=== PATIENT | male | born 1945 | race Caucasian/White ===

== ENCOUNTER → 2016-05-20 | Outpatient (CLI) | payer MEDICARE, BC ==
--- NOTE | 2016-05-20 12:15 | REP ---
Clinical: Trauma. Technique: AP, lateral, bilateral oblique views left foot. Findings: The osseous structures and joint spaces are intact and normal for age. There is no evidence for acute fracture or dislocation. Surrounding soft tissues are unremarkable. No subcutaneous emphysema or radiodense foreign body. Small calcaneal heal spur. Impression: Age-appropriate left foot radiographs.
== END ==
LOC: M CLY 10:34
PROVIDERS: ATTEND Family Medicine
DX: M79.672 Pain in left foot (principal); E11.9 Type 2 diabetes mellitus without complications

== ENCOUNTER → 2016-05-20 | Outpatient (CLI) | payer MEDICARE, BC ==
[2016-05-20 17:10] LABS: ANION GAP 6 MEQ/L (8-16); BLOOD UREA NITROGEN 18 MG/DL (7-18); CALCIUM LEVEL 9.1 MG/DL (8.8-10.2); CARBON DIOXIDE LEVEL 31 MEQ/L (21-32); CHLORIDE LEVEL 104 MEQ/L (98-107); CREATININE FOR GFR 1.02 MG/DL (0.70-1.30); GLOMERULAR FILTRATION RATE > 60.0 (>42); GLUCOSE, FASTING 114 MG/DL (83-110); POTASSIUM SERUM 4.3 MEQ/L (3.5-5.1); SODIUM LEVEL 141 MEQ/L (136-145); URIC ACID 7.2 MG/DL (3.5-7.2)
== END ==
LOC: M CLY 10:13
PROVIDERS: ATTEND Family Medicine
DX: M79.672 Pain in left foot (principal); E11.9 Type 2 diabetes mellitus without complications

== ENCOUNTER → 2016-08-19 | Outpatient (REF) | payer MEDICARE, BC ==
[2016-08-19 11:29] LABS: ANION GAP 6 MEQ/L (8-16); BLOOD UREA NITROGEN 15 MG/DL (7-18); CALCIUM LEVEL 8.9 MG/DL (8.8-10.2); CARBON DIOXIDE LEVEL 31 MEQ/L (21-32); CHLORIDE LEVEL 103 MEQ/L (98-107); GLOMERULAR FILTRATION RATE > 60.0 (>42); GLUCOSE, FASTING 128 MG/DL (83-110); POTASSIUM SERUM 4.6 MEQ/L (3.5-5.1); SODIUM LEVEL 140 MEQ/L (136-145)
== END ==
LOC: M LABDRAWC 10:44
PROVIDERS: ATTEND Internal Medicine Cardiovascular Disease
DX: E11.9 Type 2 diabetes mellitus without complications (principal); I10 Essential (primary) hypertension; I25.10 Atherosclerotic heart disease of native coronary artery without angina pectoris

== ENCOUNTER → 2016-09-17 | Outpatient (REF) | payer MEDICARE, BC | LOC: M SFHCCLAY 08:31 | PROVIDERS: ATTEND Family Medicine | DX: E11.9 Type 2 diabetes mellitus without complications (principal); Z95.5 Presence of coronary angioplasty implant and graft; J44.9 Chronic obstructive pulmonary disease, unspecified ==

== ENCOUNTER → 2016-09-21 | Outpatient (REF) | payer MEDICARE, BC ==
[2016-09-21 11:56] LABS: MEAN CORPUSCULAR HEMOGLOBIN 33.8 pg (27.0-33.0); MEAN CORPUSCULAR HGB CONC 32.1 g/dl (32.0-36.5); MEAN CORPUSCULAR VOLUME 105.2 fl (80.0-96.0); RED CELL DISTRIBUTION WIDTH 12.1 % (11.5-14.5); WHITE BLOOD COUNT 4.9 K/mm3 (4.0-10.0)
[2016-09-21 12:39] LABS: ALBUMIN 3.9 GM/DL (3.2-5.2); ALKALINE PHOSPHATASE 63 U/L (45-117); ALT/SGPT 43 U/L (12-78); ANION GAP 6 MEQ/L (8-16); AST/SGOT 20 U/L (15-37); BILIRUBIN,TOTAL 0.8 MG/DL (0.2-1.0); BLOOD UREA NITROGEN 17 MG/DL (7-18); CALCIUM LEVEL 9.1 MG/DL (8.8-10.2); CARBON DIOXIDE LEVEL 31 MEQ/L (21-32); CHLORIDE LEVEL 105 MEQ/L (98-107); CHOLESTEROL LEVEL 119 MG/DL (<200); CREATININE FOR GFR 1.06 MG/DL (0.70-1.30); GLOMERULAR FILTRATION RATE > 60.0 (>42); GLUCOSE, FASTING 137 MG/DL (83-110); POTASSIUM SERUM 4.4 MEQ/L (3.5-5.1); SODIUM LEVEL 142 MEQ/L (136-145); TOTAL PROTEIN 6.9 GM/DL (6.4-8.2); TRIGLYCERIDES LEVEL 140 MG/DL (<150)
== END ==
LOC: M SFHCCLAY 07:05
PROVIDERS: ATTEND Family Medicine
DX: J44.9 Chronic obstructive pulmonary disease, unspecified (principal); E11.9 Type 2 diabetes mellitus without complications; Z95.5 Presence of coronary angioplasty implant and graft

== ENCOUNTER → 2016-10-14 | Outpatient (REF) | payer MEDICARE, BC ==
[2016-10-14 11:55] LABS: VITAMIN B12 LEVEL 270 PG/ML (247-911)
[2016-10-14 11:56] LABS: FOLATE > 24.0 NG/ML (>5.4)
== END ==
LOC: M SFHCCLAY 07:06
PROVIDERS: ATTEND Family Medicine
DX: D53.9 Nutritional anemia, unspecified (principal)
CPT/HCPCS: 82607; 82746; 83921; G0463

== ENCOUNTER → 2016-11-10 | Outpatient (CLI) | payer MEDICARE, BC ==
--- NOTE | 2016-11-10 12:34 | REP ---
Lumbar spine five views: There are no comparisons. There is mild grade 1 concave compression deformity of the L2 superior endplate. Vertebral body heights are otherwise normal. Vertebral alignment is normal. Interspacing is normal. There is surgical fusion at L5 S1 with pedicle screws and stabilization rods. The pedicles, facets and sacroiliac articulations are unremarkable. Impression: Grade 1 compression deformity of the L2 vertebral body superior endplate. Surgical fusion of L5 and S1. Otherwise, negative lumbar spine.
== END ==
LOC: M CLY 11:53
PROVIDERS: ATTEND Nurse Practitioner Family
DX: M51.36 Other intervertebral disc degeneration, lumbar region (principal); M43.27 Fusion of spine, lumbosacral region
CPT/HCPCS: 72110; G0463

== ENCOUNTER → 2016-12-07 | Outpatient (CLI) | payer MEDICARE, BC ==
--- NOTE | 2016-12-07 13:41 | REP ---
THREE-PHASE BONE SCAN OF THE LUMBAR SPINE REGION. HISTORY: Low back pain. TECHNIQUE: 21.6 mCi technetium 99m MDP is injected and standard imaging is acquired. FINDINGS: Anterior and posterior flow images are normal. Blood pool images show no abnormal soft tissue localization. Delayed scan images show normal distribution of skeletal tracer with uptake in bilateral kidneys and in the bladder. No abnormal lumbosacral spine uptake is seen. IMPRESSION: Negative three-phase bone scan imaging. Signed by Ankur Godoy MD 12/07/2016 03:53 P
== END ==
LOC: M RAD 10:13
PROVIDERS: ATTEND Orthopaedic Surgery
DX: M54.5 Low back pain (principal)
CPT/HCPCS: 78315; A9503

== ENCOUNTER → 2017-01-20 | Outpatient (REF) | payer MEDICARE, BC ==
[2017-01-20 17:42] LABS: MEAN CORPUSCULAR HEMOGLOBIN 33.7 pg (27.0-33.0); MEAN CORPUSCULAR HGB CONC 32.1 g/dl (32.0-36.5); MEAN CORPUSCULAR VOLUME 104.8 fl (80.0-96.0); PLATELET COUNT, AUTOMATED 250 10^3/uL (150-450); RED CELL DISTRIBUTION WIDTH 12.3 % (11.5-14.5); WHITE BLOOD COUNT 7.1 10^3/uL (4.0-10.0)
[2017-01-20 19:07] LABS: VITAMIN B12 LEVEL 318 PG/ML (247-911)
== END ==
LOC: M SFHCCLAY 11:13
PROVIDERS: ATTEND Family Medicine
DX: D53.9 Nutritional anemia, unspecified (principal); E11.9 Type 2 diabetes mellitus without complications; Z23 Encounter for immunization
CPT/HCPCS: 82607; 83036; 83540; 85027; 90662; G0008; G0463

== ENCOUNTER → 2017-04-20 | Outpatient (REF) | payer OTHER ==
[2017-04-20 19:06] LABS: ANION GAP 4 MEQ/L (8-16); BLOOD UREA NITROGEN 18 MG/DL (7-18); CALCIUM LEVEL 8.8 MG/DL (8.8-10.2); CARBON DIOXIDE LEVEL 32 MEQ/L (21-32); CHLORIDE LEVEL 104 MEQ/L (98-107); CREATININE FOR GFR 1.03 MG/DL (0.70-1.30); GLOMERULAR FILTRATION RATE > 60.0 (>42); GLUCOSE, FASTING 126 MG/DL (70-100); POTASSIUM SERUM 4.5 MEQ/L (3.5-5.1); SODIUM LEVEL 140 MEQ/L (136-145)
[2017-04-20 19:57] LABS: CREATININE, URINE 37.5 MG/DL; MALB URINE SIEMENS < 5.0 MG/L; MAU/CREAT RATIO 13.3 MCG/MG (0.0-30.0)
[2017-04-20 20:03] LABS: ESTIMATED AVERAGE GLUCOSE 169 MG/DL (60-110); HEMOGLOBIN A1c 7.5 %
== END ==
LOC: M SFHCCLAY 10:55
DX: I95.1 Orthostatic hypotension (principal); E11.9 Type 2 diabetes mellitus without complications
CPT/HCPCS: 83036

== ENCOUNTER → 2017-05-11 | Outpatient (CLI) | payer OTHER | LOC: M RAD 13:18 | DX: M51.26 Other intervertebral disc displacement, lumbar region (principal) | CPT/HCPCS: 72148 ==

== ENCOUNTER → 2017-08-09 | Outpatient (REF) | payer OTHER ==
[2017-08-09 14:05] LABS: AMORPHOUS SEDIMENT SMALL (NEGATIVE); APPEARANCE, URINE CLEAR (CLEAR); BACTERIA, URINE AUTO NEGATIVE (NEGATIVE); BILIRUBIN, URINE AUTO NEGATIVE (NEGATIVE); BLOOD, URINE BLOOD NEGATIVE (NEGATIVE); COLOR, URINE YELLOW (YELLOW); GLUCOSE, URINE (UA) AUTO NEGATIVE (NEGATIVE); KETONE, URINE AUTO NEGATIVE (NEGATIVE); LEUKOCYTE ESTERASE, URINE AUTO NEGATIVE (NEGATIVE); NITRITE, URINE AUTO NEGATIVE (NEGATIVE); PROTEIN, URINE AUTO NEGATIVE (NEGATIVE); RBC, URINE AUTO 1 /HPF (0-3); SPECIFIC GRAVITY URINE AUTO 1.014 (1.002-1.035); SQUAMOUS EPITHELIAL CELL UR AU 0 /HPF (0-6); UROBILINOGEN, URINE AUTO 0.2 mg/dL (0.0-2.0); WBC, URINE AUTO 0 /HPF (0-3)
== END ==
LOC: M SMT 12:57
DX: Z08 Encounter for follow-up examination after completed treatment for malignant neoplasm (principal); Z85.46 Personal history of malignant neoplasm of prostate; Z79.899 Other long term (current) drug therapy
CPT/HCPCS: 81001

== ENCOUNTER → 2017-08-09 | Outpatient (CLI) | payer OTHER ==
[2017-08-09 19:24] LABS: PROSTATIC SPECIFIC AG MONITOR 0.19 NG/ML (< 4.0)
== END ==
LOC: M SMT 13:33
DX: Z08 Encounter for follow-up examination after completed treatment for malignant neoplasm (principal); Z85.46 Personal history of malignant neoplasm of prostate
CPT/HCPCS: 84153

== ENCOUNTER → 2017-10-19 | Outpatient (REF) | payer OTHER ==
[2017-10-19 17:08] LABS: ALBUMIN 3.9 GM/DL (3.2-5.2); ALBUMIN/GLOBULIN RATIO 1.18 (1.00-1.93); ALKALINE PHOSPHATASE 69 U/L (45-117); ALT/SGPT 25 U/L (12-78); ANION GAP 7 MEQ/L (8-16); AST/SGOT 8 U/L (7-37); BILIRUBIN,TOTAL 0.5 MG/DL (0.2-1.0); BLOOD UREA NITROGEN 19 MG/DL (7-18); CARBON DIOXIDE LEVEL 31 MEQ/L (21-32); CHLORIDE LEVEL 105 MEQ/L (98-107); CREATININE FOR GFR 1.05 MG/DL (0.70-1.30); GLOMERULAR FILTRATION RATE > 60.0 (>42); GLUCOSE, FASTING 99 MG/DL (70-100); IRON (FE) 107 UG/DL (65-175); PERCENT SATURATION 31.8 % (19.7-50.0); POTASSIUM SERUM 4.3 MEQ/L (3.5-5.1); SODIUM LEVEL 143 MEQ/L (136-145); TOTAL IRON BINDING CAPACITY 336 UG/DL (250-450); TOTAL PROTEIN 7.2 GM/DL (6.4-8.2); VITAMIN B12 LEVEL 338 PG/ML (247-911)
[2017-10-19 17:11] LABS: ESTIMATED AVERAGE GLUCOSE 166 MG/DL (60-110); HEMOGLOBIN A1c 7.4 %
[2017-10-19 17:12] LABS: HEMATOCRIT 39.9 % (42.0-52.0); HEMOGLOBIN 12.9 g/dl (13.5-17.5); MEAN CORPUSCULAR HEMOGLOBIN 33.5 pg (27.0-33.0); MEAN CORPUSCULAR HGB CONC 32.3 g/dl (32.0-36.5); MEAN CORPUSCULAR VOLUME 103.6 fl (80.0-96.0); PLATELET COUNT, AUTOMATED 268 10^3/uL (150-450); RED BLOOD COUNT 3.85 10^6/uL (4.30-6.10); RED CELL DISTRIBUTION WIDTH 12.5 % (11.5-14.5); WHITE BLOOD COUNT 6.1 10^3/uL (4.0-10.0)
== END ==
LOC: M SFHCCLAY 10:51
DX: E11.9 Type 2 diabetes mellitus without complications (principal); D64.9 Anemia, unspecified
CPT/HCPCS: 83550

== ENCOUNTER 2017-10-25 07:09 | Day surgery (SDC) | payer OTHER ==
[2017-10-25] MEDS ORDERED: PROPOFOL 200 MG/20 ML VIAL As Ordered (07:12)
[2017-10-25] MEDS ORDERED: LIDOCAINE 2% INJ 100 MG/5 ML SDV (FOR ANES.) As Ordered (07:12)
== END 2017-10-25 08:52 | disposition home or self-care (01) ==
LOC: M OPP 07:09
DX: Z12.11 Encounter for screening for malignant neoplasm of colon (principal); Z86.010 Personal history of colon polyps; K57.30 Diverticulosis of large intestine without perforation or abscess without bleeding; I25.10 Atherosclerotic heart disease of native coronary artery without angina pectoris; Z95.5 Presence of coronary angioplasty implant and graft; E78.5 Hyperlipidemia, unspecified; E11.9 Type 2 diabetes mellitus without complications; M19.90 Unspecified osteoarthritis, unspecified site; M54.9 Dorsalgia, unspecified; Z85.46 Personal history of malignant neoplasm of prostate; Z92.3 Personal history of irradiation; J44.9 Chronic obstructive pulmonary disease, unspecified; G93.49 Other encephalopathy; Z87.891 Personal history of nicotine dependence; Z79.82 Long term (current) use of aspirin; Z79.899 Other long term (current) drug therapy; Z79.84 Long term (current) use of oral hypoglycemic drugs
CPT/HCPCS: G0105

== ENCOUNTER → 2018-02-16 | Outpatient (REF) | payer OTHER ==
[2018-02-16 16:49] LABS: ALBUMIN 3.9 GM/DL (3.2-5.2); ANION GAP 6 MEQ/L (8-16); BLOOD UREA NITROGEN 23 MG/DL (7-18); CALCIUM LEVEL 8.7 MG/DL (8.8-10.2); CARBON DIOXIDE LEVEL 30 MEQ/L (21-32); CHLORIDE LEVEL 102 MEQ/L (98-107); CREATININE FOR GFR 0.98 MG/DL (0.70-1.30); GLOMERULAR FILTRATION RATE > 60.0 (>42); GLUCOSE, FASTING 157 MG/DL (70-100); PHOSPHORUS LEVEL 2.8 MG/DL (2.5-4.9); POTASSIUM SERUM 4.8 MEQ/L (3.5-5.1); SODIUM LEVEL 138 MEQ/L (136-145)
[2018-02-16 17:01] LABS: ESTIMATED AVERAGE GLUCOSE 171 MG/DL (60-110); HEMOGLOBIN A1c 7.6 %
[2018-02-16 17:08] LABS: CREATININE, URINE 93.9 MG/DL; MALB URINE SIEMENS 5.1 MG/L; MAU/CREAT RATIO 5.4 MCG/MG (0.0-30.0)
== END ==
LOC: M SFHCCLAY 10:17
DX: I25.10 Atherosclerotic heart disease of native coronary artery without angina pectoris (principal); E11.9 Type 2 diabetes mellitus without complications
CPT/HCPCS: 80069

== ENCOUNTER → 2018-07-07 | Outpatient (REF) | payer MEDICARE ==
[~2018-07-07] MED LIST: ASPI1TAB15 PO; ATOR40TA75 PO; CARV3.12 PO; FLAX10002 PO; FLOM0.4C39 PO; FLON1SPR; GLUC500T PO; MAGN400C PO; MULT1TAB10 PO; OSTETAB4 PO; TIOT18INH INH; VENTAER IN
[2018-07-08 12:19] LABS: HEMOGLOBIN A1c 8.1 %
[2018-07-08 12:28] LABS: BLOOD UREA NITROGEN 23 MG/DL (7-18); CARBON DIOXIDE LEVEL 31 MEQ/L (21-32); CHLORIDE LEVEL 102 MEQ/L (98-107); CREATININE FOR GFR 1.04 MG/DL (0.70-1.30); GLOMERULAR FILTRATION RATE > 60.0 (>42); GLUCOSE, FASTING 171 MG/DL (70-100); POTASSIUM SERUM 5.5 MEQ/L (3.5-5.1); SODIUM LEVEL 138 MEQ/L (136-145)
== END ==
LOC: M SFHCCLAY 14:32
PROVIDERS: ATTEND Family Medicine
DX: E11.9 Type 2 diabetes mellitus without complications (principal); K52.9 Noninfective gastroenteritis and colitis, unspecified
CPT/HCPCS: 80048; 83036; 84443; G0463

== ENCOUNTER → 2018-07-08 | Outpatient (REF) | payer MEDICARE | LOC: M LABDRAWC 11:43 | PROVIDERS: ATTEND Family Medicine | DX: E11.9 Type 2 diabetes mellitus without complications (principal); K52.9 Noninfective gastroenteritis and colitis, unspecified ==

== ENCOUNTER → 2018-07-13 | Outpatient (REF) | payer MEDICARE | LOC: M SFHCCLAY 09:26 | PROVIDERS: ATTEND Family Medicine | DX: E87.5 Hyperkalemia (principal) ==

== ENCOUNTER → 2018-11-18 | Outpatient (REF) | payer MEDICARE ==
[2018-11-18 16:56] LABS: BLOOD UREA NITROGEN 18 MG/DL (7-18); CARBON DIOXIDE LEVEL 30 MEQ/L (21-32); CHLORIDE LEVEL 104 MEQ/L (98-107); CREATININE FOR GFR 1.01 MG/DL (0.70-1.30); GLOMERULAR FILTRATION RATE > 60.0 (>42); GLUCOSE, FASTING 141 MG/DL (70-100); POTASSIUM SERUM 4.4 MEQ/L (3.5-5.1); PROSTATIC SPECIFIC AG MONITOR 0.68 NG/ML (< 4.00); SODIUM LEVEL 141 MEQ/L (136-145)
[2018-11-18 17:17] LABS: HEMOGLOBIN A1c 8.6 %
== END ==
LOC: M SFHCCLAY 11:55
PROVIDERS: ATTEND Family Medicine
DX: E11.9 Type 2 diabetes mellitus without complications (principal); Z85.46 Personal history of malignant neoplasm of prostate
CPT/HCPCS: 80048; 83036; 84153; G0463

== ENCOUNTER → 2019-01-31 | Outpatient (REF) | payer MEDICARE ==
[2019-01-31 17:12] LABS: BASO % 0.4 % (0.0-1.0); EOS # 0.1 10^3/uL (0.0-0.5); EOS % 1.5 % (0.0-3.0); HEMATOCRIT 41.2 % (42.0-52.0); LYMPH # 1.5 10^3/uL (1.5-5.0); LYMPH % 20.5 % (24.0-44.0); MEAN CORPUSCULAR HEMOGLOBIN 33.8 pg (27.0-33.0); MEAN CORPUSCULAR HGB CONC 31.6 g/dl (32.0-36.5); NEUTROPHILS # 4.7 10^3/uL (1.5-8.5); NEUTROPHILS % 63.9 % (36.0-66.0); PLATELET COUNT, AUTOMATED 263 10^3/uL (150-450); RED BLOOD COUNT 3.85 10^6/uL (4.30-6.10); WHITE BLOOD COUNT 7.4 10^3/uL (4.0-10.0)
[2019-01-31 17:26] LABS: ALBUMIN 3.9 GM/DL (3.2-5.2); ALT/SGPT 38 U/L (12-78); BILIRUBIN,TOTAL 0.4 MG/DL (0.2-1.0); BLOOD UREA NITROGEN 21 MG/DL (7-18); C REACTIVE PROTEIN QUANTITATIV < 0.30 MG/DL (0.00-0.30); CALCIUM LEVEL 9.3 MG/DL (8.8-10.2); CARBON DIOXIDE LEVEL 32 MEQ/L (21-32); CHLORIDE LEVEL 103 MEQ/L (98-107); CREATININE FOR GFR 1.08 MG/DL (0.70-1.30); GLOMERULAR FILTRATION RATE > 60.0 (>42); GLUCOSE, FASTING 113 MG/DL (70-100); POTASSIUM SERUM 5.1 MEQ/L (3.5-5.1); SODIUM LEVEL 138 MEQ/L (136-145); TOTAL PROTEIN 6.9 GM/DL (6.4-8.2)
[2019-01-31 17:29] LABS: HEMOGLOBIN A1c 7.3 %
== END ==
LOC: M SFHCCLAY 10:45
PROVIDERS: ATTEND Family Medicine
DX: E11.9 Type 2 diabetes mellitus without complications (principal); S81.802D Unspecified open wound, left lower leg, subsequent encounter; Z23 Encounter for immunization
CPT/HCPCS: 80053; 83036; 85025; 86140; 90682; G0008; G0463

== ENCOUNTER → 2019-03-09 | Outpatient (CLI) | payer MEDICARE ==
--- NOTE | 2019-03-09 14:15 | REP ---
Five views left knee: 03/09/2019. Indication: Knee pain following injury. Comparison: None. Findings: There is no acute fracture, subluxation or dislocation. No lytic or blastic lesions are present. Peripheral vascular atherosclerotic disease is noted. There is no significant joint effusion. Impression: No acute osseous injury of the left knee. Electronically Signed by Kolby Hauser DO 03/09/2019 02:07 P
== END ==
LOC: M CLY 11:48
PROVIDERS: ATTEND Family Medicine
DX: S89.92XA Unspecified injury of left lower leg, initial encounter (principal); W19.XXXA Unspecified fall, initial encounter; Y92.9 Unspecified place or not applicable
CPT/HCPCS: 73564; G0463

== ENCOUNTER → 2019-06-02 | Outpatient (REF) | payer MEDICARE ==
[2019-06-02 11:27] LABS: HEMATOCRIT 42.1 % (42.0-52.0); HEMOGLOBIN 13.4 g/dl (13.5-17.5); MEAN CORPUSCULAR HEMOGLOBIN 33.3 pg (27.0-33.0); MEAN CORPUSCULAR HGB CONC 31.8 g/dl (32.0-36.5); MEAN CORPUSCULAR VOLUME 104.7 fl (80.0-96.0); PLATELET COUNT, AUTOMATED 288 10^3/uL (150-450); RED BLOOD COUNT 4.02 10^6/uL (4.30-6.10); WHITE BLOOD COUNT 7.7 10^3/uL (4.0-10.0)
[2019-06-02 11:46] LABS: HEMOGLOBIN A1c 6.7 %
[2019-06-02 12:00] LABS: ALT/SGPT 45 U/L (12-78); BLOOD UREA NITROGEN 20 MG/DL (7-18); CALCIUM LEVEL 9.2 MG/DL (8.8-10.2); CARBON DIOXIDE LEVEL 29 MEQ/L (21-32); CHLORIDE LEVEL 106 MEQ/L (98-107); CREATININE FOR GFR 1.06 MG/DL (0.70-1.30); GLOMERULAR FILTRATION RATE > 60.0 (>42); GLUCOSE, FASTING 101 MG/DL (70-100); POTASSIUM SERUM 4.8 MEQ/L (3.5-5.1); SODIUM LEVEL 139 MEQ/L (136-145)
== END ==
LOC: M SFHCCLAY 08:45
PROVIDERS: ATTEND Family Medicine
DX: E11.9 Type 2 diabetes mellitus without complications (principal); I25.10 Atherosclerotic heart disease of native coronary artery without angina pectoris; J44.9 Chronic obstructive pulmonary disease, unspecified; M48.062 Spinal stenosis, lumbar region with neurogenic claudication

== ENCOUNTER → 2019-11-16 | Outpatient (REF) | payer MEDICARE ==
[~2019-11-16] MED LIST changes: +ASPI-546 PO; -ASPI1TAB15 PO
== END ==
LOC: M LAB REF 08:30
PROVIDERS: ATTEND Dermatology
DX: D04.61 Carcinoma in situ of skin of right upper limb, including shoulder (principal)

== ENCOUNTER → 2020-01-04 | Outpatient (REF) | payer MEDICARE ==
[2020-01-04 16:10] LABS: HEMATOCRIT 38.6 % (42.0-52.0); HEMOGLOBIN 11.9 g/dl (13.5-17.5); MEAN CORPUSCULAR HGB CONC 30.8 g/dl (32.0-36.5); MEAN CORPUSCULAR VOLUME 106.9 fl (80.0-96.0); PLATELET COUNT, AUTOMATED 246 10^3/uL (150-450); RED BLOOD COUNT 3.61 10^6/uL (4.30-6.10); WHITE BLOOD COUNT 7.2 10^3/uL (4.0-10.0)
[2020-01-04 16:30] LABS: HEMOGLOBIN A1c 6.8 %
[2020-01-04 16:41] LABS: ALBUMIN 3.5 GM/DL (3.2-5.2); ALT/SGPT 30 U/L (12-78); BILIRUBIN,TOTAL 0.4 MG/DL (0.2-1.0); BLOOD UREA NITROGEN 16 MG/DL (7-18); CALCIUM LEVEL 8.9 MG/DL (8.8-10.2); CARBON DIOXIDE LEVEL 32 MEQ/L (21-32); CHLORIDE LEVEL 105 MEQ/L (98-107); CREATININE FOR GFR 0.97 MG/DL (0.70-1.30); FREE T4 0.79 NG/DL (0.76-1.46); GLOMERULAR FILTRATION RATE > 60.0 (>42); GLUCOSE, FASTING 105 MG/DL (70-100); POTASSIUM SERUM 4.5 MEQ/L (3.5-5.1); PROLACTIN 3.6 NG/ML (2.1-17.7); SODIUM LEVEL 141 MEQ/L (136-145); TOTAL PROTEIN 6.7 GM/DL (6.4-8.2)
== END ==
LOC: M SFHCCLAY 14:21
PROVIDERS: ATTEND Family Medicine
DX: E11.9 Type 2 diabetes mellitus without complications (principal); D35.2 Benign neoplasm of pituitary gland; H61.22 Impacted cerumen, left ear; Z23 Encounter for immunization
CPT/HCPCS: 69210; 80053; 83036; 84146; 84439; 84443; 85027; 90682; G0008; G0463

== ENCOUNTER → 2020-01-22 | Outpatient (CLI) | payer MEDICARE ==
--- NOTE | 2020-01-22 15:44 | REP ---
INDICATION: PAIN IN RIGHT HIP, FALL AT SAME LEVEL AGAINST OBJECT. COMPARISON: None. TECHNIQUE: Two views right hip performed. FINDINGS: There is no acute fracture or dislocation. Hip joint appears relatively well preserved. There are scattered vascular calcifications in the soft tissues medially. IMPRESSION: No acute fracture or dislocation. <Electronically signed by Mejia Argueta > 01/22/20 [id number]
== END ==
LOC: M WUC 15:18
PROVIDERS: ATTEND Physician Assistant
DX: M25.551 Pain in right hip (principal)

== ENCOUNTER → 2020-02-06 | Outpatient (CLI) | payer MEDICARE ==
--- NOTE | 2020-02-06 12:37 | REP ---
INDICATION: J44.9, COPD. COMPARISON: PA chest 07/11/2014 TECHNIQUE: Two views FINDINGS: Lungs are hyperinflated with a changes COPD and bullous emphysematous changes mid and upper lung zones. There is some linear scarring in the left CP angle. Other areas of basilar scarring are noted there is no pleural effusion, pleural based mass, acute infiltrate or pulmonary nodule. The heart is not enlarged. The aorta is mildly tortuous but normal for age. The airway is intact pulmonary artery symmetric and unchanged. Bones show no compression deformity or focal lesion. There is an azygos lobe fissure in the medial right apex as anatomic variation. Surgical anchors are noted in the region of the right humeral head. There is no free air under the diaphragm. No compression deformity in the spine. IMPRESSION: : 1. 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 No effusion, acute infiltrate, atelectasis or mass. 2. No cardiomegaly or edema. <Electronically signed by Michael Garg > 02/06/20 [id number]
--- NOTE | 2020-02-06 12:41 | REP ---
INDICATION: M47.812, CERVICAL SPONDYLOSIS. COMPARISON: None. TECHNIQUE: Nine views are provided. FINDINGS: Number lordosis on the lateral view. Spondylosis at C5-6. No prevertebral swelling. Patient is edentulous. Flexion extension show a somewhat limited flexion but adequate extension and overall decreased range of motion. Cervicothoracic junction aligns normally. The dens is and lateral masses align normally on the open mouth view. There is no torticollis. Some facet arthropathy and uncinate spurring contributing to some narrowing of the C5-6 foramina on the right with uncinate spurring on the left at C5-6, mild. No torticollis. IMPRESSION: Degenerative disc and facet arthritic changes in the cervical spine. Decreased range of motion with no instability or compression fracture. Foraminal encroachment at C5-6 bilaterally due to uncinate and facet spurs. Posterior elements without acute finding. <Electronically signed by Michael Garg > 02/06/20 [id number]
--- NOTE | 2020-02-06 14:58 | REP ---
INDICATION: M25.512, PAIN IN LEFT SHOULDER. COMPARISON: None. TECHNIQUE: Three views provided. FINDINGS: The AC joint shows no narrowing the or widening of the joint space. There is no elevation of the clavicle in relationship to the acromion. Small inferior spurs. Clavicle and scapula are without fracture humeral head articulates normally with the glenoid with no subluxation dislocation and minimal degenerative changes inferiorly of the glenohumeral joint. Visualized ribs intact. No abnormal calcifications. IMPRESSION: 1. A single humeral joint degenerative change without visible or displaced fracture, avulsion, subluxation or abnormal soft tissue calcification. <Electronically signed by Michael Garg > 02/06/20 [id number]
== END ==
LOC: M CLY 11:16
PROVIDERS: ATTEND Family Medicine
DX: M19.012 Primary osteoarthritis, left shoulder (principal); J44.9 Chronic obstructive pulmonary disease, unspecified; M47.812 Spondylosis without myelopathy or radiculopathy, cervical region; M25.512 Pain in left shoulder

== ENCOUNTER → 2020-02-06 | Outpatient (REF) | payer MEDICARE ==
[2020-02-08 13:33] LABS: FOLATE 14.2 NG/ML (>5.4)
== END ==
LOC: M SFHCCLAY 12:08
PROVIDERS: ATTEND Family Medicine
DX: D53.9 Nutritional anemia, unspecified (principal)

== ENCOUNTER → 2020-02-12 | Outpatient (REF) | payer MEDICARE | LOC: M LAB REF 17:07 | PROVIDERS: ATTEND Dermatology | DX: L90.5 Scar conditions and fibrosis of skin (principal) ==

== ENCOUNTER → 2020-03-11 | Outpatient (CLI) | payer MEDICARE ==
--- NOTE | 2020-03-11 14:09 | REP ---
INDICATION: R07.9, CHEST PAIN. COMPARISON: Rib series dated 07/11 in 2014 and PA and lateral chest dated 02/06/2020. TECHNIQUE: Upright PA and lateral chest. FINDINGS: The lung dumont are clear but again appear hyperinflated. This is unchanged. There is minor chronic parenchymal scarring inferiorly in the left lung, unchanged. Cardiac size is normal. The rosenda, mediastinum, and skeletal structures are unremarkable for patient age except for 2 small orthopedic screws in the or right E humeral head, unchanged. IMPRESSION: Chronic hyperinflation. Chronic scarring inferiorly in the left lung. Small orthopedic screws in the right humeral head. No acute infiltrates or effusions. No masses or nodules. <Electronically signed by Mejia Ulrich > 03/11/20 [id number]
--- NOTE | 2020-03-11 14:11 | REP ---
INDICATION: R07.9, CHEST PAIN. COMPARISON: PA and lateral chest performed this same date. TECHNIQUE: There are five views. FINDINGS: There is no left rib fracture or other left rib abnormality. On the comparison PA and lateral views of the chest performed this same date there is no pneumothorax, hemothorax or pulmonary contusion. There is chronic minor scarring inferiorly in the left lung. IMPRESSION: No left rib fracture or other rib abnormality. <Electronically signed by Mejia Ulrich > 03/11/20 [id number]
== END ==
LOC: M CLY 13:37
PROVIDERS: ATTEND Physician Assistant
DX: R07.9 Chest pain, unspecified (principal)

== ENCOUNTER → 2020-04-18 | Outpatient (CLI) | payer MEDICARE ==
--- NOTE | 2020-04-18 09:38 | REP ---
INDICATION: WORSENING COUGH X 3 MONTHS, RECURRET RALES AND RONCHI. COMPARISON: Comparison chest x-ray March 11, 2020. TECHNIQUE: Two views.. FINDINGS: There is a zone linear fibrosis again noted in the left base. Mild interstitial fibrosis is seen in the right base. Lung dumont are otherwise clear. An azygos lobe is again noted incidentally. Pleural angles are sharp. Heart is not enlarged. Aorta is somewhat tortuous. Metallic orthopedic anchors are noted in the right humeral head. No acute bony abnormality. IMPRESSION: Bibasilar fibrosis mild in degree. No active disease.. <Electronically signed by Binh Godoy > 04/18/20 [id number]
== END ==
LOC: M CLY 09:16
PROVIDERS: ATTEND Physician Assistant
DX: R05 Cough (principal)

== ENCOUNTER → 2020-05-09 | Outpatient (CLI) | payer MEDICARE ==
--- NOTE | 2020-05-09 11:57 | REP ---
INDICATION: TENDINOPATHY; F/U BLOOD PRESSURE. COMPARISON: Comparison chest x-ray April 18, 2020. TECHNIQUE: Two views.. FINDINGS: An azygos lobe is noted in the right lung apex incidentally and unchanged. There is linear fibrosis in the left base. Lung dumont are otherwise clear. Pleural angles are sharp. Heart size is normal and unchanged. Pulmonary vasculature is not increased. There are 2 orthopedic anchors in the humeral head on the right. IMPRESSION: Linear fibrosis left base. Azygos lobe. No active disease.. <Electronically signed by Binh Godoy > 05/09/20 [id number]
== END ==
LOC: M CLY 10:56
PROVIDERS: ATTEND Family Medicine
DX: J84.10 Pulmonary fibrosis, unspecified (principal); M67.90 Unspecified disorder of synovium and tendon, unspecified site

== ENCOUNTER → 2020-05-23 | Outpatient (REF) | payer MEDICARE ==
[2020-05-23 13:57] LABS: APPEARANCE, URINE CLEAR (CLEAR); BACTERIA, URINE AUTO NEGATIVE (NEGATIVE); BILIRUBIN, URINE AUTO NEGATIVE (NEGATIVE); BLOOD, URINE BLOOD NEGATIVE (NEGATIVE); COLOR, URINE YELLOW (YELLOW); GLUCOSE, URINE (UA) AUTO NEGATIVE (NEGATIVE); KETONE, URINE AUTO NEGATIVE (NEGATIVE); LEUKOCYTE ESTERASE, URINE AUTO NEGATIVE (NEGATIVE); NITRITE, URINE AUTO NEGATIVE (NEGATIVE); PROTEIN, URINE AUTO NEGATIVE (NEGATIVE); RBC, URINE AUTO 17 /HPF (0-3); SPECIFIC GRAVITY URINE AUTO 1.016 (1.002-1.035); SQUAMOUS EPITHELIAL CELL UR AU 0 /HPF (0-6); UROBILINOGEN, URINE AUTO 0.2 mg/dL (0.0-2.0); WBC, URINE AUTO 1 /HPF (0-3)
== END ==
LOC: M SMT 13:20
PROVIDERS: ATTEND Nurse Practitioner Women's Health
DX: R39.198 Other difficulties with micturition (principal)

== ENCOUNTER → 2020-05-24 | Outpatient (REF) | payer MEDICARE | LOC: M LABSMT 10:41 | PROVIDERS: ATTEND Nurse Practitioner Women's Health | DX: Z85.46 Personal history of malignant neoplasm of prostate (principal) ==

== ENCOUNTER → 2020-09-10 | Outpatient (REF) | payer MEDICARE ==
[2020-09-10 17:02] LABS: BLOOD UREA NITROGEN 23 MG/DL (7-18); CALCIUM LEVEL 9.7 MG/DL (8.8-10.2); CARBON DIOXIDE LEVEL 28 MEQ/L (21-32); CHLORIDE LEVEL 107 MEQ/L (98-107); CREATININE FOR GFR 0.92 MG/DL (0.70-1.30); GLOMERULAR FILTRATION RATE > 60.0 (>42); GLUCOSE, FASTING 67 MG/DL (70-100); POTASSIUM SERUM 4.8 MEQ/L (3.5-5.1); SODIUM LEVEL 140 MEQ/L (136-145)
[2020-09-10 17:20] LABS: PROLACTIN 8.4 NG/ML (2.1-17.7)
[2020-09-10 19:30] LABS: HEMOGLOBIN A1c 6.4 %
== END ==
LOC: M SFHCCLAY 11:48
PROVIDERS: ATTEND Family Medicine
DX: I87.332 Chronic venous hypertension (idiopathic) with ulcer and inflammation of left lower extremity (principal); I87.2 Venous insufficiency (chronic) (peripheral); E11.9 Type 2 diabetes mellitus without complications; D35.2 Benign neoplasm of pituitary gland; K59.01 Slow transit constipation

== ENCOUNTER → 2021-01-23 | Outpatient (REF) | payer MEDICARE ==
[2021-01-23 14:10] LABS: FOLATE 10.5 NG/ML
[2021-01-23 14:11] LABS: HEMOGLOBIN A1c 5.9 %
== END ==
LOC: M LABDRAWC 11:45
PROVIDERS: ATTEND Psychiatry & Neurology Neurology
DX: G62.9 Polyneuropathy, unspecified (principal); E61.0 Copper deficiency

== ENCOUNTER → 2021-04-28 | Outpatient (REF) | payer MEDICARE | LOC: M LABDRAWC 11:16 | PROVIDERS: ATTEND Physician Assistant Medical | DX: E23.6 Other disorders of pituitary gland (principal) ==

== ENCOUNTER → 2021-04-30 | Outpatient (CLI) | payer MEDICARE ==
[~2021-04-30] MED LIST changes: +PROHANCE 279.3MG/ML 15ML VIAL ONE; +PROHANCE 279.3MG/ML 5ML VIAL ONE
== END ==
LOC: M PLAIMG 10:09
PROVIDERS: ATTEND Neurological Surgery
DX: G95.0 Syringomyelia and syringobulbia (principal); R26.9 Unspecified abnormalities of gait and mobility; W19.XXXD Unspecified fall, subsequent encounter; Y92.9 Unspecified place or not applicable
CPT/HCPCS: 72157; A9576

== ENCOUNTER → 2021-05-23 | Outpatient (CLI) | payer MEDICARE ==
[~2021-05-23] MED LIST changes: -PROHANCE 279.3MG/ML 15ML VIAL ONE; -PROHANCE 279.3MG/ML 5ML VIAL ONE
== END ==
LOC: M CLY 13:39
PROVIDERS: ATTEND Thoracic Surgery (Cardiothoracic Vascular Surgery)
DX: L97.329 Non-pressure chronic ulcer of left ankle with unspecified severity (principal)

== ENCOUNTER → 2021-06-18 | Outpatient (REF) | payer MEDICARE ==
[2021-06-19 12:32] LABS: HEMOGLOBIN A1c 5.9 %
== END ==
LOC: M SFHCCLAY 14:16
PROVIDERS: ATTEND Family Medicine
DX: I25.10 Atherosclerotic heart disease of native coronary artery without angina pectoris (principal); E11.9 Type 2 diabetes mellitus without complications; Z85.46 Personal history of malignant neoplasm of prostate

== ENCOUNTER → 2021-07-01 | Outpatient (CLI) | payer MEDICARE | LOC: M PLAIMG 10:53 | PROVIDERS: ATTEND Surgery | DX: E11.622 Type 2 diabetes mellitus with other skin ulcer (principal); M79.89 Other specified soft tissue disorders; M19.072 Primary osteoarthritis, left ankle and foot; L97.529 Non-pressure chronic ulcer of other part of left foot with unspecified severity ==

== ENCOUNTER → 2021-07-23 | Outpatient (CLI) | payer MEDICARE ==
[~2021-07-23] MED LIST changes: +E-Z-GAS II EFFERVESCENT PACKET (SODIUM BICARB./CITRIC ACID/SIMETHICONE) As Ordered ONE; +E-Z-HD 98% w/w 340GM SUSP BTL As Ordered ONE; +E-Z-PAQUE 96% w/w SUSP 176GM BTL As Ordered ONE
== END ==
LOC: M RAD 07-07 09:41
PROVIDERS: ATTEND Family Medicine
DX: R10.13 Epigastric pain (principal)

== ENCOUNTER → 2021-08-15 | Outpatient (CLI) | payer MEDICARE ==
[~2021-08-15] MED LIST changes: -E-Z-GAS II EFFERVESCENT PACKET (SODIUM BICARB./CITRIC ACID/SIMETHICONE) As Ordered ONE; -E-Z-HD 98% w/w 340GM SUSP BTL As Ordered ONE; -E-Z-PAQUE 96% w/w SUSP 176GM BTL As Ordered ONE; +GLIM2TAB29; +LISI10TA22; +SERT50TA29
== END ==
LOC: M LABSMTC 11:14
PROVIDERS: ATTEND Anesthesiology
DX: Z01.812 Encounter for preprocedural laboratory examination (principal); Z20.822 Contact with and (suspected) exposure to COVID-19

== ENCOUNTER 2021-08-19 06:38 | Day surgery (SDC) | payer MEDICARE ==
[~2021-08-19] VITALS: Ht 180.3 cm; Wt 106.0 kg
[~2021-08-19 06:38] MED LIST changes: +NS 1,000 ML IV ONE
[2021-08-19] MEDS ORDERED: LIDOCAINE 2% 100MG/5ML SDV (FOR ANES.) As Ordered ONE (06:39)
[2021-08-19] MEDS ORDERED: propofoL 500 MG/50 ML VIAL As Ordered ONE (06:39)
[2021-08-19] MEDS ORDERED: fentaNYL 100 MCG/2 ML INJECTION As Ordered ONE (07:24)
[2021-08-19 08:30] VITALS: BP 158/70
== END 2021-08-19 08:40 | disposition home or self-care (01) ==
LOC: M OPP 06:38
PROVIDERS: ATTEND Internal Medicine Gastroenterology
DX: K57.30 Diverticulosis of large intestine without perforation or abscess without bleeding (principal); K64.8 Other hemorrhoids; R10.84 Generalized abdominal pain; K29.70 Gastritis, unspecified, without bleeding; K20.90 Esophagitis, unspecified without bleeding; R10.13 Epigastric pain; Z79.82 Long term (current) use of aspirin; Z79.84 Long term (current) use of oral hypoglycemic drugs; Z79.899 Other long term (current) drug therapy; Z95.5 Presence of coronary angioplasty implant and graft; Z85.46 Personal history of malignant neoplasm of prostate; Z92.3 Personal history of irradiation
CPT/HCPCS: 43239; 45378; 88305; J3010

== ENCOUNTER → 2021-09-26 | Outpatient (REF) | payer MEDICARE ==
[~2021-09-26] MED LIST changes: -NS 1,000 ML IV ONE
== END ==
LOC: M SFHCCLAY 15:22
PROVIDERS: ATTEND Family Medicine
DX: L97.329 Non-pressure chronic ulcer of left ankle with unspecified severity (principal)

== ENCOUNTER → 2021-09-30 | Outpatient (REF) | payer MEDICARE ==
[2021-09-30 12:20] LABS: CHOLESTEROL RISK RATIO 3.902 (<5)
== END ==
LOC: M LABDRAWC 11:20
PROVIDERS: ATTEND Nurse Practitioner Family
DX: E78.00 Pure hypercholesterolemia, unspecified (principal)

== ENCOUNTER 2021-10-10 18:16 | Emergency (ER) | payer MEDICARE ==
[~2021-10-10] VITALS: Ht 180.3 cm; Wt 106.8 kg
[2021-10-10] MEDS ORDERED: ONDANSETRON 4MG 2ML VIAL IV ONE (19:20)
[2021-10-10 19:54] LABS: BASO % 0.2 % (0.0-1.0); EOS % 0.2 % (0.0-3.0); HEMOGLOBIN 12.8 g/dl (13.5-17.5); LYMPH # 0.7 10^3/uL (1.5-5.0); LYMPH % 6.9 % (24.0-44.0); MEAN CORPUSCULAR HEMOGLOBIN 33.4 pg (27.0-33.0); MEAN CORPUSCULAR VOLUME 104.4 fl (80.0-96.0); MONO # 0.8 10^3/uL (0.0-0.8); MONO % 7.9 % (2.0-8.0); NEUTROPHILS % 84.4 % (36.0-66.0); PLATELET COUNT, AUTOMATED 241 10^3/uL (150-450); RED BLOOD COUNT 3.83 10^6/uL (4.30-6.10); WHITE BLOOD COUNT 9.5 10^3/uL (4.0-10.0)
[2021-10-10 20:05] LABS: INR 0.94; PARTIAL THROMBOPLASTIN TIME 26.9 SECONDS (25.9-37.0)
[2021-10-10] MEDS ORDERED: niCARdipine IV 40 MG in IV 1 EA IV SCH (20:10)
[2021-10-10 20:14] LABS: BLOOD UREA NITROGEN 15 MG/DL (7-18); CALCIUM LEVEL 8.6 MG/DL (8.8-10.2); CARBON DIOXIDE LEVEL 26 MEQ/L (21-32); CHLORIDE LEVEL 110 MEQ/L (98-107); GLOMERULAR FILTRATION RATE > 60.0 (>42); GLUCOSE, FASTING 114 MG/DL (70-100); POTASSIUM SERUM 3.8 MEQ/L (3.5-5.1); SODIUM LEVEL 143 MEQ/L (136-145)
[2021-10-10] MEDS ORDERED: DESMOPRESSIN ACETATE IV ONE (21:00)
[2021-10-10] MEDS ORDERED: NS IV ONE (21:00)
[2021-10-10 21:02] LABS: RSV AMPLIFICATION NEGATIVE (NEGATIVE)
[2021-10-10 21:27] VITALS: BP 136/61
== END 2021-10-10 21:45 | disposition short-term general hospital (02) ==
LOC: EDBD 18:16 → M ED 18:16
DX: S02.0XXA Fracture of vault of skull, initial encounter for closed fracture (principal); S06.5X9A Traumatic subdural hemorrhage with loss of consciousness of unspecified duration, initial encounter; I44.0 Atrioventricular block, first degree; W10.9XXA Fall (on) (from) unspecified stairs and steps, initial encounter; Y92.099 Unspecified place in other non-institutional residence as the place of occurrence of the external cause; E11.9 Type 2 diabetes mellitus without complications; E78.00 Pure hypercholesterolemia, unspecified; M47.812 Spondylosis without myelopathy or radiculopathy, cervical region; Z79.82 Long term (current) use of aspirin; Z79.899 Other long term (current) drug therapy
CPT/HCPCS: 70450; 72125; 80048; 85025; 85610; 85730; 87631; 93005; 96365; 96367; 96375; 99285; J2405; J2597

== ENCOUNTER 2021-10-20 10:31 | Inpatient (IN) | payer MEDICARE ==
[~2021-10-20 10:31] MED LIST changes: -GLIM2TAB29; +GLIM2TAB29 PO; -SERT50TA29; +SERT50TA29 PO
[2021-10-20] MEDS ORDERED: MECLIZINE 12.5 MG TAB PO PRN (11:25)
[2021-10-20] MEDS ORDERED: GLUCOSE 4GM CHEW TABLET PO PRN (11:25)
[2021-10-20] MEDS ORDERED: ONDANSETRON 4MG TAB PO PRN (11:25)
[2021-10-20] MEDS ORDERED: GLUCAGON INJ 1MG VIAL SC PRN (11:25)
[2021-10-20] MEDS ORDERED: DEXTROSE 50% 50 ML SYRINGE IV PRN (11:25)
[2021-10-20] MEDS ORDERED: ACETAMINOPHEN TAB 650MG DOSE (2X325MG) PO PRN (11:25)
[2021-10-20 12:40] VITALS: BP 128/60
[2021-10-20 14:00] VITALS: BP 145/82
[2021-10-20] MEDS ORDERED: LIDO5TD TOP (14:00)
[2021-10-20] MEDS ORDERED: APAP325T4 PO (14:00)
[2021-10-20] MEDS ORDERED: VITA100093 PO (14:00)
[2021-10-20] MEDS ORDERED: MIRA3350 PO (14:00)
[2021-10-20] MEDS ORDERED: ASCO500T PO (14:00)
[2021-10-20] MEDS ORDERED: TREL1AER INH (14:00)
[2021-10-20] MEDS ORDERED: HYDR-643 PO (14:00)
[2021-10-20] MEDS ORDERED: OXYB5TAB10 PO (14:00)
[2021-10-20] MEDS ORDERED: VITA1TAB35 PO (14:00)
[2021-10-20] MEDS ORDERED: METF500T13 PO (14:00)
[2021-10-20] MEDS ORDERED: DOCU100C16 PO (14:00)
[2021-10-20] MEDS ORDERED: SODI1TAB6 PO (14:00)
[2021-10-20] MEDS ORDERED: FINA5TAB2 PO (14:00)
[2021-10-20] MEDS ORDERED: LISI5TAB11 PO (14:00)
[2021-10-20] MEDS ORDERED: ENOX40IN3 SC (14:00)
[2021-10-20] MEDS ORDERED: PANT40TA29 PO (14:00)
[2021-10-20] MEDS: ALBUTEROL 90 MCG/ACT 8GM HFA INHALER INH SCH ×2 (14:00→19:58)
[2021-10-20] MEDS ORDERED: INSUHUMDS SC (14:01)
[2021-10-20] MEDS ORDERED: HOME MED LIST COMPLETE! XX SCH (14:05)
[2021-10-20] MEDS ORDERED: PILL CUTTER 1 EACH XX PRN (15:10)
[2021-10-20] MEDS: REMEDY PHYTOPLEX Z-GUARD PASTE 113GM TUBE (FROM STOREROOM PRODUCT) TOP SCH ×2 (16:00→20:48)
[2021-10-20] MEDS: guaiFENesin 200 MG TAB PO SCH ×2 (16:00→20:49)
[2021-10-20] MEDS: SERTRALINE HCL 25 MG TABLET PO SCH (17:13)
[2021-10-20] MEDS: PROPRANOLOL 10 MG TAB PO SCH ×2 (17:14→19:57)
[2021-10-20] MEDS: SODIUM CHLORIDE 1 GM TAB PO SCH (17:17)
[2021-10-20] MEDS: ACETAMINOPHEN 500 MG TAB PO SCH ×2 (17:18→20:49)
[2021-10-20] MEDS: INSULIN LISPRO (NovoLOG) PER UNIT SC SCH ×2 (17:30→20:47)
[2021-10-20] MEDS: lisinopriL 5 MG TAB PO SCH (19:58)
[2021-10-20 20:00] VITALS: BP 108/53
[2021-10-20] MEDS: DOCUSATE SODIUM 100MG CAPSULE PO SCH (20:47)
[2021-10-20] MEDS: SENNA 8.6 MG TAB (SENOKOT) PO SCH (20:48)
[2021-10-20] MEDS: ATORVASTATIN 20 MG TAB PO SCH (20:49)
[2021-10-20] MEDS: GABAPENTIN 100 MG CAP PO SCH (20:49)
[2021-10-20] MEDS: MAGNESIUM OXIDE 400MG TAB (MAG-OX) PO SCH (20:49)
[2021-10-20] MEDS: FLUTICASONE PROP 0.05% NASAL SPRAY 16 GM (FLONASE) NARES SCH (20:50)
[2021-10-21 05:59] LABS: BASO % 0.6 % (0.0-1.0); EOS # 0.2 10^3/uL (0.0-0.5); EOS % 2.8 % (0.0-3.0); HEMATOCRIT 34.7 % (42.0-52.0); HEMOGLOBIN 11.2 g/dl (13.5-17.5); LYMPH # 1.4 10^3/uL (1.5-5.0); MEAN CORPUSCULAR HEMOGLOBIN 33.6 pg (27.0-33.0); MEAN CORPUSCULAR HGB CONC 32.3 g/dl (32.0-36.5); MEAN CORPUSCULAR VOLUME 104.2 fl (80.0-96.0); MONO # 0.7 10^3/uL (0.0-0.8); MONO % 13.7 % (2.0-8.0); PLATELET COUNT, AUTOMATED 263 10^3/uL (150-450); RED BLOOD COUNT 3.33 10^6/uL (4.30-6.10); WHITE BLOOD COUNT 5.3 10^3/uL (4.0-10.0)
[2021-10-21 06:00] VITALS: BP 131/60
[2021-10-21] MEDS: INSULIN LISPRO (NovoLOG) PER UNIT SC SCH ×4 (07:30→21:00)
[2021-10-21 07:36] LABS: ALT/SGPT 25 IU/L (0-32); BLOOD UREA NITROGEN 11 MG/DL (7-18); CALCIUM LEVEL 8.8 MG/DL (8.8-10.2); CARBON DIOXIDE LEVEL 26 mmol/L (20-29); CHLORIDE LEVEL 109 MEQ/L (98-107); CREATININE FOR GFR 1.12 MG/DL (0.70-1.30); GLOMERULAR FILTRATION RATE > 60.0 (>42); GLUCOSE, FASTING 118 MG/DL (70-100); SODIUM LEVEL 142 MEQ/L (136-145)
[2021-10-21 07:37] LABS: BILIRUBIN,TOTAL 0.5 MG/DL (0.2-1.0); TOTAL PROTEIN 6.1 GM/DL (6.4-8.2)
[2021-10-21] MEDS ORDERED: MAGNESIUM OXIDE 400MG TAB (MAG-OX) PO SCH (09:00)
[2021-10-21] MEDS: ALBUTEROL 90 MCG/ACT 8GM HFA INHALER INH SCH ×3 (09:20→20:22)
[2021-10-21] MEDS: TIOTROPIUM INHALER/CAPSULE (SPIRIVA) INH SCH (09:20)
[2021-10-21] MEDS: DOCUSATE SODIUM 100MG CAPSULE PO SCH ×2 (09:27→19:26)
[2021-10-21] MEDS: SODIUM CHLORIDE 1 GM TAB PO SCH ×3 (09:27→18:42)
[2021-10-21] MEDS: SERTRALINE HCL 25 MG TABLET PO SCH (09:27)
[2021-10-21] MEDS: guaiFENesin 200 MG TAB PO SCH ×3 (09:27→21:00)
[2021-10-21] MEDS: PANTOPRAZOLE 40MG TAB (PROTONIX) PO SCH (09:27)
[2021-10-21] MEDS: oxyBUTYnin *DITROPAN XL* 5 MG TABCR PO SCH (09:27)
[2021-10-21] MEDS: lisinopriL 5 MG TAB PO SCH ×2 (09:28→21:09)
[2021-10-21] MEDS: TAMSULOSIN 0.4 MG CAP PO SCH (09:28)
[2021-10-21] MEDS: ASPIRIN 81MG ENTERIC TABLET PO SCH (09:28)
[2021-10-21] MEDS: FINASTERIDE 5MG TAB PO SCH (09:28)
[2021-10-21] MEDS: PROPRANOLOL 10 MG TAB PO SCH ×3 (09:29→21:00)
[2021-10-21] MEDS: REMEDY PHYTOPLEX Z-GUARD PASTE 113GM TUBE (FROM STOREROOM PRODUCT) TOP SCH ×3 (09:30→21:00)
[2021-10-21] MEDS: FLUTICASONE PROP 0.05% NASAL SPRAY 16 GM (FLONASE) NARES SCH ×2 (09:30→21:06)
[2021-10-21] MEDS: ACETAMINOPHEN 500 MG TAB PO SCH ×3 (09:30→21:00)
[2021-10-21 14:00] VITALS: BP 120/56
[2021-10-21] MEDS: SENNA 8.6 MG TAB (SENOKOT) PO SCH (19:26)
[2021-10-21 20:00] VITALS: BP 113/51
[2021-10-21] MEDS: ATORVASTATIN 20 MG TAB PO SCH (21:04)
[2021-10-21] MEDS: GABAPENTIN 100 MG CAP PO SCH (21:04)
[2021-10-21] MEDS: MAGNESIUM OXIDE 400MG TAB (MAG-OX) PO SCH (21:04)
[2021-10-22 06:00] VITALS: BP 132/66
[2021-10-22 06:59] LABS: BASO % 0.3 % (0.0-1.0); EOS # 0.1 10^3/uL (0.0-0.5); EOS % 2.3 % (0.0-3.0); HEMATOCRIT 37.2 % (42.0-52.0); HEMOGLOBIN 11.9 g/dl (13.5-17.5); LYMPH # 1.4 10^3/uL (1.5-5.0); LYMPH % 23.5 % (24.0-44.0); MEAN CORPUSCULAR HEMOGLOBIN 33.7 pg (27.0-33.0); MEAN CORPUSCULAR VOLUME 105.4 fl (80.0-96.0); MONO # 0.6 10^3/uL (0.0-0.8); MONO % 9.5 % (2.0-8.0); NEUTROPHILS # 3.8 10^3/uL (1.5-8.5); NEUTROPHILS % 63.9 % (36.0-66.0); PLATELET COUNT, AUTOMATED 276 10^3/uL (150-450); RED BLOOD COUNT 3.53 10^6/uL (4.30-6.10)
[2021-10-22 07:21] LABS: BLOOD UREA NITROGEN 11 MG/DL (7-18); CARBON DIOXIDE LEVEL 27 MEQ/L (21-32); CHLORIDE LEVEL 107 MEQ/L (98-107); CREATININE FOR GFR 1.15 MG/DL (0.70-1.30); GLOMERULAR FILTRATION RATE > 60.0 (>42); GLUCOSE, FASTING 119 MG/DL (70-100); POTASSIUM SERUM 3.9 MEQ/L (3.5-5.1); SODIUM LEVEL 138 MEQ/L (136-145)
[2021-10-22] MEDS: ALBUTEROL 90 MCG/ACT 8GM HFA INHALER INH SCH ×3 (07:24→19:37)
[2021-10-22] MEDS: TIOTROPIUM INHALER/CAPSULE (SPIRIVA) INH SCH (07:24)
[2021-10-22 07:28] LABS: HEMOGLOBIN A1c 5.7 %
[2021-10-22] MEDS: INSULIN LISPRO (NovoLOG) PER UNIT SC SCH ×4 (07:30→21:00)
[2021-10-22] MEDS: TAMSULOSIN 0.4 MG CAP PO SCH (08:01)
[2021-10-22] MEDS: guaiFENesin 200 MG TAB PO SCH ×3 (08:01→21:14)
[2021-10-22] MEDS: SODIUM CHLORIDE 1 GM TAB PO SCH ×3 (08:01→17:01)
[2021-10-22] MEDS: SERTRALINE HCL 25 MG TABLET PO SCH (08:01)
[2021-10-22] MEDS: ASPIRIN 81MG ENTERIC TABLET PO SCH (08:01)
[2021-10-22] MEDS: ACETAMINOPHEN 500 MG TAB PO SCH ×3 (08:02→21:15)
[2021-10-22] MEDS: PANTOPRAZOLE 40MG TAB (PROTONIX) PO SCH (08:03)
[2021-10-22] MEDS: oxyBUTYnin *DITROPAN XL* 5 MG TABCR PO SCH (08:03)
[2021-10-22] MEDS: lisinopriL 5 MG TAB PO SCH ×2 (08:03→21:14)
[2021-10-22] MEDS: PROPRANOLOL 10 MG TAB PO SCH ×3 (08:03→21:13)
[2021-10-22] MEDS: FINASTERIDE 5MG TAB PO SCH (08:03)
[2021-10-22] MEDS: DOCUSATE SODIUM 100MG CAPSULE PO SCH ×2 (08:04→21:00)
[2021-10-22] MEDS: FLUTICASONE PROP 0.05% NASAL SPRAY 16 GM (FLONASE) NARES SCH ×2 (08:04→21:19)
[2021-10-22] MEDS: REMEDY PHYTOPLEX Z-GUARD PASTE 113GM TUBE (FROM STOREROOM PRODUCT) TOP SCH ×3 (08:04→21:20)
[2021-10-22] MEDS: LACTOBACILLUS ACIDOPHILUS CAP (BACID) PO SCH ×3 (11:43→21:14)
[2021-10-22] MEDS: GABAPENTIN 100 MG CAP PO SCH ×3 (11:43→21:12)
[2021-10-22] MEDS: CEFDINIR 300 MG CAP (OMNICEF) PO SCH ×2 (11:43→21:14)
[2021-10-22] MEDS: SALIVA SUBSTITUTE(MOUTHKOTE) BTL MT SCH ×3 (12:43→21:12)
[2021-10-22] MEDS: EZETIMIBE 10MG TABLET (ZETIA) PO SCH (12:43)
[2021-10-22] MEDS: POLYVINYL ALCOHOL OPHTH SOLN 15 ML(LIQUITEARS) OU SCH ×3 (12:44→21:00)
[2021-10-22] MEDS: ANALGESIC BALM CRM 3OZ TOP SCH ×2 (17:02→21:20)
[2021-10-22 20:00] VITALS: BP 129/80
[2021-10-22] MEDS: SENNA 8.6 MG TAB (SENOKOT) PO SCH (21:00)
[2021-10-22] MEDS: ATORVASTATIN 20 MG TAB PO SCH (21:14)
[2021-10-22] MEDS: MAGNESIUM OXIDE 400MG TAB (MAG-OX) PO SCH (21:14)
[2021-10-23 05:12] VITALS: BP 158/74
[2021-10-23 05:22] VITALS: BP 136/64
[2021-10-23] MEDS: INSULIN LISPRO (NovoLOG) PER UNIT SC SCH ×2 (07:30→12:00)
[2021-10-23] MEDS: ALBUTEROL 90 MCG/ACT 8GM HFA INHALER INH SCH ×3 (07:46→20:00)
[2021-10-23] MEDS: TIOTROPIUM INHALER/CAPSULE (SPIRIVA) INH SCH (07:46)
[2021-10-23] MEDS: DOCUSATE SODIUM 100MG CAPSULE PO SCH ×3 (07:54→20:19)
[2021-10-23] MEDS: TAMSULOSIN 0.4 MG CAP PO SCH (08:47)
[2021-10-23] MEDS: GABAPENTIN 100 MG CAP PO SCH ×3 (08:47→20:19)
[2021-10-23] MEDS: ASPIRIN 81MG ENTERIC TABLET PO SCH (08:47)
[2021-10-23] MEDS: LACTOBACILLUS ACIDOPHILUS CAP (BACID) PO SCH ×4 (08:47→20:19)
[2021-10-23] MEDS: CEFDINIR 300 MG CAP (OMNICEF) PO SCH ×2 (08:47→20:19)
[2021-10-23] MEDS: guaiFENesin 200 MG TAB PO SCH ×3 (08:48→20:18)
[2021-10-23] MEDS: FINASTERIDE 5MG TAB PO SCH (08:48)
[2021-10-23] MEDS: SODIUM CHLORIDE 1 GM TAB PO SCH ×3 (08:48→18:38)
[2021-10-23] MEDS: PANTOPRAZOLE 40MG TAB (PROTONIX) PO SCH (08:48)
[2021-10-23] MEDS: PROPRANOLOL 10 MG TAB PO SCH ×3 (08:50→20:23)
[2021-10-23] MEDS: EZETIMIBE 10MG TABLET (ZETIA) PO SCH (08:51)
[2021-10-23] MEDS: lisinopriL 5 MG TAB PO SCH ×2 (08:51→20:23)
[2021-10-23] MEDS: ACETAMINOPHEN 500 MG TAB PO SCH ×3 (08:52→20:21)
[2021-10-23] MEDS: SERTRALINE HCL 25 MG TABLET PO SCH (08:52)
[2021-10-23] MEDS: REMEDY PHYTOPLEX Z-GUARD PASTE 113GM TUBE (FROM STOREROOM PRODUCT) TOP SCH ×3 (09:10→20:21)
[2021-10-23] MEDS: SALIVA SUBSTITUTE(MOUTHKOTE) BTL MT SCH ×4 (09:11→20:20)
[2021-10-23] MEDS: FLUTICASONE PROP 0.05% NASAL SPRAY 16 GM (FLONASE) NARES SCH ×2 (09:11→20:20)
[2021-10-23] MEDS: POLYVINYL ALCOHOL OPHTH SOLN 15 ML(LIQUITEARS) OU SCH ×4 (09:11→20:21)
[2021-10-23] MEDS: ANALGESIC BALM CRM 3OZ TOP SCH ×3 (09:11→20:20)
[2021-10-23] MEDS: rOPINIRole 0.25 MG TAB(REQUIP) PO SCH ×2 (13:02→20:19)
[2021-10-23 14:00] VITALS: BP 120/52
[2021-10-23 19:15] LABS: APPEARANCE, URINE CLEAR (CLEAR); BACTERIA, URINE AUTO NEGATIVE (NEGATIVE); BILIRUBIN, URINE AUTO NEGATIVE (NEGATIVE); BLOOD, URINE BLOOD 1+ (NEGATIVE); COLOR, URINE STRAW (YELLOW); GLUCOSE, URINE (UA) AUTO NEGATIVE (NEGATIVE); KETONE, URINE AUTO NEGATIVE (NEGATIVE); LEUKOCYTE ESTERASE, URINE AUTO NEGATIVE (NEGATIVE); NITRITE, URINE AUTO NEGATIVE (NEGATIVE); PROTEIN, URINE AUTO NEGATIVE (NEGATIVE); RBC, URINE AUTO 2 /HPF (0-3); SPECIFIC GRAVITY URINE AUTO 1.009 (1.002-1.035); SQUAMOUS EPITHELIAL CELL UR AU 0 /HPF (0-6); UROBILINOGEN, URINE AUTO 0.2 mg/dL (0.0-2.0); WBC, URINE AUTO 0 /HPF (0-3)
[2021-10-23 20:00] VITALS: BP 153/66
[2021-10-23] MEDS: SENNA 8.6 MG TAB (SENOKOT) PO SCH (20:19)
[2021-10-23] MEDS: MAGNESIUM OXIDE 400MG TAB (MAG-OX) PO SCH (20:19)
[2021-10-23] MEDS: ATORVASTATIN 20 MG TAB PO SCH (20:19)
[2021-10-24 05:33] VITALS: BP 132/60
[2021-10-24] MEDS: ALBUTEROL 90 MCG/ACT 8GM HFA INHALER INH SCH ×3 (06:30→20:47)
[2021-10-24] MEDS: TIOTROPIUM INHALER/CAPSULE (SPIRIVA) INH SCH (06:30)
[2021-10-24 07:31] LABS: BASO % 0.5 % (0.0-1.0); EOS # 0.1 10^3/uL (0.0-0.5); EOS % 2.4 % (0.0-3.0); HEMATOCRIT 35.7 % (42.0-52.0); HEMOGLOBIN 11.1 g/dl (13.5-17.5); LYMPH # 1.3 10^3/uL (1.5-5.0); LYMPH % 22.9 % (24.0-44.0); MEAN CORPUSCULAR HEMOGLOBIN 32.5 pg (27.0-33.0); MEAN CORPUSCULAR HGB CONC 31.1 g/dl (32.0-36.5); MEAN CORPUSCULAR VOLUME 104.4 fl (80.0-96.0); MONO # 0.6 10^3/uL (0.0-0.8); MONO % 10.3 % (2.0-8.0); NEUTROPHILS # 3.7 10^3/uL (1.5-8.5); NEUTROPHILS % 63.4 % (36.0-66.0); PLATELET COUNT, AUTOMATED 265 10^3/uL (150-450); RED BLOOD COUNT 3.42 10^6/uL (4.30-6.10); WHITE BLOOD COUNT 5.8 10^3/uL (4.0-10.0)
[2021-10-24 08:12] LABS: BLOOD UREA NITROGEN 13 MG/DL (7-18); CALCIUM LEVEL 8.9 MG/DL (8.8-10.2); CARBON DIOXIDE LEVEL 25 MEQ/L (21-32); CHLORIDE LEVEL 110 MEQ/L (98-107); CREATININE FOR GFR 1.15 MG/DL (0.70-1.30); GLOMERULAR FILTRATION RATE > 60.0 (>42); GLUCOSE, FASTING 122 MG/DL (70-100); SODIUM LEVEL 143 MEQ/L (136-145)
[2021-10-24] MEDS: REMEDY PHYTOPLEX Z-GUARD PASTE 113GM TUBE (FROM STOREROOM PRODUCT) TOP SCH ×3 (09:00→21:00)
[2021-10-24] MEDS: SALIVA SUBSTITUTE(MOUTHKOTE) BTL MT SCH ×4 (10:31→21:00)
[2021-10-24] MEDS: SODIUM CHLORIDE 1 GM TAB PO SCH ×3 (10:31→17:45)
[2021-10-24] MEDS: DOCUSATE SODIUM 100MG CAPSULE PO SCH ×2 (10:31→21:17)
[2021-10-24] MEDS: TAMSULOSIN 0.4 MG CAP PO SCH (10:31)
[2021-10-24] MEDS: ASPIRIN 81MG ENTERIC TABLET PO SCH (10:31)
[2021-10-24] MEDS: GABAPENTIN 100 MG CAP PO SCH (10:32)
[2021-10-24] MEDS: PROPRANOLOL 10 MG TAB PO SCH ×3 (10:32→21:00)
[2021-10-24] MEDS: lisinopriL 5 MG TAB PO SCH ×2 (10:33→21:00)
[2021-10-24] MEDS: rOPINIRole 0.25 MG TAB(REQUIP) PO SCH ×2 (10:33→21:17)
[2021-10-24] MEDS: FINASTERIDE 5MG TAB PO SCH (10:33)
[2021-10-24] MEDS: CEFDINIR 300 MG CAP (OMNICEF) PO SCH ×2 (10:33→21:17)
[2021-10-24] MEDS: guaiFENesin 200 MG TAB PO SCH ×3 (10:34→21:00)
[2021-10-24] MEDS: LACTOBACILLUS ACIDOPHILUS CAP (BACID) PO SCH ×4 (10:34→21:17)
[2021-10-24] MEDS: ACETAMINOPHEN 500 MG TAB PO SCH ×3 (10:34→21:17)
[2021-10-24] MEDS: EZETIMIBE 10MG TABLET (ZETIA) PO SCH (10:34)
[2021-10-24] MEDS: SERTRALINE HCL 25 MG TABLET PO SCH (10:34)
[2021-10-24] MEDS: FLUTICASONE PROP 0.05% NASAL SPRAY 16 GM (FLONASE) NARES SCH ×2 (10:35→21:19)
[2021-10-24] MEDS: POLYVINYL ALCOHOL OPHTH SOLN 15 ML(LIQUITEARS) OU SCH ×4 (10:35→21:19)
[2021-10-24] MEDS: ANALGESIC BALM CRM 3OZ TOP SCH ×3 (10:36→21:00)
[2021-10-24] MEDS: PANTOPRAZOLE 40MG TAB (PROTONIX) PO SCH (10:41)
[2021-10-24 14:00] VITALS: BP 121/57
[2021-10-24 20:00] VITALS: BP 104/56
[2021-10-24] MEDS: ATORVASTATIN 20 MG TAB PO SCH (21:17)
[2021-10-24] MEDS: SENNA 8.6 MG TAB (SENOKOT) PO SCH (21:17)
[2021-10-24] MEDS: MAGNESIUM OXIDE 400MG TAB (MAG-OX) PO SCH (21:17)
[2021-10-25 06:00] VITALS: BP 108/71
[2021-10-25] MEDS: TIOTROPIUM INHALER/CAPSULE (SPIRIVA) INH SCH (07:23)
[2021-10-25] MEDS: ALBUTEROL 90 MCG/ACT 8GM HFA INHALER INH SCH ×3 (07:23→18:51)
[2021-10-25] MEDS: PROPRANOLOL 10 MG TAB PO SCH ×3 (09:00→19:59)
[2021-10-25] MEDS: DOCUSATE SODIUM 100MG CAPSULE PO SCH ×2 (09:00→19:16)
[2021-10-25] MEDS: lisinopriL 5 MG TAB PO SCH ×2 (09:00→19:58)
[2021-10-25] MEDS: LACTOBACILLUS ACIDOPHILUS CAP (BACID) PO SCH ×4 (09:18→19:59)
[2021-10-25] MEDS: guaiFENesin 200 MG TAB PO SCH ×3 (09:18→20:00)
[2021-10-25] MEDS: SODIUM CHLORIDE 1 GM TAB PO SCH ×3 (09:18→17:30)
[2021-10-25] MEDS: rOPINIRole 0.25 MG TAB(REQUIP) PO SCH ×2 (09:19→19:59)
[2021-10-25] MEDS: ASPIRIN 81MG ENTERIC TABLET PO SCH (09:19)
[2021-10-25] MEDS: PANTOPRAZOLE 40MG TAB (PROTONIX) PO SCH (09:19)
[2021-10-25] MEDS: EZETIMIBE 10MG TABLET (ZETIA) PO SCH (09:19)
[2021-10-25] MEDS: ACETAMINOPHEN 500 MG TAB PO SCH ×3 (09:19→20:00)
[2021-10-25] MEDS: CEFDINIR 300 MG CAP (OMNICEF) PO SCH ×2 (09:19→19:58)
[2021-10-25] MEDS: FINASTERIDE 5MG TAB PO SCH (09:20)
[2021-10-25] MEDS: TAMSULOSIN 0.4 MG CAP PO SCH (09:20)
[2021-10-25] MEDS: SALIVA SUBSTITUTE(MOUTHKOTE) BTL MT SCH ×4 (09:21→20:00)
[2021-10-25] MEDS: POLYVINYL ALCOHOL OPHTH SOLN 15 ML(LIQUITEARS) OU SCH ×4 (09:22→20:01)
[2021-10-25] MEDS: REMEDY PHYTOPLEX Z-GUARD PASTE 113GM TUBE (FROM STOREROOM PRODUCT) TOP SCH ×3 (09:22→20:01)
[2021-10-25] MEDS: FLUTICASONE PROP 0.05% NASAL SPRAY 16 GM (FLONASE) NARES SCH ×2 (09:22→20:00)
[2021-10-25] MEDS: ANALGESIC BALM CRM 3OZ TOP SCH ×3 (09:22→20:01)
[2021-10-25] MEDS: SERTRALINE HCL 25 MG TABLET PO SCH (09:40)
[2021-10-25 14:00] VITALS: BP 123/58
[2021-10-25] MEDS: SENNA 8.6 MG TAB (SENOKOT) PO SCH (19:16)
[2021-10-25] MEDS: MAGNESIUM OXIDE 400MG TAB (MAG-OX) PO SCH (19:59)
[2021-10-25 20:00] VITALS: BP 114/55
[2021-10-25] MEDS: ATORVASTATIN 20 MG TAB PO SCH (20:00)
[2021-10-26 06:00] VITALS: BP 130/60
[2021-10-26] MEDS: TIOTROPIUM INHALER/CAPSULE (SPIRIVA) INH SCH (07:16)
[2021-10-26] MEDS: ALBUTEROL 90 MCG/ACT 8GM HFA INHALER INH SCH ×3 (07:16→20:00)
[2021-10-26] MEDS: SODIUM CHLORIDE 1 GM TAB PO SCH ×3 (08:34→18:08)
[2021-10-26] MEDS: guaiFENesin 200 MG TAB PO SCH ×3 (08:34→20:23)
[2021-10-26] MEDS: LACTOBACILLUS ACIDOPHILUS CAP (BACID) PO SCH ×4 (08:34→20:21)
[2021-10-26] MEDS: ASPIRIN 81MG ENTERIC TABLET PO SCH (08:35)
[2021-10-26] MEDS: ACETAMINOPHEN 500 MG TAB PO SCH ×3 (08:35→20:23)
[2021-10-26] MEDS: rOPINIRole 0.25 MG TAB(REQUIP) PO SCH ×2 (08:35→20:23)
[2021-10-26] MEDS: EZETIMIBE 10MG TABLET (ZETIA) PO SCH (08:35)
[2021-10-26] MEDS: PANTOPRAZOLE 40MG TAB (PROTONIX) PO SCH (08:35)
[2021-10-26] MEDS: SERTRALINE HCL 25 MG TABLET PO SCH (08:35)
[2021-10-26] MEDS: FINASTERIDE 5MG TAB PO SCH (08:35)
[2021-10-26] MEDS: CEFDINIR 300 MG CAP (OMNICEF) PO SCH ×2 (08:35→20:21)
[2021-10-26] MEDS: TAMSULOSIN 0.4 MG CAP PO SCH (08:35)
[2021-10-26] MEDS: SALIVA SUBSTITUTE(MOUTHKOTE) BTL MT SCH ×4 (08:36→20:24)
[2021-10-26] MEDS: DOCUSATE SODIUM 100MG CAPSULE PO SCH ×2 (08:36→20:24)
[2021-10-26] MEDS: lisinopriL 5 MG TAB PO SCH ×3 (08:36→20:23)
[2021-10-26] MEDS: PROPRANOLOL 10 MG TAB PO SCH ×4 (08:36→20:24)
[2021-10-26] MEDS: ANALGESIC BALM CRM 3OZ TOP SCH ×3 (08:37→20:25)
[2021-10-26] MEDS: FLUTICASONE PROP 0.05% NASAL SPRAY 16 GM (FLONASE) NARES SCH ×2 (08:37→20:26)
[2021-10-26] MEDS: POLYVINYL ALCOHOL OPHTH SOLN 15 ML(LIQUITEARS) OU SCH ×4 (08:37→20:27)
[2021-10-26] MEDS: REMEDY PHYTOPLEX Z-GUARD PASTE 113GM TUBE (FROM STOREROOM PRODUCT) TOP SCH ×3 (08:37→20:25)
[2021-10-26 14:00] VITALS: BP 129/59
[2021-10-26 20:00] VITALS: BP 135/63
[2021-10-26] MEDS: MAGNESIUM OXIDE 400MG TAB (MAG-OX) PO SCH (20:21)
[2021-10-26] MEDS: ATORVASTATIN 20 MG TAB PO SCH (20:23)
[2021-10-26] MEDS: SENNA 8.6 MG TAB (SENOKOT) PO SCH (20:23)
[2021-10-27 05:34] VITALS: BP 118/56
[2021-10-27] MEDS: TIOTROPIUM INHALER/CAPSULE (SPIRIVA) INH SCH (07:45)
[2021-10-27] MEDS: ALBUTEROL 90 MCG/ACT 8GM HFA INHALER INH SCH ×2 (07:47→13:43)
[2021-10-27] MEDS: ACETAMINOPHEN 500 MG TAB PO SCH ×3 (09:00→21:52)
[2021-10-27] MEDS: SALIVA SUBSTITUTE(MOUTHKOTE) BTL MT SCH ×4 (09:00→21:53)
[2021-10-27] MEDS: ANALGESIC BALM CRM 3OZ TOP SCH ×3 (09:00→21:53)
[2021-10-27] MEDS: REMEDY PHYTOPLEX Z-GUARD PASTE 113GM TUBE (FROM STOREROOM PRODUCT) TOP SCH ×3 (09:00→21:54)
[2021-10-27] MEDS: SODIUM CHLORIDE 1 GM TAB PO SCH ×3 (09:29→17:26)
[2021-10-27] MEDS: ASPIRIN 81MG ENTERIC TABLET PO SCH (09:29)
[2021-10-27] MEDS: PANTOPRAZOLE 40MG TAB (PROTONIX) PO SCH (09:29)
[2021-10-27] MEDS: DOCUSATE SODIUM 100MG CAPSULE PO SCH ×2 (09:29→21:52)
[2021-10-27] MEDS: SERTRALINE HCL 25 MG TABLET PO SCH (09:29)
[2021-10-27] MEDS: rOPINIRole 0.25 MG TAB(REQUIP) PO SCH ×2 (09:30→21:51)
[2021-10-27] MEDS: guaiFENesin 200 MG TAB PO SCH ×3 (09:30→21:52)
[2021-10-27] MEDS: PROPRANOLOL 10 MG TAB PO SCH ×3 (09:30→21:52)
[2021-10-27] MEDS: TAMSULOSIN 0.4 MG CAP PO SCH (09:30)
[2021-10-27] MEDS: LACTOBACILLUS ACIDOPHILUS CAP (BACID) PO SCH ×4 (09:30→21:52)
[2021-10-27] MEDS: FLUTICASONE PROP 0.05% NASAL SPRAY 16 GM (FLONASE) NARES SCH ×2 (09:31→21:53)
[2021-10-27] MEDS: CEFDINIR 300 MG CAP (OMNICEF) PO SCH ×2 (09:31→21:52)
[2021-10-27] MEDS: lisinopriL 5 MG TAB PO SCH ×2 (09:31→21:51)
[2021-10-27] MEDS: FINASTERIDE 5MG TAB PO SCH (09:31)
[2021-10-27] MEDS: EZETIMIBE 10MG TABLET (ZETIA) PO SCH (09:31)
[2021-10-27] MEDS: POLYVINYL ALCOHOL OPHTH SOLN 15 ML(LIQUITEARS) OU SCH ×4 (09:32→21:53)
[2021-10-27 14:00] VITALS: BP 134/63
[2021-10-27] MEDS: GABAPENTIN 100 MG CAP PO SCH ×2 (16:54→21:51)
[2021-10-27 19:33] VITALS: BP_SYST 134; BP_SYST 140; BP_DIAS 65
[2021-10-27] MEDS: MAGNESIUM OXIDE 400MG TAB (MAG-OX) PO SCH (21:51)
[2021-10-27] MEDS: SENNA 8.6 MG TAB (SENOKOT) PO SCH (21:51)
[2021-10-27] MEDS: ATORVASTATIN 20 MG TAB PO SCH (21:51)
[2021-10-28 06:00] VITALS: BP 140/64
[2021-10-28] MEDS: ALBUTEROL 90 MCG/ACT 8GM HFA INHALER INH SCH ×3 (07:17→19:51)
[2021-10-28] MEDS: TIOTROPIUM INHALER/CAPSULE (SPIRIVA) INH SCH (07:17)
[2021-10-28] MEDS: LACTOBACILLUS ACIDOPHILUS CAP (BACID) PO SCH ×4 (09:30→22:12)
[2021-10-28] MEDS: SODIUM CHLORIDE 1 GM TAB PO SCH ×3 (09:30→17:09)
[2021-10-28] MEDS: rOPINIRole 0.25 MG TAB(REQUIP) PO SCH ×2 (09:30→22:11)
[2021-10-28] MEDS: PANTOPRAZOLE 40MG TAB (PROTONIX) PO SCH (09:31)
[2021-10-28] MEDS: SERTRALINE HCL 25 MG TABLET PO SCH (09:31)
[2021-10-28] MEDS: CEFDINIR 300 MG CAP (OMNICEF) PO SCH ×2 (09:31→22:14)
[2021-10-28] MEDS: guaiFENesin 200 MG TAB PO SCH ×3 (09:31→21:00)
[2021-10-28] MEDS: GABAPENTIN 100 MG CAP PO SCH ×3 (09:31→22:11)
[2021-10-28] MEDS: DOCUSATE SODIUM 100MG CAPSULE PO SCH ×2 (09:31→21:00)
[2021-10-28] MEDS: EZETIMIBE 10MG TABLET (ZETIA) PO SCH (09:31)
[2021-10-28] MEDS: FINASTERIDE 5MG TAB PO SCH (09:31)
[2021-10-28] MEDS: TAMSULOSIN 0.4 MG CAP PO SCH (09:31)
[2021-10-28] MEDS: ACETAMINOPHEN 500 MG TAB PO SCH ×3 (09:32→22:12)
[2021-10-28] MEDS: PROPRANOLOL 10 MG TAB PO SCH ×3 (09:32→22:13)
[2021-10-28] MEDS: lisinopriL 5 MG TAB PO SCH ×2 (09:32→21:00)
[2021-10-28] MEDS: POLYVINYL ALCOHOL OPHTH SOLN 15 ML(LIQUITEARS) OU SCH ×4 (09:43→21:00)
[2021-10-28] MEDS: FLUTICASONE PROP 0.05% NASAL SPRAY 16 GM (FLONASE) NARES SCH ×2 (09:43→22:14)
[2021-10-28] MEDS: SALIVA SUBSTITUTE(MOUTHKOTE) BTL MT SCH ×4 (09:43→21:00)
[2021-10-28] MEDS: ANALGESIC BALM CRM 3OZ TOP SCH ×3 (09:44→21:00)
[2021-10-28] MEDS: REMEDY PHYTOPLEX Z-GUARD PASTE 113GM TUBE (FROM STOREROOM PRODUCT) TOP SCH ×3 (09:44→21:00)
[2021-10-28 14:00] VITALS: BP 138/66
[2021-10-28 20:00] VITALS: BP 133/61
[2021-10-28] MEDS: SENNA 8.6 MG TAB (SENOKOT) PO SCH (22:11)
[2021-10-28] MEDS: MAGNESIUM OXIDE 400MG TAB (MAG-OX) PO SCH (22:12)
[2021-10-28] MEDS: ATORVASTATIN 20 MG TAB PO SCH (22:12)
[2021-10-29 06:00] VITALS: BP 100/56
[2021-10-29 07:08] LABS: BASO % 0.8 % (0.0-1.0); EOS # 0.1 10^3/uL (0.0-0.5); EOS % 3.6 % (0.0-3.0); HEMATOCRIT 34.5 % (42.0-52.0); LYMPH # 1.1 10^3/uL (1.5-5.0); LYMPH % 28.2 % (24.0-44.0); MEAN CORPUSCULAR HEMOGLOBIN 33.5 pg (27.0-33.0); MEAN CORPUSCULAR HGB CONC 31.9 g/dl (32.0-36.5); MEAN CORPUSCULAR VOLUME 105.2 fl (80.0-96.0); MONO # 0.4 10^3/uL (0.0-0.8); MONO % 9.9 % (2.0-8.0); NEUTROPHILS # 2.3 10^3/uL (1.5-8.5); NEUTROPHILS % 57.2 % (36.0-66.0); PLATELET COUNT, AUTOMATED 211 10^3/uL (150-450); RED BLOOD COUNT 3.28 10^6/uL (4.30-6.10); WHITE BLOOD COUNT 3.9 10^3/uL (4.0-10.0)
[2021-10-29 07:31] LABS: BLOOD UREA NITROGEN 13 MG/DL (7-18); CALCIUM LEVEL 8.8 MG/DL (8.8-10.2); CARBON DIOXIDE LEVEL 29 MEQ/L (21-32); CHLORIDE LEVEL 106 MEQ/L (98-107); CREATININE FOR GFR 1.19 MG/DL (0.70-1.30); GLOMERULAR FILTRATION RATE > 60.0 (>42); GLUCOSE, FASTING 102 MG/DL (70-100); POTASSIUM SERUM 4.3 MEQ/L (3.5-5.1); SODIUM LEVEL 138 MEQ/L (136-145)
[2021-10-29] MEDS: TIOTROPIUM INHALER/CAPSULE (SPIRIVA) INH SCH (08:00)
[2021-10-29] MEDS: ALBUTEROL 90 MCG/ACT 8GM HFA INHALER INH SCH ×3 (08:00→20:30)
[2021-10-29] MEDS: guaiFENesin 200 MG TAB PO SCH ×3 (09:21→21:00)
[2021-10-29] MEDS: FINASTERIDE 5MG TAB PO SCH (09:21)
[2021-10-29] MEDS: SODIUM CHLORIDE 1 GM TAB PO SCH ×3 (09:21→18:06)
[2021-10-29] MEDS: DOCUSATE SODIUM 100MG CAPSULE PO SCH ×2 (09:22→21:12)
[2021-10-29] MEDS: rOPINIRole 0.25 MG TAB(REQUIP) PO SCH ×2 (09:22→21:11)
[2021-10-29] MEDS: EZETIMIBE 10MG TABLET (ZETIA) PO SCH (09:22)
[2021-10-29] MEDS: TAMSULOSIN 0.4 MG CAP PO SCH (09:22)
[2021-10-29] MEDS: SERTRALINE HCL 25 MG TABLET PO SCH (09:22)
[2021-10-29] MEDS: PANTOPRAZOLE 40MG TAB (PROTONIX) PO SCH (09:22)
[2021-10-29] MEDS: GABAPENTIN 100 MG CAP PO SCH ×3 (09:22→21:12)
[2021-10-29] MEDS: LACTOBACILLUS ACIDOPHILUS CAP (BACID) PO SCH ×4 (09:22→21:12)
[2021-10-29] MEDS: SALIVA SUBSTITUTE(MOUTHKOTE) BTL MT SCH ×4 (09:23→21:00)
[2021-10-29] MEDS: ACETAMINOPHEN 500 MG TAB PO SCH ×3 (09:23→21:11)
[2021-10-29] MEDS: FLUTICASONE PROP 0.05% NASAL SPRAY 16 GM (FLONASE) NARES SCH ×2 (09:24→21:14)
[2021-10-29] MEDS: REMEDY PHYTOPLEX Z-GUARD PASTE 113GM TUBE (FROM STOREROOM PRODUCT) TOP SCH ×3 (09:24→21:15)
[2021-10-29] MEDS: POLYVINYL ALCOHOL OPHTH SOLN 15 ML(LIQUITEARS) OU SCH ×4 (09:24→21:14)
[2021-10-29] MEDS: ANALGESIC BALM CRM 3OZ TOP SCH ×3 (09:24→21:00)
[2021-10-29] MEDS: lisinopriL 5 MG TAB PO SCH ×2 (09:28→21:00)
[2021-10-29] MEDS: PROPRANOLOL 10 MG TAB PO SCH ×3 (09:28→21:00)
[2021-10-29 14:00] VITALS: BP 116/69
[2021-10-29 20:00] VITALS: BP 102/45
[2021-10-29] MEDS: SENNA 8.6 MG TAB (SENOKOT) PO SCH (21:11)
[2021-10-29] MEDS: ATORVASTATIN 20 MG TAB PO SCH (21:12)
[2021-10-29] MEDS: MAGNESIUM OXIDE 400MG TAB (MAG-OX) PO SCH (21:12)
[2021-10-30 06:00] VITALS: BP 126/60
[2021-10-30] MEDS: TIOTROPIUM INHALER/CAPSULE (SPIRIVA) INH SCH (07:09)
[2021-10-30] MEDS: ALBUTEROL 90 MCG/ACT 8GM HFA INHALER INH SCH ×3 (07:09→20:00)
[2021-10-30] MEDS: EZETIMIBE 10MG TABLET (ZETIA) PO SCH (08:58)
[2021-10-30] MEDS: SODIUM CHLORIDE 1 GM TAB PO SCH ×3 (08:58→17:21)
[2021-10-30] MEDS: DOCUSATE SODIUM 100MG CAPSULE PO SCH ×2 (08:58→21:15)
[2021-10-30] MEDS: PANTOPRAZOLE 40MG TAB (PROTONIX) PO SCH (08:58)
[2021-10-30] MEDS: FINASTERIDE 5MG TAB PO SCH (08:58)
[2021-10-30] MEDS: LACTOBACILLUS ACIDOPHILUS CAP (BACID) PO SCH ×4 (08:58→21:15)
[2021-10-30] MEDS: TAMSULOSIN 0.4 MG CAP PO SCH (08:58)
[2021-10-30] MEDS: ACETAMINOPHEN 500 MG TAB PO SCH ×3 (08:59→21:16)
[2021-10-30] MEDS: POLYVINYL ALCOHOL OPHTH SOLN 15 ML(LIQUITEARS) OU SCH ×4 (08:59→21:17)
[2021-10-30] MEDS: guaiFENesin 200 MG TAB PO SCH (08:59)
[2021-10-30] MEDS: rOPINIRole 0.25 MG TAB(REQUIP) PO SCH ×2 (08:59→21:16)
[2021-10-30] MEDS: GABAPENTIN 100 MG CAP PO SCH ×3 (08:59→21:15)
[2021-10-30] MEDS: FLUTICASONE PROP 0.05% NASAL SPRAY 16 GM (FLONASE) NARES SCH ×2 (08:59→21:16)
[2021-10-30] MEDS: SERTRALINE HCL 25 MG TABLET PO SCH (08:59)
[2021-10-30] MEDS: SALIVA SUBSTITUTE(MOUTHKOTE) BTL MT SCH ×4 (09:00→21:00)
[2021-10-30] MEDS: PROPRANOLOL 10 MG TAB PO SCH (09:00)
[2021-10-30] MEDS: lisinopriL 5 MG TAB PO SCH ×2 (09:00→21:15)
[2021-10-30] MEDS ORDERED: FLUTICASONE PROP 0.05% NASAL SPRAY 16 GM (FLONASE) NARES SCH (09:00)
[2021-10-30] MEDS: REMEDY PHYTOPLEX Z-GUARD PASTE 113GM TUBE (FROM STOREROOM PRODUCT) TOP SCH ×3 (09:00→21:00)
[2021-10-30] MEDS: ANALGESIC BALM CRM 3OZ TOP SCH ×3 (09:00→21:00)
[2021-10-30 14:00] VITALS: BP 122/56
[2021-10-30] MEDS: LORATADINE 10 MG TAB PO SCH (14:20)
[2021-10-30] MEDS: SODIUM CHLORIDE NASAL 0.65% SPRAY BTL (OCEAN) SCH ×2 (17:19→21:00)
[2021-10-30 20:00] VITALS: BP 141/61
[2021-10-30] MEDS: ATORVASTATIN 20 MG TAB PO SCH (21:15)
[2021-10-30] MEDS: MAGNESIUM OXIDE 400MG TAB (MAG-OX) PO SCH (21:15)
[2021-10-30] MEDS: SENNA 8.6 MG TAB (SENOKOT) PO SCH (21:16)
[2021-10-31 06:00] VITALS: BP 119/75
[2021-10-31] MEDS: ALBUTEROL 90 MCG/ACT 8GM HFA INHALER INH SCH ×3 (07:29→20:00)
[2021-10-31] MEDS: TIOTROPIUM INHALER/CAPSULE (SPIRIVA) INH SCH (07:29)
[2021-10-31 08:39] LABS: BASO % 0.4 % (0.0-1.0); EOS # 0.1 10^3/uL (0.0-0.5); EOS % 2.4 % (0.0-3.0); HEMATOCRIT 35.8 % (42.0-52.0); HEMOGLOBIN 11.2 g/dl (13.5-17.5); LYMPH # 1.2 10^3/uL (1.5-5.0); LYMPH % 24.9 % (24.0-44.0); MEAN CORPUSCULAR HEMOGLOBIN 33.6 pg (27.0-33.0); MEAN CORPUSCULAR HGB CONC 31.3 g/dl (32.0-36.5); MEAN CORPUSCULAR VOLUME 107.5 fl (80.0-96.0); MONO # 0.4 10^3/uL (0.0-0.8); MONO % 7.7 % (2.0-8.0); NEUTROPHILS # 3.2 10^3/uL (1.5-8.5); NEUTROPHILS % 64.2 % (36.0-66.0); PLATELET COUNT, AUTOMATED 212 10^3/uL (150-450); RED BLOOD COUNT 3.33 10^6/uL (4.30-6.10); WHITE BLOOD COUNT 4.9 10^3/uL (4.0-10.0)
[2021-10-31 09:22] LABS: BLOOD UREA NITROGEN 12 MG/DL (7-18); CALCIUM LEVEL 8.9 MG/DL (8.8-10.2); CARBON DIOXIDE LEVEL 28 MEQ/L (21-32); CHLORIDE LEVEL 105 MEQ/L (98-107); CREATININE FOR GFR 1.23 MG/DL (0.70-1.30); GLOMERULAR FILTRATION RATE > 60.0 (>42); GLUCOSE, FASTING 144 MG/DL (70-100); POTASSIUM SERUM 3.9 MEQ/L (3.5-5.1); SODIUM LEVEL 139 MEQ/L (136-145)
[2021-10-31] MEDS: SODIUM CHLORIDE 1 GM TAB PO SCH ×3 (11:16→16:44)
[2021-10-31] MEDS: TAMSULOSIN 0.4 MG CAP PO SCH (11:16)
[2021-10-31] MEDS: DOCUSATE SODIUM 100MG CAPSULE PO SCH ×2 (11:17→20:10)
[2021-10-31] MEDS: EZETIMIBE 10MG TABLET (ZETIA) PO SCH (11:17)
[2021-10-31] MEDS: LORATADINE 10 MG TAB PO SCH (11:17)
[2021-10-31] MEDS: FINASTERIDE 5MG TAB PO SCH (11:17)
[2021-10-31] MEDS: GABAPENTIN 100 MG CAP PO SCH ×3 (11:17→20:11)
[2021-10-31] MEDS: PANTOPRAZOLE 40MG TAB (PROTONIX) PO SCH (11:17)
[2021-10-31] MEDS: rOPINIRole 0.25 MG TAB(REQUIP) PO SCH ×2 (11:17→20:11)
[2021-10-31] MEDS: SERTRALINE HCL 25 MG TABLET PO SCH (11:17)
[2021-10-31] MEDS: LACTOBACILLUS ACIDOPHILUS CAP (BACID) PO SCH ×4 (11:17→20:10)
[2021-10-31] MEDS: lisinopriL 5 MG TAB PO SCH ×2 (11:18→20:22)
[2021-10-31] MEDS: ACETAMINOPHEN 500 MG TAB PO SCH ×3 (11:18→20:11)
[2021-10-31] MEDS: SALIVA SUBSTITUTE(MOUTHKOTE) BTL MT SCH ×4 (11:18→20:12)
[2021-10-31] MEDS: ANALGESIC BALM CRM 3OZ TOP SCH ×3 (11:19→20:23)
[2021-10-31] MEDS: SODIUM CHLORIDE NASAL 0.65% SPRAY BTL (OCEAN) SCH ×3 (11:19→20:12)
[2021-10-31] MEDS: FLUTICASONE PROP 0.05% NASAL SPRAY 16 GM (FLONASE) NARES SCH ×2 (11:19→20:12)
[2021-10-31] MEDS: POLYVINYL ALCOHOL OPHTH SOLN 15 ML(LIQUITEARS) OU SCH ×4 (11:20→20:11)
[2021-10-31] MEDS: REMEDY PHYTOPLEX Z-GUARD PASTE 113GM TUBE (FROM STOREROOM PRODUCT) TOP SCH ×3 (11:21→20:23)
[2021-10-31 14:00] VITALS: BP 108/52
[2021-10-31 19:40] VITALS: BP 117/59
[2021-10-31] MEDS: MAGNESIUM OXIDE 400MG TAB (MAG-OX) PO SCH (20:10)
[2021-10-31] MEDS: SENNA 8.6 MG TAB (SENOKOT) PO SCH (20:10)
[2021-10-31] MEDS: ATORVASTATIN 20 MG TAB PO SCH (20:10)
[2021-11-01 05:50] VITALS: BP 134/70
[2021-11-01] MEDS: TIOTROPIUM INHALER/CAPSULE (SPIRIVA) INH SCH (07:21)
[2021-11-01] MEDS: ALBUTEROL 90 MCG/ACT 8GM HFA INHALER INH SCH ×3 (07:21→19:54)
[2021-11-01] MEDS: SALIVA SUBSTITUTE(MOUTHKOTE) BTL MT SCH ×4 (09:00→20:38)
[2021-11-01] MEDS: SODIUM CHLORIDE NASAL 0.65% SPRAY BTL (OCEAN) SCH ×3 (09:00→20:35)
[2021-11-01] MEDS: REMEDY PHYTOPLEX Z-GUARD PASTE 113GM TUBE (FROM STOREROOM PRODUCT) TOP SCH ×3 (09:00→20:40)
[2021-11-01] MEDS: TAMSULOSIN 0.4 MG CAP PO SCH (09:16)
[2021-11-01] MEDS: ACETAMINOPHEN 500 MG TAB PO SCH ×3 (09:16→20:34)
[2021-11-01] MEDS: SERTRALINE HCL 25 MG TABLET PO SCH (09:16)
[2021-11-01] MEDS: DOCUSATE SODIUM 100MG CAPSULE PO SCH ×2 (09:16→20:33)
[2021-11-01] MEDS: FINASTERIDE 5MG TAB PO SCH (09:16)
[2021-11-01] MEDS: rOPINIRole 0.25 MG TAB(REQUIP) PO SCH ×2 (09:16→20:32)
[2021-11-01] MEDS: GABAPENTIN 100 MG CAP PO SCH ×3 (09:16→20:33)
[2021-11-01] MEDS: SODIUM CHLORIDE 1 GM TAB PO SCH ×3 (09:17→17:24)
[2021-11-01] MEDS: LACTOBACILLUS ACIDOPHILUS CAP (BACID) PO SCH ×4 (09:17→20:32)
[2021-11-01] MEDS: PANTOPRAZOLE 40MG TAB (PROTONIX) PO SCH (09:17)
[2021-11-01] MEDS: LORATADINE 10 MG TAB PO SCH (09:17)
[2021-11-01] MEDS: FLUTICASONE PROP 0.05% NASAL SPRAY 16 GM (FLONASE) NARES SCH ×2 (09:18→20:39)
[2021-11-01] MEDS: lisinopriL 5 MG TAB PO SCH ×2 (09:18→20:33)
[2021-11-01] MEDS: POLYVINYL ALCOHOL OPHTH SOLN 15 ML(LIQUITEARS) OU SCH ×4 (09:19→20:39)
[2021-11-01] MEDS: ANALGESIC BALM CRM 3OZ TOP SCH ×3 (09:19→20:39)
[2021-11-01] MEDS: EZETIMIBE 10MG TABLET (ZETIA) PO SCH (09:21)
[2021-11-01 14:00] VITALS: BP 101/59
[2021-11-01 19:49] VITALS: BP 142/67
[2021-11-01] MEDS: ATORVASTATIN 20 MG TAB PO SCH (20:33)
[2021-11-01] MEDS: SENNA 8.6 MG TAB (SENOKOT) PO SCH (20:33)
[2021-11-01] MEDS: MAGNESIUM OXIDE 400MG TAB (MAG-OX) PO SCH (20:33)
[2021-11-02 05:48] VITALS: BP 118/60
[2021-11-02] MEDS: ALBUTEROL 90 MCG/ACT 8GM HFA INHALER INH SCH ×3 (07:22→20:16)
[2021-11-02] MEDS: TIOTROPIUM INHALER/CAPSULE (SPIRIVA) INH SCH (07:22)
[2021-11-02] MEDS: SODIUM CHLORIDE 1 GM TAB PO SCH ×3 (07:57→17:49)
[2021-11-02] MEDS: SALIVA SUBSTITUTE(MOUTHKOTE) BTL MT SCH ×4 (07:57→21:31)
[2021-11-02] MEDS: LACTOBACILLUS ACIDOPHILUS CAP (BACID) PO SCH ×4 (07:57→21:29)
[2021-11-02] MEDS: DOCUSATE SODIUM 100MG CAPSULE PO SCH ×2 (07:58→21:00)
[2021-11-02] MEDS: TAMSULOSIN 0.4 MG CAP PO SCH (07:58)
[2021-11-02] MEDS: GABAPENTIN 100 MG CAP PO SCH ×3 (07:58→21:28)
[2021-11-02] MEDS: LORATADINE 10 MG TAB PO SCH (07:58)
[2021-11-02] MEDS: PANTOPRAZOLE 40MG TAB (PROTONIX) PO SCH (07:59)
[2021-11-02] MEDS: FINASTERIDE 5MG TAB PO SCH (07:59)
[2021-11-02] MEDS: lisinopriL 5 MG TAB PO SCH ×2 (07:59→21:29)
[2021-11-02] MEDS: rOPINIRole 0.25 MG TAB(REQUIP) PO SCH ×2 (07:59→21:28)
[2021-11-02] MEDS: SERTRALINE HCL 25 MG TABLET PO SCH (08:00)
[2021-11-02] MEDS: SODIUM CHLORIDE NASAL 0.65% SPRAY BTL (OCEAN) SCH ×3 (08:00→21:00)
[2021-11-02] MEDS: FLUTICASONE PROP 0.05% NASAL SPRAY 16 GM (FLONASE) NARES SCH ×2 (08:00→21:00)
[2021-11-02] MEDS: EZETIMIBE 10MG TABLET (ZETIA) PO SCH (08:00)
[2021-11-02] MEDS: ACETAMINOPHEN 500 MG TAB PO SCH ×3 (08:00→21:30)
[2021-11-02] MEDS: POLYVINYL ALCOHOL OPHTH SOLN 15 ML(LIQUITEARS) OU SCH ×4 (08:01→21:00)
[2021-11-02] MEDS: ANALGESIC BALM CRM 3OZ TOP SCH ×3 (08:01→21:00)
[2021-11-02] MEDS: REMEDY PHYTOPLEX Z-GUARD PASTE 113GM TUBE (FROM STOREROOM PRODUCT) TOP SCH ×3 (08:01→21:31)
[2021-11-02 14:00] VITALS: BP 137/64
[2021-11-02 19:11] VITALS: BP 125/80
[2021-11-02] MEDS: SENNA 8.6 MG TAB (SENOKOT) PO SCH (21:00)
[2021-11-02] MEDS: MAGNESIUM OXIDE 400MG TAB (MAG-OX) PO SCH (21:28)
[2021-11-02] MEDS: ATORVASTATIN 20 MG TAB PO SCH (21:29)
[2021-11-03 06:00] VITALS: BP 144/63
[2021-11-03 07:18] LABS: BASO % 0.5 % (0.0-1.0); EOS # 0.1 10^3/uL (0.0-0.5); EOS % 2.6 % (0.0-3.0); HEMATOCRIT 38.7 % (42.0-52.0); HEMOGLOBIN 11.9 g/dl (13.5-17.5); LYMPH # 1.4 10^3/uL (1.5-5.0); LYMPH % 32.2 % (24.0-44.0); MEAN CORPUSCULAR HEMOGLOBIN 32.7 pg (27.0-33.0); MEAN CORPUSCULAR HGB CONC 30.7 g/dl (32.0-36.5); MEAN CORPUSCULAR VOLUME 106.3 fl (80.0-96.0); MONO # 0.3 10^3/uL (0.0-0.8); MONO % 7.8 % (2.0-8.0); NEUTROPHILS # 2.4 10^3/uL (1.5-8.5); NEUTROPHILS % 56.2 % (36.0-66.0); PLATELET COUNT, AUTOMATED 224 10^3/uL (150-450); RED BLOOD COUNT 3.64 10^6/uL (4.30-6.10); WHITE BLOOD COUNT 4.2 10^3/uL (4.0-10.0)
[2021-11-03 07:56] LABS: BLOOD UREA NITROGEN 12 MG/DL (7-18); CARBON DIOXIDE LEVEL 27 MEQ/L (21-32); CHLORIDE LEVEL 102 MEQ/L (98-107); CREATININE FOR GFR 1.09 MG/DL (0.70-1.30); GLOMERULAR FILTRATION RATE > 60.0 (>42); GLUCOSE, FASTING 112 MG/DL (70-100); POTASSIUM SERUM 3.7 MEQ/L (3.5-5.1); SODIUM LEVEL 134 MEQ/L (136-145)
[2021-11-03] MEDS: SALIVA SUBSTITUTE(MOUTHKOTE) BTL MT SCH ×4 (09:00→20:37)
[2021-11-03] MEDS: rOPINIRole 0.25 MG TAB(REQUIP) PO SCH ×2 (09:32→20:37)
[2021-11-03] MEDS: DOCUSATE SODIUM 100MG CAPSULE PO SCH ×2 (09:32→20:41)
[2021-11-03] MEDS: SERTRALINE HCL 25 MG TABLET PO SCH (09:33)
[2021-11-03] MEDS: TAMSULOSIN 0.4 MG CAP PO SCH (09:33)
[2021-11-03] MEDS: PANTOPRAZOLE 40MG TAB (PROTONIX) PO SCH (09:33)
[2021-11-03] MEDS: FINASTERIDE 5MG TAB PO SCH (09:33)
[2021-11-03] MEDS: EZETIMIBE 10MG TABLET (ZETIA) PO SCH (09:33)
[2021-11-03] MEDS: LACTOBACILLUS ACIDOPHILUS CAP (BACID) PO SCH ×4 (09:33→20:36)
[2021-11-03] MEDS: GABAPENTIN 100 MG CAP PO SCH ×3 (09:33→20:36)
[2021-11-03] MEDS: LORATADINE 10 MG TAB PO SCH (09:33)
[2021-11-03] MEDS: lisinopriL 5 MG TAB PO SCH ×2 (09:34→20:36)
[2021-11-03] MEDS: ACETAMINOPHEN 500 MG TAB PO SCH ×3 (09:34→20:37)
[2021-11-03] MEDS: SODIUM CHLORIDE NASAL 0.65% SPRAY BTL (OCEAN) SCH ×3 (09:35→20:38)
[2021-11-03] MEDS: ANALGESIC BALM CRM 3OZ TOP SCH ×3 (09:35→20:38)
[2021-11-03] MEDS: POLYVINYL ALCOHOL OPHTH SOLN 15 ML(LIQUITEARS) OU SCH ×4 (09:35→20:38)
[2021-11-03] MEDS: FLUTICASONE PROP 0.05% NASAL SPRAY 16 GM (FLONASE) NARES SCH ×2 (09:35→20:38)
[2021-11-03] MEDS: REMEDY PHYTOPLEX Z-GUARD PASTE 113GM TUBE (FROM STOREROOM PRODUCT) TOP SCH ×3 (09:36→20:39)
[2021-11-03] MEDS: ALBUTEROL 90 MCG/ACT 8GM HFA INHALER INH SCH ×3 (12:58→20:00)
[2021-11-03] MEDS: TIOTROPIUM INHALER/CAPSULE (SPIRIVA) INH SCH (12:58)
[2021-11-03 14:00] VITALS: BP 117/63
[2021-11-03 20:00] VITALS: BP 141/61
[2021-11-03] MEDS: MAGNESIUM OXIDE 400MG TAB (MAG-OX) PO SCH (20:36)
[2021-11-03] MEDS: ATORVASTATIN 20 MG TAB PO SCH (20:37)
[2021-11-03] MEDS: SENNA 8.6 MG TAB (SENOKOT) PO SCH (20:38)
[2021-11-04 06:00] VITALS: BP 140/72
[2021-11-04] MEDS: TIOTROPIUM INHALER/CAPSULE (SPIRIVA) INH SCH (07:32)
[2021-11-04] MEDS: ALBUTEROL 90 MCG/ACT 8GM HFA INHALER INH SCH ×3 (07:32→20:46)
[2021-11-04] MEDS: DOCUSATE SODIUM 100MG CAPSULE PO SCH ×2 (08:35→21:00)
[2021-11-04] MEDS: LACTOBACILLUS ACIDOPHILUS CAP (BACID) PO SCH ×4 (08:35→20:59)
[2021-11-04] MEDS: lisinopriL 5 MG TAB PO SCH ×2 (08:35→21:00)
[2021-11-04] MEDS: PANTOPRAZOLE 40MG TAB (PROTONIX) PO SCH (08:35)
[2021-11-04] MEDS: ACETAMINOPHEN 500 MG TAB PO SCH ×3 (08:35→21:00)
[2021-11-04] MEDS: LORATADINE 10 MG TAB PO SCH (08:35)
[2021-11-04] MEDS: EZETIMIBE 10MG TABLET (ZETIA) PO SCH (08:36)
[2021-11-04] MEDS: FINASTERIDE 5MG TAB PO SCH (08:36)
[2021-11-04] MEDS: GABAPENTIN 100 MG CAP PO SCH ×3 (08:36→20:59)
[2021-11-04] MEDS: ANALGESIC BALM CRM 3OZ TOP SCH ×3 (08:36→21:00)
[2021-11-04] MEDS: SERTRALINE HCL 25 MG TABLET PO SCH (08:36)
[2021-11-04] MEDS: TAMSULOSIN 0.4 MG CAP PO SCH (08:36)
[2021-11-04] MEDS: rOPINIRole 0.25 MG TAB(REQUIP) PO SCH ×2 (08:36→20:59)
[2021-11-04] MEDS: POLYVINYL ALCOHOL OPHTH SOLN 15 ML(LIQUITEARS) OU SCH ×4 (08:37→21:00)
[2021-11-04] MEDS: FLUTICASONE PROP 0.05% NASAL SPRAY 16 GM (FLONASE) NARES SCH ×2 (08:37→21:00)
[2021-11-04] MEDS: SALIVA SUBSTITUTE(MOUTHKOTE) BTL MT SCH ×4 (08:37→21:00)
[2021-11-04] MEDS: SODIUM CHLORIDE NASAL 0.65% SPRAY BTL (OCEAN) SCH ×3 (08:37→21:00)
[2021-11-04] MEDS: REMEDY PHYTOPLEX Z-GUARD PASTE 113GM TUBE (FROM STOREROOM PRODUCT) TOP SCH ×3 (08:40→21:00)
[2021-11-04 14:00] VITALS: BP 142/78
[2021-11-04 20:00] VITALS: BP 128/66
[2021-11-04] MEDS: ATORVASTATIN 20 MG TAB PO SCH (21:00)
[2021-11-04] MEDS: MAGNESIUM OXIDE 400MG TAB (MAG-OX) PO SCH (21:00)
[2021-11-04] MEDS: SENNA 8.6 MG TAB (SENOKOT) PO SCH (21:00)
[2021-11-05 06:00] VITALS: BP 127/59
[2021-11-05] MEDS: DOCUSATE SODIUM 100MG CAPSULE PO SCH (08:34)
[2021-11-05] MEDS: GABAPENTIN 100 MG CAP PO SCH (08:34)
[2021-11-05] MEDS: SERTRALINE HCL 25 MG TABLET PO SCH (08:34)
[2021-11-05] MEDS: rOPINIRole 0.25 MG TAB(REQUIP) PO SCH (08:34)
[2021-11-05] MEDS: LACTOBACILLUS ACIDOPHILUS CAP (BACID) PO SCH ×2 (08:34→11:44)
[2021-11-05] MEDS: PANTOPRAZOLE 40MG TAB (PROTONIX) PO SCH (08:34)
[2021-11-05 08:35] VITALS: BP 127/59
[2021-11-05] MEDS: FINASTERIDE 5MG TAB PO SCH (08:35)
[2021-11-05] MEDS: lisinopriL 5 MG TAB PO SCH (08:35)
[2021-11-05] MEDS: TAMSULOSIN 0.4 MG CAP PO SCH (08:35)
[2021-11-05] MEDS: LORATADINE 10 MG TAB PO SCH (08:35)
[2021-11-05] MEDS: ACETAMINOPHEN 500 MG TAB PO SCH (08:35)
[2021-11-05] MEDS: ANALGESIC BALM CRM 3OZ TOP SCH (08:36)
[2021-11-05] MEDS: FLUTICASONE PROP 0.05% NASAL SPRAY 16 GM (FLONASE) NARES SCH (08:36)
[2021-11-05] MEDS: EZETIMIBE 10MG TABLET (ZETIA) PO SCH (08:36)
[2021-11-05] MEDS: POLYVINYL ALCOHOL OPHTH SOLN 15 ML(LIQUITEARS) OU SCH ×2 (08:36→11:44)
[2021-11-05] MEDS: REMEDY PHYTOPLEX Z-GUARD PASTE 113GM TUBE (FROM STOREROOM PRODUCT) TOP SCH (08:37)
[2021-11-05] MEDS: SALIVA SUBSTITUTE(MOUTHKOTE) BTL MT SCH ×2 (08:37→11:44)
[2021-11-05] MEDS: SODIUM CHLORIDE NASAL 0.65% SPRAY BTL (OCEAN) SCH (08:37)
[2021-11-05] MEDS: ALBUTEROL 90 MCG/ACT 8GM HFA INHALER INH SCH (09:03)
[2021-11-05] MEDS: TIOTROPIUM INHALER/CAPSULE (SPIRIVA) INH SCH (09:04)
[2021-11-05] MEDS ORDERED: ROPI0.253 PO (10:33)
[2021-11-05] MEDS ORDERED: EZET10TA21 PO (10:33)
[2021-11-05] MEDS ORDERED: GABA-1171 PO (10:33)
[2021-11-05] MEDS ORDERED: FLUTISP NARES (10:33)
[2021-11-05] MEDS ORDERED: FLOM0.4C39 PO (10:33)
[2021-11-05] MEDS ORDERED: FINA5TAB2 PO (10:33)
[2021-11-05] MEDS ORDERED: SERT25TA21 PO (10:33)
[2021-11-05] MEDS ORDERED: ATOR40TA75 PO (10:33)
[2021-11-05] MEDS ORDERED: CLAR10TA7 PO (10:33)
[2021-11-05] MEDS ORDERED: LISI5TAB11 PO (10:33)
[2021-11-05] MEDS ORDERED: ASCO500T PO (10:33)
[2021-11-05] MEDS ORDERED: MAGN400T2 PO (10:33)
[2021-11-05] MEDS ORDERED: SODI1TAB6 PO (10:33)
[2021-11-05] MEDS ORDERED: TIOT18INH INH (10:33)
[2021-11-05] MEDS ORDERED: TREL1AER INH (10:33)
[2021-11-05] MEDS ORDERED: GLIM2TAB29 PO (10:33)
== END 2021-11-05 14:30 | disposition home health service (06) | DRG 949 ==
LOC: M PM&R 12:40
PROVIDERS: ADMIT Physical Medicine & Rehabilitation; ATTEND Physical Medicine & Rehabilitation
DX: S06.6X0D Traumatic subarachnoid hemorrhage without loss of consciousness, subsequent encounter (principal); G95.0 Syringomyelia and syringobulbia; E87.1 Hypo-osmolality and hyponatremia; N39.0 Urinary tract infection, site not specified; S06.5X0D Traumatic subdural hemorrhage without loss of consciousness, subsequent encounter; S02.0XXD Fracture of vault of skull, subsequent encounter for fracture with routine healing; I25.10 Atherosclerotic heart disease of native coronary artery without angina pectoris; J44.9 Chronic obstructive pulmonary disease, unspecified; E11.42 Type 2 diabetes mellitus with diabetic polyneuropathy; M54.50 Low back pain, unspecified; Z98.1 Arthrodesis status; G62.89 Other specified polyneuropathies; E66.9 Obesity, unspecified; E11.51 Type 2 diabetes mellitus with diabetic peripheral angiopathy without gangrene; R33.9 Retention of urine, unspecified; Z74.09 Other reduced mobility; Z74.1 Need for assistance with personal care; G89.29 Other chronic pain; M79.661 Pain in right lower leg; M79.662 Pain in left lower leg; R53.1 Weakness; Z90.49 Acquired absence of other specified parts of digestive tract; Z95.1 Presence of aortocoronary bypass graft; H81.10 Benign paroxysmal vertigo, unspecified ear; Z79.82 Long term (current) use of aspirin; Z79.4 Long term (current) use of insulin; Z79.899 Other long term (current) drug therapy; G60.8 Other hereditary and idiopathic neuropathies; I10 Essential (primary) hypertension; Z85.46 Personal history of malignant neoplasm of prostate; Z87.891 Personal history of nicotine dependence

== ENCOUNTER → 2021-11-12 | Outpatient (REF) | payer MEDICARE ==
[~2021-11-12] MED LIST changes: +APAP325T4 PO; +ASCO500T PO; +CLAR10TA7 PO; +DOCU100C16 PO; +ENOX40IN3 SC; +EZET10TA21 PO; +FINA5TAB2 PO; +FLUTISP NARES; +GABA-1171 PO; +HYDR-643 PO; +INSUHUMDS SC; +LIDO5TD TOP; +LISI5TAB11 PO; +MAGN400T2 PO; +METF500T13 PO; +MIRA3350 PO; +OXYB5TAB10 PO; +PANT40TA29 PO; +ROPI0.253 PO; +SERT25TA21 PO; +SODI1TAB6 PO; +TREL1AER INH; +VITA100093 PO; +VITA1TAB35 PO
[2021-11-12 19:16] LABS: BLOOD UREA NITROGEN 16 MG/DL (7-18); CALCIUM LEVEL 8.9 MG/DL (8.8-10.2); CARBON DIOXIDE LEVEL 26 MEQ/L (21-32); CHLORIDE LEVEL 102 MEQ/L (98-107); CREATININE FOR GFR 1.19 MG/DL (0.70-1.30); GLOMERULAR FILTRATION RATE > 60.0 (>42); GLUCOSE, FASTING 96 MG/DL (70-100); POTASSIUM SERUM 4.2 MEQ/L (3.5-5.1); SODIUM LEVEL 133 MEQ/L (136-145)
== END ==
LOC: M SFHCCLAY 11:11
PROVIDERS: ATTEND Family Medicine
DX: E87.1 Hypo-osmolality and hyponatremia (principal)

== ENCOUNTER → 2021-11-27 | Outpatient (REF) | payer MEDICARE ==
[2021-11-27 18:58] LABS: BLOOD UREA NITROGEN 12 MG/DL (7-18); CALCIUM LEVEL 9.1 MG/DL (8.8-10.2); CARBON DIOXIDE LEVEL 26 MEQ/L (21-32); CHLORIDE LEVEL 100 MEQ/L (98-107); GLOMERULAR FILTRATION RATE > 60.0 (>42); GLUCOSE, FASTING 133 MG/DL (70-100); POTASSIUM SERUM 4.2 MEQ/L (3.5-5.1); SODIUM LEVEL 134 MEQ/L (136-145)
== END ==
LOC: M SFHCCLAY 09:53
PROVIDERS: ATTEND Family Medicine
DX: E87.1 Hypo-osmolality and hyponatremia (principal)

== ENCOUNTER → 2021-12-08 | Outpatient (CLI) | payer MEDICARE | LOC: M PLAIMG 13:17 | PROVIDERS: ATTEND Physician Assistant Medical | DX: S06.5X9A Traumatic subdural hemorrhage with loss of consciousness of unspecified duration, initial encounter (principal); S02.19XD Other fracture of base of skull, subsequent encounter for fracture with routine healing ==

== ENCOUNTER → 2021-12-16 | Outpatient (CLI) | payer MEDICARE | LOC: M CLY 11:28 | PROVIDERS: ATTEND Family Medicine | DX: S99.921A Unspecified injury of right foot, initial encounter (principal); M77.31 Calcaneal spur, right foot; M85.871 Other specified disorders of bone density and structure, right ankle and foot; X58.XXXA Exposure to other specified factors, initial encounter; Y92.9 Unspecified place or not applicable; Y93.9 Activity, unspecified; Y99.9 Unspecified external cause status ==

== ENCOUNTER 2022-01-03 20:15 | Emergency (ER) | payer MEDICARE ==
[~2022-01-03] VITALS: Ht 180.3 cm; Wt 94.5 kg
[2022-01-03] MEDS ORDERED: NITR1CAP11 PO (23:16)
[2022-01-03 23:39] VITALS: BP 140/85
== END 2022-01-03 23:40 | disposition home or self-care (01) ==
LOC: M ED 20:15
DX: N39.0 Urinary tract infection, site not specified (principal); R31.9 Hematuria, unspecified; R33.9 Retention of urine, unspecified; C61 Malignant neoplasm of prostate; E11.9 Type 2 diabetes mellitus without complications; Z87.891 Personal history of nicotine dependence; Z95.828 Presence of other vascular implants and grafts

== ENCOUNTER 2022-01-22 15:07 | Inpatient (IN) | payer MEDICARE ==
[~2022-01-22] VITALS: Ht 180.3 cm; Wt 91.4 kg
[~2022-01-22 15:07] MED LIST changes: +NITR1CAP11 PO
[2022-01-22 16:27] LABS: BASO % 0.2 % (0.0-1.0); EOS # 0.1 10^3/uL (0.0-0.5); EOS % 2.3 % (0.0-3.0); HEMATOCRIT 32.5 % (42.0-52.0); HEMOGLOBIN 10.5 g/dl (13.5-17.5); LYMPH # 1.2 10^3/uL (1.5-5.0); MEAN CORPUSCULAR HEMOGLOBIN 33.7 pg (27.0-33.0); MEAN CORPUSCULAR HGB CONC 32.3 g/dl (32.0-36.5); MEAN CORPUSCULAR VOLUME 104.2 fl (80.0-96.0); MONO # 0.6 10^3/uL (0.0-0.8); MONO % 14.5 % (2.0-8.0); NEUTROPHILS # 2.5 10^3/uL (1.5-8.5); NEUTROPHILS % 55.8 % (36.0-66.0); PLATELET COUNT, AUTOMATED 255 10^3/uL (150-450); RED BLOOD COUNT 3.12 10^6/uL (4.30-6.10); WHITE BLOOD COUNT 4.4 10^3/uL (4.0-10.0)
[2022-01-22 16:57] LABS: ALBUMIN 3.1 GM/DL (3.2-5.2); ALT/SGPT 23 U/L (12-78); BILIRUBIN,DIRECT 0.2 MG/DL (0.0-0.2); BILIRUBIN,TOTAL 0.4 MG/DL (0.2-1.0); BLOOD UREA NITROGEN 15 MG/DL (7-18); CALCIUM LEVEL 8.4 MG/DL (8.8-10.2); CARBON DIOXIDE LEVEL 25 MEQ/L (21-32); CHLORIDE LEVEL 103 MEQ/L (98-107); CREATININE FOR GFR 0.96 MG/DL (0.70-1.30); GLOMERULAR FILTRATION RATE > 60.0 (>42); GLUCOSE, FASTING 61 MG/DL (70-100); LIPASE 86 U/L (73-393); MB/CK RELATIVE INDEX 1.99 (< OR =4); SODIUM LEVEL 134 MEQ/L (136-145); TOTAL PROTEIN 6.1 GM/DL (6.4-8.2)
[2022-01-22 16:58] LABS: INR 1.07; PROTHROMBIN TIME 14.1 SECONDS (12.5-14.5)
[2022-01-22 16:59] LABS: PARTIAL THROMBOPLASTIN TIME 35.7 SECONDS (24.8-34.2)
[2022-01-22 18:51] LABS: CK-MB VALUE MASS 6.2 NG/ML (<3.6); MB/CK RELATIVE INDEX 2.01 (< OR =4)
[2022-01-22] MEDS ORDERED: cefTRIAXone SOD 1 GM in D5W MINI-BAG PLUS 50 ML IV ONE (19:00)
[2022-01-22] MEDS ORDERED: NS 1,000 ML IV ONE (19:25)
[2022-01-22] MEDS ORDERED: GLUCAGON INJ 1MG VIAL SC PRN (19:25)
[2022-01-22] MEDS ORDERED: GLUCOSE 4GM CHEW TABLET PO PRN (19:25)
[2022-01-22] MEDS ORDERED: DEXTROSE 50% 50 ML SYRINGE IV PRN (19:25)
[2022-01-22] MEDS: CEFEPIME HCL 1 GM in D5W MINI-BAG PLUS 50 ML IV SCH (20:00)
[2022-01-22 20:07] LABS: FERRITIN 141 NG/ML (26-388); IRON (FE) 36 UG/DL (65-175); TOTAL IRON BINDING CAPACITY 258 UG/DL (250-450)
[2022-01-22 20:17] LABS: FOLATE 6.9 NG/ML (>5.4); VITAMIN B12 LEVEL 939 PG/ML (247-911)
[2022-01-22] MEDS: INSULIN LISPRO (NovoLOG) PER UNIT SC SCH (20:29)
[2022-01-22] MEDS ORDERED: TREL1AER INH (20:58)
[2022-01-22] MEDS ORDERED: LORA-674 PO (20:58)
[2022-01-22] MEDS ORDERED: FINA5TAB2 PO (20:58)
[2022-01-22] MEDS ORDERED: OMEG100011 PO (20:58)
[2022-01-22] MEDS ORDERED: FLOM0.4C39 PO (20:58)
[2022-01-22] MEDS ORDERED: B-12100021 PO (20:58)
[2022-01-22] MEDS ORDERED: SODI1TAB12 PO (20:58)
[2022-01-22] MEDS ORDERED: ALBU2.5V10 INH (20:58)
[2022-01-22] MEDS ORDERED: BACL10TA2 PO (20:58)
[2022-01-22] MEDS ORDERED: ROPI0.5T3 PO (20:58)
[2022-01-22] MEDS ORDERED: C 50TAB PO (20:58)
[2022-01-22] MEDS ORDERED: BUPR300T92 PO (20:58)
[2022-01-22] MEDS ORDERED: EZET10TA21 PO (20:58)
[2022-01-22] MEDS ORDERED: MAGN400T2 PO (20:58)
[2022-01-22] MEDS ORDERED: NYST1POW9 TOP (20:58)
[2022-01-22] MEDS ORDERED: CHOL125C6 PO (20:58)
[2022-01-22] MEDS ORDERED: GABA-1171 PO (20:58)
[2022-01-22] MEDS ORDERED: TURM500T PO (20:58)
[2022-01-22] MEDS ORDERED: GLIM2TAB4 PO (20:58)
[2022-01-22] MEDS ORDERED: OSTE5TAB PO (20:58)
[2022-01-22] MEDS ORDERED: ATOR80TA59 PO (20:58)
[2022-01-22] MEDS: DOCUSATE SODIUM 100MG CAPSULE PO SCH (20:59)
[2022-01-22] MEDS ORDERED: HOME MED LIST COMPLETE! XX SCH (21:00)
[2022-01-22] MEDS ORDERED: ALBUTEROL SULFATE 2.5 MG/0.5 ML INH NEB SOLN INH PRN (22:10)
[2022-01-23] MEDS: ATORVASTATIN 20 MG TAB PO SCH ×2 (00:41→21:17)
[2022-01-23] MEDS: rOPINIRole 0.25 MG TAB(REQUIP) PO SCH ×3 (00:41→21:17)
[2022-01-23] MEDS: GABAPENTIN 100 MG CAP PO SCH ×4 (00:42→21:17)
[2022-01-23 04:50] VITALS: BP 127/62
[2022-01-23 06:14] LABS: HEMATOCRIT 32.3 % (42.0-52.0); HEMOGLOBIN 10.3 g/dl (13.5-17.5); MEAN CORPUSCULAR HGB CONC 31.9 g/dl (32.0-36.5); MEAN CORPUSCULAR VOLUME 103.5 fl (80.0-96.0); PLATELET COUNT, AUTOMATED 269 10^3/uL (150-450); RED BLOOD COUNT 3.12 10^6/uL (4.30-6.10); WHITE BLOOD COUNT 4.3 10^3/uL (4.0-10.0)
[2022-01-23 06:58] LABS: BLOOD UREA NITROGEN 12 MG/DL (7-18); CALCIUM LEVEL 8.5 MG/DL (8.8-10.2); CARBON DIOXIDE LEVEL 27 MEQ/L (21-32); CHLORIDE LEVEL 104 MEQ/L (98-107); CREATININE FOR GFR 0.99 MG/DL (0.70-1.30); GLOMERULAR FILTRATION RATE > 60.0 (>42); GLUCOSE, FASTING 78 MG/DL (70-100); MAGNESIUM LEVEL 2.2 MG/DL (1.8-2.4); POTASSIUM SERUM 4.3 MEQ/L (3.5-5.1); SODIUM LEVEL 135 MEQ/L (136-145)
[2022-01-23] MEDS: INSULIN LISPRO (NovoLOG) PER UNIT SC SCH ×4 (07:30→21:00)
[2022-01-23] MEDS: ADVAIR HFA 115/21MCG INHALER INH SCH ×2 (07:48→19:54)
[2022-01-23] MEDS: TIOTROPIUM INHALER/CAPSULE (SPIRIVA) INH SCH (07:48)
[2022-01-23] MEDS: CEFEPIME HCL 1 GM in D5W MINI-BAG PLUS 50 ML IV SCH ×2 (10:05→21:17)
[2022-01-23] MEDS: EZETIMIBE 10MG TABLET (ZETIA) PO SCH (10:05)
[2022-01-23] MEDS: DOCUSATE SODIUM 100MG CAPSULE PO SCH ×2 (10:05→21:17)
[2022-01-23] MEDS: FINASTERIDE 5MG TAB PO SCH (10:06)
[2022-01-23] MEDS: buPROPion **XL** TABLET 150MG (WELLBUTRIN XL) PO SCH (10:06)
[2022-01-23] MEDS: TAMSULOSIN 0.4 MG CAP PO SCH (10:06)
[2022-01-23] MEDS: SODIUM CHLORIDE 1 GM TAB PO SCH ×3 (10:06→17:22)
[2022-01-23] MEDS: LORATADINE 10 MG TAB PO SCH (10:06)
[2022-01-23] MEDS: BACLOFEN 10 MG TAB PO PRN (10:06)
[2022-01-23] MEDS: ENOXAPARIN 40MG/0.4ML SYRINGE (J1650 PER 10MG) SC SCH (10:07)
[2022-01-23 14:00] VITALS: BP 127/62
[2022-01-23] MEDS ORDERED: PERCOCET 5MG/325MG TAB PO ONE (15:30)
[2022-01-23] MEDS ORDERED: KETOROLAC 30 MG/ML 1ML VIAL IV ONE (15:30)
[2022-01-23] MEDS: DICLOFENAC EPOLAMINE 1.3 % PATCH TOP SCH (17:23)
[2022-01-23] MEDS: ANALGESIC BALM CRM 3OZ TOP SCH ×2 (17:23→21:18)
[2022-01-23 19:43] VITALS: BP 123/52
[2022-01-24] MEDS: DICLOFENAC EPOLAMINE 1.3 % PATCH TOP SCH ×2 (06:02→18:27)
[2022-01-24] MEDS: INSULIN LISPRO (NovoLOG) PER UNIT SC SCH ×4 (07:30→20:27)
[2022-01-24] MEDS: ADVAIR HFA 115/21MCG INHALER INH SCH ×2 (07:57→19:57)
[2022-01-24] MEDS: TIOTROPIUM INHALER/CAPSULE (SPIRIVA) INH SCH (08:00)
[2022-01-24] MEDS: buPROPion **XL** TABLET 150MG (WELLBUTRIN XL) PO SCH (09:15)
[2022-01-24] MEDS: EZETIMIBE 10MG TABLET (ZETIA) PO SCH (09:15)
[2022-01-24] MEDS: GABAPENTIN 100 MG CAP PO SCH ×3 (09:15→20:21)
[2022-01-24] MEDS: rOPINIRole 0.25 MG TAB(REQUIP) PO SCH ×2 (09:15→20:21)
[2022-01-24] MEDS: ENOXAPARIN 40MG/0.4ML SYRINGE (J1650 PER 10MG) SC SCH (09:15)
[2022-01-24] MEDS: DOCUSATE SODIUM 100MG CAPSULE PO SCH ×2 (09:15→20:21)
[2022-01-24] MEDS: TAMSULOSIN 0.4 MG CAP PO SCH (09:15)
[2022-01-24] MEDS: SODIUM CHLORIDE 1 GM TAB PO SCH ×3 (09:15→18:27)
[2022-01-24] MEDS: FINASTERIDE 5MG TAB PO SCH (09:15)
[2022-01-24] MEDS: LORATADINE 10 MG TAB PO SCH (09:16)
[2022-01-24] MEDS: ANALGESIC BALM CRM 3OZ TOP SCH ×4 (09:16→20:25)
[2022-01-24] MEDS: BACLOFEN 10 MG TAB PO PRN (09:20)
[2022-01-24] MEDS: LevoFLOXacin 750 MG TABLET PO SCH (09:20)
[2022-01-24] MEDS: ACETAMINOPHEN TAB 650MG DOSE (2X325MG) PO PRN (09:21)
[2022-01-24 14:00] VITALS: BP 135/81
[2022-01-24] MEDS ORDERED: MOM 30ML SUSPENSION UDC PO PRN (18:30)
[2022-01-24 19:13] LABS: BASO % 0.2 % (0.0-1.0); EOS # 0.1 10^3/uL (0.0-0.5); EOS % 2.2 % (0.0-3.0); HEMATOCRIT 33.8 % (42.0-52.0); HEMOGLOBIN 10.7 g/dl (13.5-17.5); LYMPH # 0.9 10^3/uL (1.5-5.0); MEAN CORPUSCULAR HEMOGLOBIN 32.9 pg (27.0-33.0); MEAN CORPUSCULAR HGB CONC 31.7 g/dl (32.0-36.5); MONO # 0.6 10^3/uL (0.0-0.8); MONO % 10.3 % (2.0-8.0); NEUTROPHILS # 3.9 10^3/uL (1.5-8.5); NEUTROPHILS % 71.1 % (36.0-66.0); PLATELET COUNT, AUTOMATED 246 10^3/uL (150-450); RED BLOOD COUNT 3.25 10^6/uL (4.30-6.10); WHITE BLOOD COUNT 5.4 10^3/uL (4.0-10.0)
[2022-01-24] MEDS ORDERED: MOM 30ML SUSPENSION UDC PO ONE (19:30)
[2022-01-24 19:52] LABS: ALBUMIN 2.9 GM/DL (3.2-5.2); ALT/SGPT 22 U/L (12-78); BILIRUBIN,TOTAL 0.4 MG/DL (0.2-1.0); BLOOD UREA NITROGEN 12 MG/DL (7-18); CALCIUM LEVEL 8.2 MG/DL (8.8-10.2); CARBON DIOXIDE LEVEL 28 MEQ/L (21-32); CHLORIDE LEVEL 99 MEQ/L (98-107); CREATININE FOR GFR 0.97 MG/DL (0.70-1.30); GLOMERULAR FILTRATION RATE > 60.0 (>42); GLUCOSE, FASTING 108 MG/DL (70-100); POTASSIUM SERUM 4.4 MEQ/L (3.5-5.1); SODIUM LEVEL 130 MEQ/L (136-145); TOTAL PROTEIN 6.3 GM/DL (6.4-8.2)
[2022-01-24 20:00] VITALS: BP 146/84
[2022-01-24] MEDS: SENOKOT S TAB PO SCH (20:21)
[2022-01-24] MEDS: MIRALAX *UNIT DOSE* 17GM PACKET PO SCH (20:21)
[2022-01-24] MEDS: ATORVASTATIN 20 MG TAB PO SCH (20:22)
[2022-01-25] VITALS (9 sets, daily range): BP systolic 101–130; BP diastolic 52–67; O2SAT 90
[2022-01-25] MEDS ORDERED: ONDANSETRON 4MG 2ML VIAL IV PRN (04:15)
[2022-01-25] MEDS: PERCOCET 5MG/325MG TAB PO PRN (05:27)
[2022-01-25] MEDS: LevoFLOXacin 750 MG TABLET PO SCH (05:27)
[2022-01-25] MEDS: DICLOFENAC EPOLAMINE 1.3 % PATCH TOP SCH ×2 (05:28→21:00)
[2022-01-25] MEDS: INSULIN LISPRO (NovoLOG) PER UNIT SC SCH ×4 (07:30→21:00)
[2022-01-25] MEDS ORDERED: traMADol 50 MG TAB PO PRN (07:50)
[2022-01-25] MEDS: TIOTROPIUM INHALER/CAPSULE (SPIRIVA) INH SCH (07:53)
[2022-01-25] MEDS: ADVAIR HFA 115/21MCG INHALER INH SCH ×2 (07:53→20:00)
[2022-01-25] MEDS: SODIUM CHLORIDE 1 GM TAB PO SCH ×3 (08:00→17:58)
[2022-01-25] MEDS ORDERED: traMADol 50 MG TAB PO ONE (08:00)
[2022-01-25] MEDS ORDERED: METOCLOPRAMIDE INJ 10MG/2ML VIAL (J2765 PER 1) IV ONE (10:00)
[2022-01-25] MEDS ORDERED: NS 1,000 ML IV ONE (10:00)
[2022-01-25] MEDS: BISACODYL 10 MG SUPP PR SCH ×3 (10:13→18:16)
[2022-01-25] MEDS: MIRALAX *UNIT DOSE* 17GM PACKET PO SCH ×2 (11:53→21:00)
[2022-01-25] MEDS: FINASTERIDE 5MG TAB PO SCH (11:54)
[2022-01-25] MEDS: SENOKOT S TAB PO SCH ×2 (11:54→21:00)
[2022-01-25] MEDS: GABAPENTIN 100 MG CAP PO SCH ×2 (11:55→16:00)
[2022-01-25] MEDS: buPROPion **XL** TABLET 150MG (WELLBUTRIN XL) PO SCH (11:55)
[2022-01-25] MEDS: EZETIMIBE 10MG TABLET (ZETIA) PO SCH (11:55)
[2022-01-25] MEDS: LORATADINE 10 MG TAB PO SCH (11:55)
[2022-01-25] MEDS: rOPINIRole 0.25 MG TAB(REQUIP) PO SCH ×2 (11:55→21:00)
[2022-01-25] MEDS: ENOXAPARIN 40MG/0.4ML SYRINGE (J1650 PER 10MG) SC SCH (11:55)
[2022-01-25] MEDS: TAMSULOSIN 0.4 MG CAP PO SCH (11:55)
[2022-01-25] MEDS: ANALGESIC BALM CRM 3OZ TOP SCH ×4 (11:56→21:00)
[2022-01-25 17:12] LABS: BASO % 0.2 % (0.0-1.0); EOS % 0.4 % (0.0-3.0); HEMATOCRIT 35.4 % (42.0-52.0); HEMOGLOBIN 11.4 g/dl (13.5-17.5); LYMPH # 0.7 10^3/uL (1.5-5.0); LYMPH % 7.5 % (24.0-44.0); MEAN CORPUSCULAR HGB CONC 32.2 g/dl (32.0-36.5); MEAN CORPUSCULAR VOLUME 102.6 fl (80.0-96.0); MONO # 0.8 10^3/uL (0.0-0.8); MONO % 8.6 % (2.0-8.0); NEUTROPHILS # 7.6 10^3/uL (1.5-8.5); NEUTROPHILS % 83.1 % (36.0-66.0); PLATELET COUNT, AUTOMATED 260 10^3/uL (150-450); RED BLOOD COUNT 3.45 10^6/uL (4.30-6.10); WHITE BLOOD COUNT 9.2 10^3/uL (4.0-10.0)
[2022-01-25 17:24] LABS: ABG BASE EXCESS 1.5 (-2.0-2.0); ABG HCO3 25.6 MEQ/L (22.0-26.0); ABG O2 SATURATION 97.2 % (95.0-99.0); ABG PARTIAL PRESSURE CO2 38.7 mmHg (35.0-45.0); ABG STANDARD HCO3 25.8 MEQ/L (22.0-26.0); ABG TOTAL CO2 26.8 MEQ/L (23.0-31.0); ABG pH (ARTERIAL) 7.439 UNITS (7.350-7.450)
[2022-01-25 17:26] LABS: INR 1.07; PROTHROMBIN TIME 14.1 SECONDS (12.5-14.5)
[2022-01-25 17:39] LABS: ERYTHROCYTE SEDIMENTATION RATE 54 mm/hr (0-20)
[2022-01-25 17:44] LABS: CK-MB VALUE MASS 5.3 NG/ML (<3.6); MB/CK RELATIVE INDEX 1.14 (< OR =4)
[2022-01-25 17:51] LABS: ALBUMIN 2.8 GM/DL (3.2-5.2); ALT/SGPT 20 U/L (12-78); BILIRUBIN,TOTAL 0.9 MG/DL (0.2-1.0); BLOOD UREA NITROGEN 13 MG/DL (7-18); C REACTIVE PROTEIN QUANTITATIV 7.05 MG/DL (0.00-0.30); CALCIUM LEVEL 8.3 MG/DL (8.8-10.2); CARBON DIOXIDE LEVEL 25 MEQ/L (21-32); CHLORIDE LEVEL 99 MEQ/L (98-107); CREATININE FOR GFR 1.15 MG/DL (0.70-1.30); GLOMERULAR FILTRATION RATE > 60.0 (>42); GLUCOSE, FASTING 127 MG/DL (70-100); NT-PRO BNP 280 PG/ML (<450); POTASSIUM SERUM 4.4 MEQ/L (3.5-5.1); SODIUM LEVEL 130 MEQ/L (136-145); TOTAL PROTEIN 6.2 GM/DL (6.4-8.2)
[2022-01-25] MEDS: NS 1,000 ML IV SCH ×2 (18:11→18:16)
[2022-01-25] MEDS ORDERED: ISOVUE-370 76% 100ML VIAL As Ordered ONE (19:29)
[2022-01-25] MEDS: NYSTATIN 100,000 UNITS/GM TOPICAL PWD 15 GM TOP SCH (21:00)
[2022-01-25] MEDS: ATORVASTATIN 20 MG TAB PO SCH (21:00)
[2022-01-25] MEDS: cefTRIAXone SOD 1 GM in D5W MINI-BAG PLUS 50 ML IV SCH (21:47)
[2022-01-26] VITALS (13 sets, daily range): BP systolic 106–148; BP diastolic 46–64; O2SAT 89–96
[2022-01-26] MEDS: DICLOFENAC EPOLAMINE 1.3 % PATCH TOP SCH ×2 (05:56→18:26)
[2022-01-26] MEDS: INSULIN LISPRO (NovoLOG) PER UNIT SC SCH ×4 (07:30→20:38)
[2022-01-26] MEDS: ADVAIR HFA 115/21MCG INHALER INH SCH ×2 (07:41→20:40)
[2022-01-26] MEDS: TIOTROPIUM INHALER/CAPSULE (SPIRIVA) INH SCH (07:42)
[2022-01-26] MEDS: SODIUM CHLORIDE 1 GM TAB PO SCH ×3 (07:55→18:24)
[2022-01-26] MEDS: NYSTATIN 100,000 UNITS/GM TOPICAL PWD 15 GM TOP SCH ×2 (09:00→20:34)
[2022-01-26] MEDS ORDERED: GABAPENTIN 100 MG CAP PO SCH (09:00)
[2022-01-26] MEDS: ANALGESIC BALM CRM 3OZ TOP SCH ×4 (09:00→20:34)
[2022-01-26 09:13] LABS: INR 1.18; PROTHROMBIN TIME 15.2 SECONDS (12.5-14.5)
[2022-01-26 09:14] LABS: PARTIAL THROMBOPLASTIN TIME 39.7 SECONDS (24.8-34.2)
[2022-01-26] MEDS: cefTRIAXone SOD 1 GM in D5W MINI-BAG PLUS 50 ML IV SCH ×2 (10:04→20:38)
[2022-01-26] MEDS: FINASTERIDE 5MG TAB PO SCH (10:38)
[2022-01-26] MEDS: MIRALAX *UNIT DOSE* 17GM PACKET PO SCH ×2 (10:38→20:39)
[2022-01-26] MEDS: buPROPion **XL** TABLET 150MG (WELLBUTRIN XL) PO SCH (10:38)
[2022-01-26] MEDS: SENOKOT S TAB PO SCH ×2 (10:39→20:34)
[2022-01-26] MEDS: LORATADINE 10 MG TAB PO SCH (10:39)
[2022-01-26] MEDS: rOPINIRole 0.25 MG TAB(REQUIP) PO SCH ×2 (10:39→20:34)
[2022-01-26] MEDS: EZETIMIBE 10MG TABLET (ZETIA) PO SCH (10:39)
[2022-01-26] MEDS: TAMSULOSIN 0.4 MG CAP PO SCH (10:39)
[2022-01-26 13:54] LABS: PH BODY FLUID 7.603 UNITS (NOT ESTABLISHED); SOURCE, BODY FLUID pH PLEURAL
[2022-01-26 13:57] LABS: APPEARANCE, BODY FLUID CLOUDY (CLEAR); PLEURAL FL COLOR AMBER (COLORLESS); SOURCE, BODY FLUID PLEURAL
[2022-01-26] MEDS: BACLOFEN 5MG PER 1/2 TABLET PO PRN (14:08)
[2022-01-26 14:55] LABS: AMYLASE, BODY FLUID 33 U/L (NOT ESTABLISHED); CHOLESTEROL, BODY FLUID < 50 MG/DL (NOT ESTABLISHED); LDH, BODY FLUID 141 U/L (NOT ESTABLISHED); SOURCE, BODY FLUID AMYLASE PLEURAL; SOURCE, BODY FLUID CHOL PLEURAL; SOURCE, BODY FLUID GLUCOSE PLEURAL; SOURCE, BODY FLUID LDH PLEURAL; SOURCE, BODY FLUID TRIG PLEURAL; TRIGLYCERIDE, BODY FLUID 27 MG/DL (NOT ESTABLISHED)
[2022-01-26 15:02] LABS: SOURCE, BODY FLUID ALBUMIN PLEURAL; SOURCE, BODY FLUID TOT PROTEIN PLEURAL; TOTAL PROTEIN, BODY FLUID 3.8 G/DL (NOT ESTABLISHED)
[2022-01-26] MEDS: ATORVASTATIN 20 MG TAB PO SCH (20:34)
[2022-01-27] VITALS (13 sets, daily range): BP systolic 104–132; BP diastolic 53–98; O2SAT 92–96
[2022-01-27] MEDS: DICLOFENAC EPOLAMINE 1.3 % PATCH TOP SCH ×3 (05:36→17:50)
[2022-01-27] MEDS: ADVAIR HFA 115/21MCG INHALER INH SCH ×2 (07:18→20:36)
[2022-01-27] MEDS: TIOTROPIUM INHALER/CAPSULE (SPIRIVA) INH SCH (07:18)
[2022-01-27] MEDS ORDERED: PIPERACILLIN/TAZOBACTAM SOD 3.375 GM in D5W MINI-BAG PLUS 50 ML IV SCH (07:40)
[2022-01-27 07:48] LABS: HEMATOCRIT 33.9 % (42.0-52.0); HEMOGLOBIN 10.9 g/dl (13.5-17.5); MEAN CORPUSCULAR HGB CONC 32.2 g/dl (32.0-36.5); MEAN CORPUSCULAR VOLUME 102.7 fl (80.0-96.0); PLATELET COUNT, AUTOMATED 273 10^3/uL (150-450); WHITE BLOOD COUNT 9.6 10^3/uL (4.0-10.0)
[2022-01-27 08:32] LABS: ALBUMIN 2.6 GM/DL (3.2-5.2); ALT/SGPT 27 U/L (12-78); BILIRUBIN,TOTAL 0.6 MG/DL (0.2-1.0); BLOOD UREA NITROGEN 16 MG/DL (7-18); CALCIUM LEVEL 8.6 MG/DL (8.8-10.2); CARBON DIOXIDE LEVEL 26 MEQ/L (21-32); CHLORIDE LEVEL 102 MEQ/L (98-107); GLOMERULAR FILTRATION RATE > 60.0 (>42); GLUCOSE, FASTING 114 MG/DL (70-100); POTASSIUM SERUM 4.3 MEQ/L (3.5-5.1); SODIUM LEVEL 134 MEQ/L (136-145); TOTAL PROTEIN 6.1 GM/DL (6.4-8.2)
[2022-01-27] MEDS: INSULIN LISPRO (NovoLOG) PER UNIT SC SCH ×4 (08:34→21:00)
[2022-01-27] MEDS: NYSTATIN 100,000 UNITS/GM TOPICAL PWD 15 GM TOP SCH ×2 (09:00→21:42)
[2022-01-27] MEDS: ANALGESIC BALM CRM 3OZ TOP SCH ×4 (09:00→21:43)
[2022-01-27] MEDS: SODIUM CHLORIDE 1 GM TAB PO SCH ×3 (09:58→17:06)
[2022-01-27] MEDS: MIRALAX *UNIT DOSE* 17GM PACKET PO SCH ×2 (10:00→21:43)
[2022-01-27] MEDS: rOPINIRole 0.25 MG TAB(REQUIP) PO SCH ×2 (10:00→21:44)
[2022-01-27] MEDS: EZETIMIBE 10MG TABLET (ZETIA) PO SCH (10:00)
[2022-01-27] MEDS: SENOKOT S TAB PO SCH ×2 (10:00→21:44)
[2022-01-27] MEDS: buPROPion **XL** TABLET 150MG (WELLBUTRIN XL) PO SCH (10:00)
[2022-01-27] MEDS: TAMSULOSIN 0.4 MG CAP PO SCH (10:00)
[2022-01-27] MEDS: LORATADINE 10 MG TAB PO SCH (10:00)
[2022-01-27] MEDS: FINASTERIDE 5MG TAB PO SCH (10:00)
[2022-01-27] MEDS: PIPERACILLIN/TAZOBACTAM SOD 4.5 GM in D5W MINI-BAG PLUS 50 ML IV SCH ×3 (11:08→21:42)
[2022-01-27] MEDS ORDERED: FUROSEMIDE 20MG/2ML VIAL (J1940) IV ONE (18:10)
[2022-01-27 18:32] LABS: ABG BASE EXCESS 1.7 (-2.0-2.0); ABG HCO3 25.4 MEQ/L (22.0-26.0); ABG O2 SATURATION 98.1 % (95.0-99.0); ABG PARTIAL PRESSURE CO2 36.6 mmHg (35.0-45.0); ABG PARTIAL PRESSURE O2 104.3 mmHg (75.0-100.0); ABG TOTAL CO2 26.5 MEQ/L (23.0-31.0); ABG pH (ARTERIAL) 7.459 UNITS (7.350-7.450)
[2022-01-27] MEDS ORDERED: ALBUTEROL SULFATE 2.5 MG/0.5 ML INH NEB SOLN INH PRN (18:45)
[2022-01-27 18:53] LABS: CK-MB VALUE MASS 12.8 NG/ML (<3.6); MB/CK RELATIVE INDEX 0.43 (< OR =4)
[2022-01-27] MEDS: IPRATROPIUM 0.5MG/ALBUTEROL 2.5MG INH SOL UD 3ML (DUONEB) NEB SCH (20:37)
[2022-01-27] MEDS: ATORVASTATIN 20 MG TAB PO SCH (21:43)
[2022-01-27] MEDS: MAGNESIUM OXIDE 400MG TAB (MAG-OX) PO SCH (21:44)
[2022-01-28] VITALS (17 sets, daily range): BP systolic 100–126; BP diastolic 55–58; O2SAT 93–100
[2022-01-28] MEDS: PIPERACILLIN/TAZOBACTAM SOD 4.5 GM in D5W MINI-BAG PLUS 50 ML IV SCH ×3 (03:25→16:50)
[2022-01-28] MEDS: INSULIN LISPRO (NovoLOG) PER UNIT SC SCH ×4 (07:30→20:01)
[2022-01-28] MEDS: TIOTROPIUM INHALER/CAPSULE (SPIRIVA) INH SCH (07:56)
[2022-01-28] MEDS: IPRATROPIUM 0.5MG/ALBUTEROL 2.5MG INH SOL UD 3ML (DUONEB) NEB SCH ×4 (07:58→20:31)
[2022-01-28] MEDS: ADVAIR HFA 115/21MCG INHALER INH SCH ×2 (07:58→20:32)
[2022-01-28] MEDS: EZETIMIBE 10MG TABLET (ZETIA) PO SCH (08:40)
[2022-01-28] MEDS: SENOKOT S TAB PO SCH ×2 (08:40→20:00)
[2022-01-28] MEDS: SODIUM CHLORIDE 1 GM TAB PO SCH ×3 (08:40→18:28)
[2022-01-28] MEDS: rOPINIRole 0.25 MG TAB(REQUIP) PO SCH ×2 (08:41→20:01)
[2022-01-28] MEDS: LORATADINE 10 MG TAB PO SCH (08:41)
[2022-01-28] MEDS: MIRALAX *UNIT DOSE* 17GM PACKET PO SCH ×2 (08:41→20:01)
[2022-01-28] MEDS: FINASTERIDE 5MG TAB PO SCH (08:41)
[2022-01-28] MEDS: buPROPion **XL** TABLET 150MG (WELLBUTRIN XL) PO SCH (08:41)
[2022-01-28 08:42] LABS: HEMATOCRIT 32.1 % (42.0-52.0); MEAN CORPUSCULAR HEMOGLOBIN 32.8 pg (27.0-33.0); MEAN CORPUSCULAR HGB CONC 31.2 g/dl (32.0-36.5); MEAN CORPUSCULAR VOLUME 105.2 fl (80.0-96.0); PLATELET COUNT, AUTOMATED 263 10^3/uL (150-450); RED BLOOD COUNT 3.05 10^6/uL (4.30-6.10)
[2022-01-28] MEDS: TAMSULOSIN 0.4 MG CAP PO SCH (08:42)
[2022-01-28] MEDS: ANALGESIC BALM CRM 3OZ TOP SCH ×4 (08:42→20:01)
[2022-01-28] MEDS: FUROSEMIDE 20MG/2ML VIAL (J1940) IV SCH (08:43)
[2022-01-28] MEDS: ENOXAPARIN 40MG/0.4ML SYRINGE (J1650 PER 10MG) SC SCH (08:43)
[2022-01-28 09:25] LABS: ALBUMIN 2.3 GM/DL (3.2-5.2); ALT/SGPT 42 U/L (12-78); BILIRUBIN,TOTAL 0.5 MG/DL (0.2-1.0); BLOOD UREA NITROGEN 19 MG/DL (7-18); CALCIUM LEVEL 8.5 MG/DL (8.8-10.2); CARBON DIOXIDE LEVEL 29 MEQ/L (21-32); CHLORIDE LEVEL 105 MEQ/L (98-107); CREATININE FOR GFR 1.14 MG/DL (0.70-1.30); GLOMERULAR FILTRATION RATE > 60.0 (>42); GLUCOSE, FASTING 108 MG/DL (70-100); SODIUM LEVEL 139 MEQ/L (136-145); TOTAL PROTEIN 5.6 GM/DL (6.4-8.2)
[2022-01-28] MEDS: NYSTATIN 100,000 UNITS/GM TOPICAL PWD 15 GM TOP SCH ×2 (09:31→20:02)
[2022-01-28] MEDS: DICLOFENAC EPOLAMINE 1.3 % PATCH TOP SCH (18:28)
[2022-01-28] MEDS: MAGNESIUM OXIDE 400MG TAB (MAG-OX) PO SCH (20:00)
[2022-01-28] MEDS: PERCOCET 5MG/325MG TAB PO PRN (20:00)
[2022-01-28] MEDS: ATORVASTATIN 20 MG TAB PO SCH (20:01)
[2022-01-29] VITALS: BP 96/57
[2022-01-29 04:00] VITALS: BP 109/59
[2022-01-29] MEDS: DICLOFENAC EPOLAMINE 1.3 % PATCH TOP SCH ×2 (05:20→18:00)
[2022-01-29 05:39] LABS: HEMATOCRIT 33.2 % (42.0-52.0); HEMOGLOBIN 10.4 g/dl (13.5-17.5); MEAN CORPUSCULAR HEMOGLOBIN 33.2 pg (27.0-33.0); MEAN CORPUSCULAR HGB CONC 31.3 g/dl (32.0-36.5); MEAN CORPUSCULAR VOLUME 106.1 fl (80.0-96.0); PLATELET COUNT, AUTOMATED 285 10^3/uL (150-450); RED BLOOD COUNT 3.13 10^6/uL (4.30-6.10); WHITE BLOOD COUNT 5.8 10^3/uL (4.0-10.0)
[2022-01-29 06:10] LABS: ALBUMIN 2.3 GM/DL (3.2-5.2); ALT/SGPT 83 U/L (12-78); BILIRUBIN,TOTAL 0.6 MG/DL (0.2-1.0); BLOOD UREA NITROGEN 23 MG/DL (7-18); CALCIUM LEVEL 8.2 MG/DL (8.8-10.2); CARBON DIOXIDE LEVEL 31 MEQ/L (21-32); CHLORIDE LEVEL 103 MEQ/L (98-107); CREATININE FOR GFR 1.04 MG/DL (0.70-1.30); GLOMERULAR FILTRATION RATE > 60.0 (>42); GLUCOSE, FASTING 91 MG/DL (70-100); POTASSIUM SERUM 3.9 MEQ/L (3.5-5.1); SODIUM LEVEL 141 MEQ/L (136-145); TOTAL PROTEIN 5.7 GM/DL (6.4-8.2)
[2022-01-29] MEDS: ADVAIR HFA 115/21MCG INHALER INH SCH ×2 (07:18→17:55)
[2022-01-29] MEDS: TIOTROPIUM INHALER/CAPSULE (SPIRIVA) INH SCH (07:18)
[2022-01-29] MEDS: IPRATROPIUM 0.5MG/ALBUTEROL 2.5MG INH SOL UD 3ML (DUONEB) NEB SCH ×4 (07:19→17:55)
[2022-01-29] MEDS: INSULIN LISPRO (NovoLOG) PER UNIT SC SCH ×4 (07:30→20:14)
[2022-01-29 08:00] VITALS: BP 110/58
[2022-01-29] MEDS: FUROSEMIDE 20MG/2ML VIAL (J1940) IV SCH (09:21)
[2022-01-29] MEDS: EZETIMIBE 10MG TABLET (ZETIA) PO SCH (09:22)
[2022-01-29] MEDS: TAMSULOSIN 0.4 MG CAP PO SCH (09:22)
[2022-01-29] MEDS: MIRALAX *UNIT DOSE* 17GM PACKET PO SCH ×2 (09:22→21:00)
[2022-01-29] MEDS: LORATADINE 10 MG TAB PO SCH (09:22)
[2022-01-29] MEDS: ENOXAPARIN 40MG/0.4ML SYRINGE (J1650 PER 10MG) SC SCH (09:22)
[2022-01-29] MEDS: rOPINIRole 0.25 MG TAB(REQUIP) PO SCH ×2 (09:22→21:03)
[2022-01-29] MEDS: FINASTERIDE 5MG TAB PO SCH (09:22)
[2022-01-29] MEDS: SENOKOT S TAB PO SCH ×2 (09:23→21:03)
[2022-01-29] MEDS: buPROPion **XL** TABLET 150MG (WELLBUTRIN XL) PO SCH (09:23)
[2022-01-29] MEDS: SODIUM CHLORIDE 1 GM TAB PO SCH ×3 (09:23→17:57)
[2022-01-29] MEDS: NYSTATIN 100,000 UNITS/GM TOPICAL PWD 15 GM TOP SCH ×2 (09:24→21:04)
[2022-01-29] MEDS: ANALGESIC BALM CRM 3OZ TOP SCH ×4 (09:25→21:04)
[2022-01-29 12:00] VITALS: BP 147/62
[2022-01-29] MEDS: PERCOCET 5MG/325MG TAB PO PRN (12:47)
[2022-01-29 16:00] VITALS: BP 95/53
[2022-01-29 20:00] VITALS: BP 88/56
[2022-01-29] MEDS: MAGNESIUM OXIDE 400MG TAB (MAG-OX) PO SCH (21:03)
[2022-01-29] MEDS: ATORVASTATIN 20 MG TAB PO SCH (21:03)
[2022-01-30] VITALS: BP_SYST 100; BP_SYST 106; BP_DIAS 50; BP_DIAS 60
[2022-01-30 04:00] VITALS: BP 94/52
[2022-01-30] MEDS: PERCOCET 5MG/325MG TAB PO PRN (04:46)
[2022-01-30] MEDS: DICLOFENAC EPOLAMINE 1.3 % PATCH TOP SCH ×2 (05:57→18:00)
[2022-01-30 06:12] LABS: HEMOGLOBIN 10.2 g/dl (13.5-17.5); MEAN CORPUSCULAR HEMOGLOBIN 32.7 pg (27.0-33.0); MEAN CORPUSCULAR HGB CONC 30.9 g/dl (32.0-36.5); MEAN CORPUSCULAR VOLUME 105.8 fl (80.0-96.0); PLATELET COUNT, AUTOMATED 301 10^3/uL (150-450); RED BLOOD COUNT 3.12 10^6/uL (4.30-6.10); WHITE BLOOD COUNT 4.7 10^3/uL (4.0-10.0)
[2022-01-30 06:52] LABS: ALBUMIN 2.3 GM/DL (3.2-5.2); ALT/SGPT 173 U/L (12-78); BILIRUBIN,TOTAL 0.5 MG/DL (0.2-1.0); BLOOD UREA NITROGEN 21 MG/DL (7-18); CALCIUM LEVEL 8.3 MG/DL (8.8-10.2); CARBON DIOXIDE LEVEL 31 MEQ/L (21-32); CHLORIDE LEVEL 106 MEQ/L (98-107); CREATININE FOR GFR 0.95 MG/DL (0.70-1.30); GLOMERULAR FILTRATION RATE > 60.0 (>42); GLUCOSE, FASTING 91 MG/DL (70-100); POTASSIUM SERUM 3.7 MEQ/L (3.5-5.1); SODIUM LEVEL 144 MEQ/L (136-145); TOTAL PROTEIN 5.5 GM/DL (6.4-8.2)
[2022-01-30] MEDS: TIOTROPIUM INHALER/CAPSULE (SPIRIVA) INH SCH (07:19)
[2022-01-30] MEDS: IPRATROPIUM 0.5MG/ALBUTEROL 2.5MG INH SOL UD 3ML (DUONEB) NEB SCH ×4 (07:19→19:16)
[2022-01-30] MEDS: ADVAIR HFA 115/21MCG INHALER INH SCH ×2 (07:19→19:15)
[2022-01-30] MEDS: INSULIN LISPRO (NovoLOG) PER UNIT SC SCH ×4 (07:30→21:00)
[2022-01-30 07:58] VITALS: BP 120/56
[2022-01-30] MEDS: rOPINIRole 0.25 MG TAB(REQUIP) PO SCH ×2 (08:38→20:11)
[2022-01-30] MEDS: FINASTERIDE 5MG TAB PO SCH (08:38)
[2022-01-30] MEDS: LORATADINE 10 MG TAB PO SCH (08:38)
[2022-01-30] MEDS: TAMSULOSIN 0.4 MG CAP PO SCH (08:38)
[2022-01-30] MEDS: SODIUM CHLORIDE 1 GM TAB PO SCH ×3 (08:38→18:03)
[2022-01-30] MEDS: EZETIMIBE 10MG TABLET (ZETIA) PO SCH (08:38)
[2022-01-30] MEDS: ENOXAPARIN 40MG/0.4ML SYRINGE (J1650 PER 10MG) SC SCH (08:39)
[2022-01-30] MEDS: SENOKOT S TAB PO SCH ×2 (08:39→20:06)
[2022-01-30] MEDS: MIRALAX *UNIT DOSE* 17GM PACKET PO SCH ×2 (08:39→20:06)
[2022-01-30] MEDS: buPROPion **XL** TABLET 150MG (WELLBUTRIN XL) PO SCH (08:39)
[2022-01-30] MEDS: NYSTATIN 100,000 UNITS/GM TOPICAL PWD 15 GM TOP SCH ×2 (08:40→20:06)
[2022-01-30] MEDS: ANALGESIC BALM CRM 3OZ TOP SCH ×4 (08:40→20:06)
[2022-01-30 12:00] VITALS: BP 113/58
[2022-01-30] MEDS: FUROSEMIDE 20 MG TAB PO SCH (16:01)
[2022-01-30 20:00] VITALS: BP 111/53
[2022-01-30] MEDS: ATORVASTATIN 20 MG TAB PO SCH (20:11)
[2022-01-30] MEDS: MAGNESIUM OXIDE 400MG TAB (MAG-OX) PO SCH (20:11)
[2022-01-30] MEDS: ACETAMINOPHEN TAB 650MG DOSE (2X325MG) PO PRN (21:02)
[2022-01-31 04:00] VITALS: BP 114/58
[2022-01-31] MEDS: DICLOFENAC EPOLAMINE 1.3 % PATCH TOP SCH ×2 (05:18→17:39)
[2022-01-31 05:52] LABS: HEMATOCRIT 33.2 % (42.0-52.0); HEMOGLOBIN 10.3 g/dl (13.5-17.5); MEAN CORPUSCULAR HEMOGLOBIN 32.7 pg (27.0-33.0); MEAN CORPUSCULAR VOLUME 105.4 fl (80.0-96.0); PLATELET COUNT, AUTOMATED 307 10^3/uL (150-450); RED BLOOD COUNT 3.15 10^6/uL (4.30-6.10); WHITE BLOOD COUNT 4.8 10^3/uL (4.0-10.0)
[2022-01-31 06:28] LABS: ALBUMIN 2.5 GM/DL (3.2-5.2); ALT/SGPT 150 U/L (12-78); BILIRUBIN,TOTAL 0.3 MG/DL (0.2-1.0); BLOOD UREA NITROGEN 21 MG/DL (7-18); CALCIUM LEVEL 8.5 MG/DL (8.8-10.2); CARBON DIOXIDE LEVEL 30 MEQ/L (21-32); CHLORIDE LEVEL 104 MEQ/L (98-107); CREATININE FOR GFR 1.01 MG/DL (0.70-1.30); GLOMERULAR FILTRATION RATE > 60.0 (>42); GLUCOSE, FASTING 101 MG/DL (70-100); POTASSIUM SERUM 3.5 MEQ/L (3.5-5.1); SODIUM LEVEL 140 MEQ/L (136-145)
[2022-01-31] MEDS: INSULIN LISPRO (NovoLOG) PER UNIT SC SCH ×4 (07:30→21:00)
[2022-01-31] MEDS: ADVAIR HFA 115/21MCG INHALER INH SCH ×2 (07:33→20:07)
[2022-01-31] MEDS: TIOTROPIUM INHALER/CAPSULE (SPIRIVA) INH SCH (07:33)
[2022-01-31] MEDS: IPRATROPIUM 0.5MG/ALBUTEROL 2.5MG INH SOL UD 3ML (DUONEB) NEB SCH ×4 (07:33→20:00)
[2022-01-31 07:36] VITALS: O2SAT 92
[2022-01-31 08:18] VITALS: BP 111/53
[2022-01-31] MEDS: MIRALAX *UNIT DOSE* 17GM PACKET PO SCH ×2 (09:00→21:00)
[2022-01-31] MEDS: EZETIMIBE 10MG TABLET (ZETIA) PO SCH (09:12)
[2022-01-31] MEDS: buPROPion **XL** TABLET 150MG (WELLBUTRIN XL) PO SCH (09:12)
[2022-01-31] MEDS: rOPINIRole 0.25 MG TAB(REQUIP) PO SCH ×2 (09:13→21:19)
[2022-01-31] MEDS: FINASTERIDE 5MG TAB PO SCH (09:13)
[2022-01-31] MEDS: NYSTATIN 100,000 UNITS/GM TOPICAL PWD 15 GM TOP SCH ×2 (09:13→21:07)
[2022-01-31] MEDS: TAMSULOSIN 0.4 MG CAP PO SCH (09:13)
[2022-01-31] MEDS: ENOXAPARIN 40MG/0.4ML SYRINGE (J1650 PER 10MG) SC SCH (09:13)
[2022-01-31] MEDS: FUROSEMIDE 20 MG TAB PO SCH (09:13)
[2022-01-31] MEDS: SENOKOT S TAB PO SCH ×2 (09:13→21:00)
[2022-01-31] MEDS: SODIUM CHLORIDE 1 GM TAB PO SCH ×3 (09:13→17:39)
[2022-01-31] MEDS: LORATADINE 10 MG TAB PO SCH (09:13)
[2022-01-31] MEDS: ANALGESIC BALM CRM 3OZ TOP SCH ×4 (09:14→21:08)
[2022-01-31] MEDS: BACLOFEN 5MG PER 1/2 TABLET PO PRN (11:25)
[2022-01-31] MEDS: ACETAMINOPHEN TAB 650MG DOSE (2X325MG) PO PRN (11:26)
[2022-01-31 20:00] VITALS: BP 134/64
[2022-01-31] MEDS: ATORVASTATIN 20 MG TAB PO SCH (21:07)
[2022-01-31] MEDS: MAGNESIUM OXIDE 400MG TAB (MAG-OX) PO SCH (21:07)
[2022-01-31] MEDS: PERCOCET 5MG/325MG TAB PO PRN (21:22)
[2022-02-01] MEDS: ACETAMINOPHEN TAB 650MG DOSE (2X325MG) PO PRN ×2 (00:43→21:04)
[2022-02-01] MEDS: RAMELTEON 8 MG TAB (ROZEREM) PO PRN (00:44)
[2022-02-01 05:32] LABS: HEMATOCRIT 33.2 % (42.0-52.0); HEMOGLOBIN 10.5 g/dl (13.5-17.5); MEAN CORPUSCULAR HEMOGLOBIN 32.8 pg (27.0-33.0); MEAN CORPUSCULAR HGB CONC 31.6 g/dl (32.0-36.5); MEAN CORPUSCULAR VOLUME 103.8 fl (80.0-96.0); PLATELET COUNT, AUTOMATED 310 10^3/uL (150-450); WHITE BLOOD COUNT 5.5 10^3/uL (4.0-10.0)
[2022-02-01] MEDS: DICLOFENAC EPOLAMINE 1.3 % PATCH TOP SCH ×2 (06:05→17:53)
[2022-02-01 06:19] LABS: ALBUMIN 2.5 GM/DL (3.2-5.2); ALT/SGPT 108 U/L (12-78); BILIRUBIN,TOTAL 0.3 MG/DL (0.2-1.0); BLOOD UREA NITROGEN 19 MG/DL (7-18); CALCIUM LEVEL 8.8 MG/DL (8.8-10.2); CARBON DIOXIDE LEVEL 29 MEQ/L (21-32); CHLORIDE LEVEL 108 MEQ/L (98-107); CREATININE FOR GFR 1.02 MG/DL (0.70-1.30); GLOMERULAR FILTRATION RATE > 60.0 (>42); GLUCOSE, FASTING 96 MG/DL (70-100); POTASSIUM SERUM 3.9 MEQ/L (3.5-5.1); SODIUM LEVEL 142 MEQ/L (136-145); TOTAL PROTEIN 6.3 GM/DL (6.4-8.2)
[2022-02-01] MEDS: INSULIN LISPRO (NovoLOG) PER UNIT SC SCH ×4 (07:30→21:00)
[2022-02-01] MEDS: IPRATROPIUM 0.5MG/ALBUTEROL 2.5MG INH SOL UD 3ML (DUONEB) NEB SCH ×4 (08:00→20:21)
[2022-02-01] MEDS: TIOTROPIUM INHALER/CAPSULE (SPIRIVA) INH SCH (08:54)
[2022-02-01] MEDS: ADVAIR HFA 115/21MCG INHALER INH SCH ×2 (08:54→20:21)
[2022-02-01] MEDS: NYSTATIN 100,000 UNITS/GM TOPICAL PWD 15 GM TOP SCH ×2 (09:02→21:03)
[2022-02-01] MEDS: ENOXAPARIN 40MG/0.4ML SYRINGE (J1650 PER 10MG) SC SCH (09:02)
[2022-02-01] MEDS: ANALGESIC BALM CRM 3OZ TOP SCH ×4 (09:02→21:04)
[2022-02-01 09:03] VITALS: BP 145/66
[2022-02-01] MEDS: FINASTERIDE 5MG TAB PO SCH (09:03)
[2022-02-01] MEDS: buPROPion **XL** TABLET 150MG (WELLBUTRIN XL) PO SCH (09:03)
[2022-02-01] MEDS: SODIUM CHLORIDE 1 GM TAB PO SCH ×3 (09:03→17:47)
[2022-02-01] MEDS: FUROSEMIDE 20 MG TAB PO SCH (09:03)
[2022-02-01] MEDS: TAMSULOSIN 0.4 MG CAP PO SCH (09:03)
[2022-02-01] MEDS: EZETIMIBE 10MG TABLET (ZETIA) PO SCH (09:03)
[2022-02-01] MEDS: MIRALAX *UNIT DOSE* 17GM PACKET PO SCH ×2 (09:03→21:03)
[2022-02-01] MEDS: SENOKOT S TAB PO SCH ×2 (09:03→21:03)
[2022-02-01] MEDS: LORATADINE 10 MG TAB PO SCH (09:03)
[2022-02-01] MEDS: rOPINIRole 0.25 MG TAB(REQUIP) PO SCH ×2 (09:10→21:04)
[2022-02-01] MEDS: BACLOFEN 5MG PER 1/2 TABLET PO PRN (21:03)
[2022-02-01] MEDS: ATORVASTATIN 20 MG TAB PO SCH (21:04)
[2022-02-01] MEDS: MAGNESIUM OXIDE 400MG TAB (MAG-OX) PO SCH (21:05)
[2022-02-02] VITALS: BP 128/59
[2022-02-02] MEDS: RAMELTEON 8 MG TAB (ROZEREM) PO PRN (00:15)
[2022-02-02] MEDS: PERCOCET 5MG/325MG TAB PO PRN (00:16)
[2022-02-02] MEDS: DICLOFENAC EPOLAMINE 1.3 % PATCH TOP SCH ×2 (05:11→18:25)
[2022-02-02 06:13] LABS: HEMATOCRIT 34.4 % (42.0-52.0); HEMOGLOBIN 10.8 g/dl (13.5-17.5); MEAN CORPUSCULAR HGB CONC 31.4 g/dl (32.0-36.5); MEAN CORPUSCULAR VOLUME 105.2 fl (80.0-96.0); PLATELET COUNT, AUTOMATED 317 10^3/uL (150-450); RED BLOOD COUNT 3.27 10^6/uL (4.30-6.10)
[2022-02-02 07:03] LABS: ALBUMIN 2.8 GM/DL (3.2-5.2); ALT/SGPT 87 U/L (12-78); BILIRUBIN,TOTAL 0.4 MG/DL (0.2-1.0); BLOOD UREA NITROGEN 20 MG/DL (7-18); CALCIUM LEVEL 8.8 MG/DL (8.8-10.2); CARBON DIOXIDE LEVEL 29 MEQ/L (21-32); CHLORIDE LEVEL 107 MEQ/L (98-107); CREATININE FOR GFR 1.19 MG/DL (0.70-1.30); GLOMERULAR FILTRATION RATE > 60.0 (>42); GLUCOSE, FASTING 103 MG/DL (70-100); POTASSIUM SERUM 4.2 MEQ/L (3.5-5.1); SODIUM LEVEL 140 MEQ/L (136-145); TOTAL PROTEIN 6.3 GM/DL (6.4-8.2)
[2022-02-02] MEDS: INSULIN LISPRO (NovoLOG) PER UNIT SC SCH ×4 (07:12→20:25)
[2022-02-02] MEDS: ADVAIR HFA 115/21MCG INHALER INH SCH ×2 (07:27→20:27)
[2022-02-02] MEDS: TIOTROPIUM INHALER/CAPSULE (SPIRIVA) INH SCH (07:27)
[2022-02-02] MEDS: IPRATROPIUM 0.5MG/ALBUTEROL 2.5MG INH SOL UD 3ML (DUONEB) NEB SCH ×4 (07:27→20:27)
[2022-02-02 08:01] VITALS: BP 107/54
[2022-02-02] MEDS: MIRALAX *UNIT DOSE* 17GM PACKET PO SCH ×2 (08:40→20:50)
[2022-02-02] MEDS: ENOXAPARIN 40MG/0.4ML SYRINGE (J1650 PER 10MG) SC SCH (08:41)
[2022-02-02] MEDS: ANALGESIC BALM CRM 3OZ TOP SCH ×4 (08:41→20:51)
[2022-02-02] MEDS: EZETIMIBE 10MG TABLET (ZETIA) PO SCH (08:41)
[2022-02-02] MEDS: NYSTATIN 100,000 UNITS/GM TOPICAL PWD 15 GM TOP SCH ×2 (08:41→20:51)
[2022-02-02] MEDS: FINASTERIDE 5MG TAB PO SCH (08:41)
[2022-02-02] MEDS: SODIUM CHLORIDE 1 GM TAB PO SCH ×3 (08:41→18:25)
[2022-02-02] MEDS: LORATADINE 10 MG TAB PO SCH (08:42)
[2022-02-02] MEDS: FUROSEMIDE 20 MG TAB PO SCH (08:42)
[2022-02-02] MEDS: TAMSULOSIN 0.4 MG CAP PO SCH (08:42)
[2022-02-02] MEDS: buPROPion **XL** TABLET 150MG (WELLBUTRIN XL) PO SCH (08:42)
[2022-02-02] MEDS: SENOKOT S TAB PO SCH ×2 (08:42→20:50)
[2022-02-02] MEDS: rOPINIRole 0.25 MG TAB(REQUIP) PO SCH ×2 (08:48→20:50)
[2022-02-02 15:31] VITALS: BP 107/55
[2022-02-02] MEDS: MAGNESIUM OXIDE 400MG TAB (MAG-OX) PO SCH (20:50)
[2022-02-02] MEDS: ATORVASTATIN 20 MG TAB PO SCH (20:50)
[2022-02-03] MEDS: DICLOFENAC EPOLAMINE 1.3 % PATCH TOP SCH ×2 (05:24→17:38)
[2022-02-03 05:40] VITALS: BP 111/55
[2022-02-03] MEDS: ADVAIR HFA 115/21MCG INHALER INH SCH ×2 (06:17→19:37)
[2022-02-03] MEDS: TIOTROPIUM INHALER/CAPSULE (SPIRIVA) INH SCH (06:17)
[2022-02-03] MEDS: IPRATROPIUM 0.5MG/ALBUTEROL 2.5MG INH SOL UD 3ML (DUONEB) NEB SCH ×2 (06:17→19:37)
[2022-02-03 06:45] LABS: HEMATOCRIT 32.7 % (42.0-52.0); HEMOGLOBIN 10.2 g/dl (13.5-17.5); MEAN CORPUSCULAR HEMOGLOBIN 32.6 pg (27.0-33.0); MEAN CORPUSCULAR HGB CONC 31.2 g/dl (32.0-36.5); MEAN CORPUSCULAR VOLUME 104.5 fl (80.0-96.0); PLATELET COUNT, AUTOMATED 316 10^3/uL (150-450); RED BLOOD COUNT 3.13 10^6/uL (4.30-6.10); WHITE BLOOD COUNT 4.6 10^3/uL (4.0-10.0)
[2022-02-03] MEDS: INSULIN LISPRO (NovoLOG) PER UNIT SC SCH ×4 (07:30→21:00)
[2022-02-03 07:31] LABS: ALBUMIN 2.7 GM/DL (3.2-5.2); ALT/SGPT 68 U/L (12-78); BILIRUBIN,TOTAL 0.5 MG/DL (0.2-1.0); BLOOD UREA NITROGEN 18 MG/DL (7-18); CALCIUM LEVEL 8.4 MG/DL (8.8-10.2); CARBON DIOXIDE LEVEL 27 MEQ/L (21-32); CHLORIDE LEVEL 109 MEQ/L (98-107); CREATININE FOR GFR 1.12 MG/DL (0.70-1.30); GLOMERULAR FILTRATION RATE > 60.0 (>42); GLUCOSE, FASTING 84 MG/DL (70-100); SODIUM LEVEL 143 MEQ/L (136-145); TOTAL PROTEIN 5.9 GM/DL (6.4-8.2)
[2022-02-03] MEDS: MIRALAX *UNIT DOSE* 17GM PACKET PO SCH ×2 (07:58→20:25)
[2022-02-03] MEDS: LORATADINE 10 MG TAB PO SCH (08:00)
[2022-02-03] MEDS: FINASTERIDE 5MG TAB PO SCH (08:00)
[2022-02-03] MEDS: ENOXAPARIN 40MG/0.4ML SYRINGE (J1650 PER 10MG) SC SCH (08:00)
[2022-02-03] MEDS: rOPINIRole 0.25 MG TAB(REQUIP) PO SCH ×2 (08:01→20:32)
[2022-02-03] MEDS: SENOKOT S TAB PO SCH ×2 (08:01→20:25)
[2022-02-03] MEDS: buPROPion **XL** TABLET 150MG (WELLBUTRIN XL) PO SCH (08:01)
[2022-02-03] MEDS: SODIUM CHLORIDE 1 GM TAB PO SCH ×3 (08:01→17:34)
[2022-02-03] MEDS: EZETIMIBE 10MG TABLET (ZETIA) PO SCH (08:01)
[2022-02-03] MEDS: TAMSULOSIN 0.4 MG CAP PO SCH (08:02)
[2022-02-03] MEDS: FUROSEMIDE 20 MG TAB PO SCH (08:02)
[2022-02-03] MEDS: ANALGESIC BALM CRM 3OZ TOP SCH ×4 (08:03→20:33)
[2022-02-03] MEDS: NYSTATIN 100,000 UNITS/GM TOPICAL PWD 15 GM TOP SCH ×2 (08:03→20:33)
[2022-02-03 19:29] LABS: HEPATITIS B SURFACE ANTIGEN NEGATIVE (NEGATIVE)
[2022-02-03 19:56] LABS: HEPATITIS C VIRUS ABY INDEX 0.2 INDEX (<0.8)
[2022-02-03 19:57] LABS: HEPATITIS B CORE ANTIBODY IGM NEGATIVE (NEGATIVE)
[2022-02-03] MEDS: ATORVASTATIN 20 MG TAB PO SCH (20:32)
[2022-02-03] MEDS: MAGNESIUM OXIDE 400MG TAB (MAG-OX) PO SCH (20:32)
[2022-02-04] MEDS: DICLOFENAC EPOLAMINE 1.3 % PATCH TOP SCH ×2 (05:24→18:02)
[2022-02-04 06:00] VITALS: BP 126/59
[2022-02-04] MEDS: INSULIN LISPRO (NovoLOG) PER UNIT SC SCH ×4 (07:30→20:23)
[2022-02-04] MEDS: IPRATROPIUM 0.5MG/ALBUTEROL 2.5MG INH SOL UD 3ML (DUONEB) NEB SCH ×4 (08:00→19:25)
[2022-02-04] MEDS: TIOTROPIUM INHALER/CAPSULE (SPIRIVA) INH SCH (08:05)
[2022-02-04] MEDS: ADVAIR HFA 115/21MCG INHALER INH SCH ×2 (08:06→19:25)
[2022-02-04] MEDS: MIRALAX *UNIT DOSE* 17GM PACKET PO SCH ×2 (09:00→20:23)
[2022-02-04] MEDS: SENOKOT S TAB PO SCH ×2 (09:00→20:21)
[2022-02-04] MEDS: FUROSEMIDE 20 MG TAB PO SCH (10:37)
[2022-02-04] MEDS: buPROPion **XL** TABLET 150MG (WELLBUTRIN XL) PO SCH (10:37)
[2022-02-04] MEDS: FINASTERIDE 5MG TAB PO SCH (10:37)
[2022-02-04] MEDS: EZETIMIBE 10MG TABLET (ZETIA) PO SCH (10:37)
[2022-02-04] MEDS: LORATADINE 10 MG TAB PO SCH (10:38)
[2022-02-04] MEDS: TAMSULOSIN 0.4 MG CAP PO SCH (10:38)
[2022-02-04] MEDS: rOPINIRole 0.25 MG TAB(REQUIP) PO SCH ×2 (10:38→20:21)
[2022-02-04] MEDS: NYSTATIN 100,000 UNITS/GM TOPICAL PWD 15 GM TOP SCH ×2 (10:39→20:22)
[2022-02-04] MEDS: ENOXAPARIN 40MG/0.4ML SYRINGE (J1650 PER 10MG) SC SCH (10:39)
[2022-02-04] MEDS: ANALGESIC BALM CRM 3OZ TOP SCH ×4 (10:39→20:22)
[2022-02-04] MEDS: SODIUM CHLORIDE 1 GM TAB PO SCH ×3 (10:43→18:02)
[2022-02-04] MEDS: ATORVASTATIN 20 MG TAB PO SCH (20:21)
[2022-02-04] MEDS: RAMELTEON 8 MG TAB (ROZEREM) PO PRN (20:21)
[2022-02-04] MEDS: PERCOCET 5MG/325MG TAB PO PRN (20:22)
[2022-02-04] MEDS: MAGNESIUM OXIDE 400MG TAB (MAG-OX) PO SCH (20:22)
[2022-02-05] VITALS (8 sets, daily range): BP systolic 81–145; BP diastolic 45–77
[2022-02-05] MEDS: DICLOFENAC EPOLAMINE 1.3 % PATCH TOP SCH ×2 (06:21→18:51)
[2022-02-05] MEDS: INSULIN LISPRO (NovoLOG) PER UNIT SC SCH ×4 (07:30→20:13)
[2022-02-05] MEDS: TIOTROPIUM INHALER/CAPSULE (SPIRIVA) INH SCH (07:35)
[2022-02-05] MEDS: ADVAIR HFA 115/21MCG INHALER INH SCH ×2 (07:35→19:53)
[2022-02-05] MEDS: IPRATROPIUM 0.5MG/ALBUTEROL 2.5MG INH SOL UD 3ML (DUONEB) NEB SCH ×4 (07:37→19:53)
[2022-02-05] MEDS: MIRALAX *UNIT DOSE* 17GM PACKET PO SCH ×2 (08:15→20:18)
[2022-02-05] MEDS: ENOXAPARIN 40MG/0.4ML SYRINGE (J1650 PER 10MG) SC SCH (08:15)
[2022-02-05] MEDS: rOPINIRole 0.25 MG TAB(REQUIP) PO SCH ×2 (08:16→20:19)
[2022-02-05] MEDS: TAMSULOSIN 0.4 MG CAP PO SCH (08:16)
[2022-02-05] MEDS: EZETIMIBE 10MG TABLET (ZETIA) PO SCH (08:16)
[2022-02-05] MEDS: FINASTERIDE 5MG TAB PO SCH (08:16)
[2022-02-05] MEDS: SODIUM CHLORIDE 1 GM TAB PO SCH ×3 (08:16→17:59)
[2022-02-05] MEDS: buPROPion **XL** TABLET 150MG (WELLBUTRIN XL) PO SCH (08:16)
[2022-02-05] MEDS: FUROSEMIDE 20 MG TAB PO SCH (08:17)
[2022-02-05] MEDS: ANALGESIC BALM CRM 3OZ TOP SCH ×4 (08:17→20:20)
[2022-02-05] MEDS: LORATADINE 10 MG TAB PO SCH (08:17)
[2022-02-05] MEDS: SENOKOT S TAB PO SCH ×2 (08:17→20:19)
[2022-02-05] MEDS ORDERED: NITROGLYCERIN 0.4 MG SUBL TABLET SL STA (09:27)
[2022-02-05] MEDS ORDERED: NITROGLYCERIN 0.4 MG SUBL TABLET SL PRN (09:30)
[2022-02-05] MEDS ORDERED: GI COCKTAIL 50ML BTL(HYOSCYAMINE/MAALOX/LIDOCAINE VISCOUS)(1:3:1) PO ONE (09:30)
[2022-02-05] MEDS ORDERED: GI COCKTAIL 50ML BTL(HYOSCYAMINE/MAALOX/LIDOCAINE VISCOUS)(1:3:1) PO PRN (09:30)
[2022-02-05] MEDS ORDERED: ISOVUE-370 76% 100ML VIAL As Ordered ONE (09:41)
[2022-02-05] MEDS: MIDODRINE 5 MG TAB PO SCH ×3 (09:54→16:11)
[2022-02-05 10:34] LABS: CK-MB VALUE MASS 6.5 NG/ML (<3.6); MB/CK RELATIVE INDEX 2.37 (< OR =4)
[2022-02-05 11:55] LABS: BASO % 0.5 % (0.0-1.0); EOS # 0.1 10^3/uL (0.0-0.5); EOS % 2.2 % (0.0-3.0); HEMATOCRIT 33.9 % (42.0-52.0); HEMOGLOBIN 10.8 g/dl (13.5-17.5); LYMPH # 0.9 10^3/uL (1.5-5.0); LYMPH % 24.3 % (24.0-44.0); MEAN CORPUSCULAR HEMOGLOBIN 32.9 pg (27.0-33.0); MEAN CORPUSCULAR HGB CONC 31.9 g/dl (32.0-36.5); MEAN CORPUSCULAR VOLUME 103.4 fl (80.0-96.0); MONO # 0.4 10^3/uL (0.0-0.8); MONO % 11.9 % (2.0-8.0); NEUTROPHILS # 2.2 10^3/uL (1.5-8.5); NEUTROPHILS % 60.6 % (36.0-66.0); PLATELET COUNT, AUTOMATED 302 10^3/uL (150-450); RED BLOOD COUNT 3.28 10^6/uL (4.30-6.10); WHITE BLOOD COUNT 3.7 10^3/uL (4.0-10.0)
[2022-02-05 12:41] LABS: ALBUMIN 2.9 GM/DL (3.2-5.2); ALT/SGPT 51 U/L (12-78); BILIRUBIN,TOTAL 0.5 MG/DL (0.2-1.0); BLOOD UREA NITROGEN 19 MG/DL (7-18); C REACTIVE PROTEIN QUANTITATIV 0.99 MG/DL (0.00-0.30); CALCIUM LEVEL 8.5 MG/DL (8.8-10.2); CARBON DIOXIDE LEVEL 27 MEQ/L (21-32); CHLORIDE LEVEL 103 MEQ/L (98-107); CREATININE FOR GFR 1.22 MG/DL (0.70-1.30); GLOMERULAR FILTRATION RATE > 60.0 (>42); GLUCOSE, FASTING 100 MG/DL (70-100); POTASSIUM SERUM 3.8 MEQ/L (3.5-5.1); SODIUM LEVEL 136 MEQ/L (136-145); TOTAL PROTEIN 6.3 GM/DL (6.4-8.2)
[2022-02-05 15:36] LABS: ERYTHROCYTE SEDIMENTATION RATE 55 mm/hr (0-20)
[2022-02-05] MEDS: MAGNESIUM OXIDE 400MG TAB (MAG-OX) PO SCH (20:19)
[2022-02-05] MEDS: ATORVASTATIN 20 MG TAB PO SCH (20:19)
[2022-02-05] MEDS: RAMELTEON 8 MG TAB (ROZEREM) PO PRN (20:19)
[2022-02-05] MEDS: ACETAMINOPHEN TAB 650MG DOSE (2X325MG) PO PRN (20:20)
[2022-02-06 05:00] VITALS: BP 112/70
[2022-02-06] MEDS: DICLOFENAC EPOLAMINE 1.3 % PATCH TOP SCH ×2 (05:57→18:17)
[2022-02-06] MEDS: INSULIN LISPRO (NovoLOG) PER UNIT SC SCH ×4 (07:30→21:00)
[2022-02-06] MEDS: TIOTROPIUM INHALER/CAPSULE (SPIRIVA) INH SCH (07:54)
[2022-02-06] MEDS: ADVAIR HFA 115/21MCG INHALER INH SCH ×2 (07:54→20:00)
[2022-02-06] MEDS: IPRATROPIUM 0.5MG/ALBUTEROL 2.5MG INH SOL UD 3ML (DUONEB) NEB SCH ×4 (07:55→20:00)
[2022-02-06] MEDS: EZETIMIBE 10MG TABLET (ZETIA) PO SCH (08:14)
[2022-02-06] MEDS: MIRALAX *UNIT DOSE* 17GM PACKET PO SCH ×2 (08:14→20:11)
[2022-02-06] MEDS: ENOXAPARIN 40MG/0.4ML SYRINGE (J1650 PER 10MG) SC SCH (08:14)
[2022-02-06] MEDS: SENOKOT S TAB PO SCH ×2 (08:14→20:11)
[2022-02-06] MEDS: buPROPion **XL** TABLET 150MG (WELLBUTRIN XL) PO SCH (08:14)
[2022-02-06] MEDS: SODIUM CHLORIDE 1 GM TAB PO SCH ×3 (08:14→18:16)
[2022-02-06] MEDS: MIDODRINE 5 MG TAB PO SCH ×3 (08:15→16:00)
[2022-02-06] MEDS: FINASTERIDE 5MG TAB PO SCH (08:15)
[2022-02-06] MEDS: LORATADINE 10 MG TAB PO SCH (08:15)
[2022-02-06] MEDS: rOPINIRole 0.25 MG TAB(REQUIP) PO SCH (08:15)
[2022-02-06] MEDS: FUROSEMIDE 20 MG TAB PO SCH (08:15)
[2022-02-06] MEDS: TAMSULOSIN 0.4 MG CAP PO SCH (08:15)
[2022-02-06 08:16] VITALS: BP 108/67
[2022-02-06] MEDS: ANALGESIC BALM CRM 3OZ TOP SCH ×4 (08:16→20:12)
[2022-02-06 12:24] VITALS: BP 101/61
[2022-02-06 16:39] VITALS: BP 119/58
[2022-02-06 17:07] LABS: ANCA-ATYPICAL <1:20 titer (Neg:<1:20); ANTI DS-DNA AB Negative (Negative); ANTINUCLEAR ANTIBODIES DIRECT Negative (Negative); CYTOPLASMIC NEUTROP AB ANCA-C <1:20 titer (Neg:<1:20); PERINUCLEAR AB ANCA-P <1:20 titer (Neg:<1:20); RNP ANTIBODIES 0.4 AI (0.0-0.9); SMITH ANTIBODIES <0.2 AI (0.0-0.9)
[2022-02-06] MEDS: ACETAMINOPHEN TAB 650MG DOSE (2X325MG) PO PRN (20:11)
[2022-02-06] MEDS: ATORVASTATIN 20 MG TAB PO SCH (20:11)
[2022-02-06] MEDS: MAGNESIUM OXIDE 400MG TAB (MAG-OX) PO SCH (20:11)
[2022-02-07 05:05] VITALS: BP 118/53
[2022-02-07] MEDS: DICLOFENAC EPOLAMINE 1.3 % PATCH TOP SCH ×2 (05:27→17:40)
[2022-02-07] MEDS: INSULIN LISPRO (NovoLOG) PER UNIT SC SCH ×4 (07:30→20:35)
[2022-02-07] MEDS: TIOTROPIUM INHALER/CAPSULE (SPIRIVA) INH SCH (07:49)
[2022-02-07] MEDS: ADVAIR HFA 115/21MCG INHALER INH SCH ×2 (07:49→19:45)
[2022-02-07] MEDS: IPRATROPIUM 0.5MG/ALBUTEROL 2.5MG INH SOL UD 3ML (DUONEB) NEB SCH ×4 (07:50→19:45)
[2022-02-07] MEDS: EZETIMIBE 10MG TABLET (ZETIA) PO SCH (08:15)
[2022-02-07] MEDS: FINASTERIDE 5MG TAB PO SCH (08:15)
[2022-02-07] MEDS: LORATADINE 10 MG TAB PO SCH (08:15)
[2022-02-07] MEDS: SODIUM CHLORIDE 1 GM TAB PO SCH ×3 (08:15→17:36)
[2022-02-07] MEDS: SENOKOT S TAB PO SCH ×2 (08:15→20:35)
[2022-02-07] MEDS: TAMSULOSIN 0.4 MG CAP PO SCH (08:15)
[2022-02-07] MEDS: buPROPion **XL** TABLET 150MG (WELLBUTRIN XL) PO SCH (08:16)
[2022-02-07] MEDS: ENOXAPARIN 40MG/0.4ML SYRINGE (J1650 PER 10MG) SC SCH (08:16)
[2022-02-07] MEDS: MIRALAX *UNIT DOSE* 17GM PACKET PO SCH ×2 (08:16→20:34)
[2022-02-07] MEDS: MIDODRINE 5 MG TAB PO SCH ×3 (08:16→17:37)
[2022-02-07] MEDS: FUROSEMIDE 20 MG TAB PO SCH (08:16)
[2022-02-07] MEDS: ANALGESIC BALM CRM 3OZ TOP SCH ×4 (08:16→20:36)
[2022-02-07 08:17] VITALS: BP 108/53
[2022-02-07] MEDS: ATORVASTATIN 20 MG TAB PO SCH (20:35)
[2022-02-07] MEDS: MAGNESIUM OXIDE 400MG TAB (MAG-OX) PO SCH (20:35)
[2022-02-08 06:00] VITALS: BP 101/71
[2022-02-08] MEDS: INSULIN LISPRO (NovoLOG) PER UNIT SC SCH ×4 (07:30→20:41)
[2022-02-08] MEDS: TIOTROPIUM INHALER/CAPSULE (SPIRIVA) INH SCH (07:50)
[2022-02-08] MEDS: ADVAIR HFA 115/21MCG INHALER INH SCH ×2 (07:50→19:29)
[2022-02-08] MEDS: IPRATROPIUM 0.5MG/ALBUTEROL 2.5MG INH SOL UD 3ML (DUONEB) NEB SCH ×4 (07:51→19:28)
[2022-02-08] MEDS: DICLOFENAC EPOLAMINE 1.3 % PATCH TOP SCH ×2 (07:59→18:02)
[2022-02-08] MEDS: MIRALAX *UNIT DOSE* 17GM PACKET PO SCH ×2 (09:00→20:45)
[2022-02-08] MEDS: ENOXAPARIN 40MG/0.4ML SYRINGE (J1650 PER 10MG) SC SCH (09:06)
[2022-02-08] MEDS: SODIUM CHLORIDE 1 GM TAB PO SCH ×3 (09:07→17:59)
[2022-02-08] MEDS: buPROPion **XL** TABLET 150MG (WELLBUTRIN XL) PO SCH (09:07)
[2022-02-08] MEDS: FINASTERIDE 5MG TAB PO SCH (09:07)
[2022-02-08] MEDS: MIDODRINE 5 MG TAB PO SCH ×3 (09:07→16:21)
[2022-02-08] MEDS: SENOKOT S TAB PO SCH ×2 (09:08→20:44)
[2022-02-08] MEDS: LORATADINE 10 MG TAB PO SCH (09:08)
[2022-02-08] MEDS: TAMSULOSIN 0.4 MG CAP PO SCH (09:08)
[2022-02-08] MEDS: FUROSEMIDE 20 MG TAB PO SCH (09:08)
[2022-02-08] MEDS: EZETIMIBE 10MG TABLET (ZETIA) PO SCH (09:08)
[2022-02-08] MEDS: ANALGESIC BALM CRM 3OZ TOP SCH ×4 (09:13→20:45)
[2022-02-08] MEDS: ATORVASTATIN 20 MG TAB PO SCH (20:45)
[2022-02-08] MEDS: MAGNESIUM OXIDE 400MG TAB (MAG-OX) PO SCH (20:45)
[2022-02-09 06:00] VITALS: BP 97/59
[2022-02-09] MEDS: DICLOFENAC EPOLAMINE 1.3 % PATCH TOP SCH ×2 (06:16→18:53)
[2022-02-09] MEDS: TIOTROPIUM INHALER/CAPSULE (SPIRIVA) INH SCH (07:23)
[2022-02-09] MEDS: ADVAIR HFA 115/21MCG INHALER INH SCH ×2 (07:23→20:32)
[2022-02-09] MEDS: IPRATROPIUM 0.5MG/ALBUTEROL 2.5MG INH SOL UD 3ML (DUONEB) NEB SCH ×4 (07:23→20:00)
[2022-02-09] MEDS: INSULIN LISPRO (NovoLOG) PER UNIT SC SCH ×4 (07:30→20:37)
[2022-02-09] MEDS: EZETIMIBE 10MG TABLET (ZETIA) PO SCH (08:02)
[2022-02-09] MEDS: LORATADINE 10 MG TAB PO SCH (08:02)
[2022-02-09] MEDS: FINASTERIDE 5MG TAB PO SCH (08:02)
[2022-02-09] MEDS: TAMSULOSIN 0.4 MG CAP PO SCH (08:02)
[2022-02-09] MEDS: MIDODRINE 5 MG TAB PO SCH ×3 (08:02→15:18)
[2022-02-09] MEDS: SODIUM CHLORIDE 1 GM TAB PO SCH ×3 (08:02→17:50)
[2022-02-09] MEDS: SENOKOT S TAB PO SCH ×2 (08:02→21:04)
[2022-02-09] MEDS: buPROPion **XL** TABLET 150MG (WELLBUTRIN XL) PO SCH (08:03)
[2022-02-09] MEDS: ENOXAPARIN 40MG/0.4ML SYRINGE (J1650 PER 10MG) SC SCH (08:03)
[2022-02-09] MEDS: FUROSEMIDE 20 MG TAB PO SCH (08:03)
[2022-02-09] MEDS: MIRALAX *UNIT DOSE* 17GM PACKET PO SCH ×2 (08:03→21:04)
[2022-02-09] MEDS: ANALGESIC BALM CRM 3OZ TOP SCH ×4 (08:04→21:04)
[2022-02-09] MEDS: ATORVASTATIN 20 MG TAB PO SCH (21:04)
[2022-02-09] MEDS: MAGNESIUM OXIDE 400MG TAB (MAG-OX) PO SCH (21:04)
[2022-02-10] MEDS: DICLOFENAC EPOLAMINE 1.3 % PATCH TOP SCH (05:31)
[2022-02-10 06:00] VITALS: BP 109/57
[2022-02-10] MEDS: IPRATROPIUM 0.5MG/ALBUTEROL 2.5MG INH SOL UD 3ML (DUONEB) NEB SCH ×2 (08:00→11:33)
[2022-02-10] MEDS: TIOTROPIUM INHALER/CAPSULE (SPIRIVA) INH SCH (08:03)
[2022-02-10] MEDS: ADVAIR HFA 115/21MCG INHALER INH SCH (08:03)
[2022-02-10] MEDS: INSULIN LISPRO (NovoLOG) PER UNIT SC SCH ×2 (08:38→12:00)
[2022-02-10] MEDS: FINASTERIDE 5MG TAB PO SCH (08:39)
[2022-02-10] MEDS: MIDODRINE 5 MG TAB PO SCH ×2 (08:39→12:13)
[2022-02-10] MEDS: EZETIMIBE 10MG TABLET (ZETIA) PO SCH (08:39)
[2022-02-10] MEDS: LORATADINE 10 MG TAB PO SCH (08:40)
[2022-02-10] MEDS: SENOKOT S TAB PO SCH (08:40)
[2022-02-10] MEDS: ENOXAPARIN 40MG/0.4ML SYRINGE (J1650 PER 10MG) SC SCH (08:41)
[2022-02-10] MEDS: FUROSEMIDE 20 MG TAB PO SCH (08:41)
[2022-02-10] MEDS: buPROPion **XL** TABLET 150MG (WELLBUTRIN XL) PO SCH (08:41)
[2022-02-10] MEDS: ANALGESIC BALM CRM 3OZ TOP SCH ×2 (08:42→12:13)
[2022-02-10] MEDS: TAMSULOSIN 0.4 MG CAP PO SCH (08:45)
[2022-02-10] MEDS: MIRALAX *UNIT DOSE* 17GM PACKET PO SCH (08:45)
[2022-02-10] MEDS: SODIUM CHLORIDE 1 GM TAB PO SCH ×2 (08:45→12:12)
[2022-02-10] MEDS ORDERED: SENN-52 PO (10:37)
[2022-02-10] MEDS ORDERED: MUSCCRE9 TOP (10:37)
[2022-02-10] MEDS ORDERED: MIRA1POW3 PO (10:37)
[2022-02-10] MEDS ORDERED: MIDO5TA PO (10:37)
[2022-02-10] MEDS ORDERED: FURO20TA2 PO (10:37)
== END 2022-02-10 15:05 | DRG 698 ==
LOC: EDBD 15:07 → M ED 15:07 → M ED INP 19:25 → ENRESERV 20:38 → M MSPAV 21:07 → M PCU 01-25 17:12 → M MSPAV 02-02 15:40
PROVIDERS: ADMIT Family Medicine; ATTEND Internal Medicine Nephrology
PROC: 0W993ZZ Drainage of Right Pleural Cavity, Percutaneous Approach (ICD-10-PCS; principal; 2022-01-26 12:30)
DX: T83.511A Infection and inflammatory reaction due to indwelling urethral catheter, initial encounter (principal); J96.01 Acute respiratory failure with hypoxia; J18.9 Pneumonia, unspecified organism; G93.41 Metabolic encephalopathy; K56.7 Ileus, unspecified; J90 Pleural effusion, not elsewhere classified; I50.32 Chronic diastolic (congestive) heart failure; E87.1 Hypo-osmolality and hyponatremia; N39.0 Urinary tract infection, site not specified; M48.061 Spinal stenosis, lumbar region without neurogenic claudication; J44.9 Chronic obstructive pulmonary disease, unspecified; I11.0 Hypertensive heart disease with heart failure; F32.A Depression, unspecified; I25.10 Atherosclerotic heart disease of native coronary artery without angina pectoris; E78.5 Hyperlipidemia, unspecified; N40.0 Benign prostatic hyperplasia without lower urinary tract symptoms; G89.29 Other chronic pain; Z87.820 Personal history of traumatic brain injury; I95.9 Hypotension, unspecified; F41.8 Other specified anxiety disorders; R33.9 Retention of urine, unspecified; M62.81 Muscle weakness (generalized); E11.42 Type 2 diabetes mellitus with diabetic polyneuropathy; E78.00 Pure hypercholesterolemia, unspecified; K56.41 Fecal impaction; R29.6 Repeated falls; M54.50 Low back pain, unspecified; H81.10 Benign paroxysmal vertigo, unspecified ear; E53.8 Deficiency of other specified B group vitamins; E55.9 Vitamin D deficiency, unspecified; Z95.2 Presence of prosthetic heart valve; Z92.3 Personal history of irradiation; G25.81 Restless legs syndrome; Z79.899 Other long term (current) drug therapy; B96.1 Klebsiella pneumoniae [K. pneumoniae] as the cause of diseases classified elsewhere; R13.10 Dysphagia, unspecified; Y84.6 Urinary catheterization as the cause of abnormal reaction of the patient, or of later complication, without mention of misadventure at the time of the procedure